=== PATIENT | male | born 1970 | race Caucasian/White ===

== ENCOUNTER → 2018-06-20 14:57 | Outpatient (REF) | payer OTHER, SELFPAY ==
[2018-06-20 18:35] LABS: Basophils % 0.3 % (0.1-2.0); Eosinophils # 0.1 K/mm3 (0.0-0.4); Eosinophils % 1.1 % (0.1-12.0); Hematocrit 42.3 % (42.0-52.0); Hemoglobin 14.1 g/dL (14.1-18.0); Lymphocytes # 2.4 K/mm3 (0.7-4.5); Lymphocytes % 46.2 K/mm3 (10-50); Mean Corpuscular HGB Conc 33.3 g/dL (31.8-35.4); Mean Corpuscular Hemoglobin 30.6 pg (27.0-31.2); Mean Corpuscular Volume 91.9 fl (80-94); Mean Platelet Volume 7.7 fl (7.4-10.4); Monocytes # 0.2 K/mm3 (0.1-1.0); Monocytes % 4.6 % (1.7-9.3); Neutrophils # 2.5 K/mm3 (1.8-7.8); Neutrophils % 47.8 % (37.0-80.0); Platelet Count 116 K/mm3 (142-424); Red Blood Count 4.61 M/mm3 (4.60-6.20); Red Cell Distribution Width 12.8 % (11.5-17.5); White Blood Count 5.3 K/mm3 (4.8-10.8)
[2018-06-20 18:56] LABS: Alanine Aminotransferase 39 U/L (12-78); Albumin Level 3.6 gm/dL (3.4-5.0); Albumin/Globulin Ratio 1.1 (1.1-1.8); Alkaline Phosphatase 193 U/L (46-116); Aspartate Amino Transferase 26 U/L (15-37); Bilirubin,Total 0.3 mg/dL (0.2-1.0); Blood Urea Nitrogen 4 mg/dL (7-18); Calcium 8.9 mg/dL (8.5-10.1); Carbon Dioxide 29 mmol/L (21.0-32.0); Chloride 99 mmol/L (98-107); Cholesterol 132 mg/dL (140-200); Creatinine,Serum 0.99 mg/dL (0.70-1.30); Estimated Glomerular Filt Rate 81 ml/min (>60); Free T4 (Free Thyroxine) 1.02 ng/dl (0.76-1.46); GFR (African American) 98 ML/MIN (>60); Globulin 3.3 gm/dl (1.3-3.2); Glucose 394 mg/dL (74-106); HDL Cholesterol 22 mg/dL (27-67); Sodium 136 mmol/L (136-145); Thyroid Stimulating Hormone 0.94 uIU/ml (0.358-3.740); Total Protein,Serum 6.9 gm/dL (6.4-8.2)
[2018-06-20 19:00] LABS: Hemoglobin A1C 9.7 % (0.0-7.0)
[2018-06-20 19:01] LABS: Triglycerides 420 mg/dL (30-200)
[2018-06-22 10:13] LABS: Creatinine, Urine 79.6 mg/dL (Not Estab.); Microalbumin, Urine 3.7 ug/mL (Not Estab.)
== END ==
LOC: LAB 14:57
PROVIDERS: Visit Provider Emergency Medicine
DX: I10 Essential (primary) hypertension (principal); E11.9 Type 2 diabetes mellitus without complications
CPT/HCPCS: 80053; 80061; 82043; 82570; 83036; 84439; 84443; 85025

== ENCOUNTER → 2018-12-23 16:39 | Outpatient (CLI) | payer OTHER, SELFPAY ==
[2018-12-23 17:27] LABS: Basophils % 0.3 % (0.1-2.0); Eosinophils # 0.1 K/mm3 (0.0-0.4); Eosinophils % 1.4 % (0.1-12.0); Hematocrit 44.7 % (42.0-52.0); Hemoglobin 15.3 g/dL (14.1-18.0); Lymphocytes # 2.4 K/mm3 (0.7-4.5); Lymphocytes % 34.2 % (10-50); Mean Corpuscular HGB Conc 34.3 g/dL (31.8-35.4); Mean Corpuscular Hemoglobin 31.2 pg (27.0-31.2); Mean Corpuscular Volume 90.9 fl (80-94); Mean Platelet Volume 8.2 fl (7.4-10.4); Monocytes # 0.4 K/mm3 (0.1-1.0); Monocytes % 5.4 % (1.7-9.3); Neutrophils # 4.1 K/mm3 (1.8-7.8); Neutrophils % 58.6 % (37.0-80.0); Platelet Count 175 K/mm3 (142-424); Red Blood Count 4.92 M/mm3 (4.60-6.20); White Blood Count 6.9 K/mm3 (4.8-10.8)
[2018-12-23 17:49] LABS: Alanine Aminotransferase 36 U/L (12-78); Albumin/Globulin Ratio 1.1 (1.1-1.8); Alkaline Phosphatase 112 U/L (46-116); Anion Gap 12.9 mEq/L (5-15); Aspartate Amino Transferase 28 U/L (15-37); Bilirubin,Total 0.5 mg/dL (0.2-1.0); Blood Urea Nitrogen 11 mg/dL (7-18); Calcium 9.3 mg/dL (8.5-10.1); Carbon Dioxide 32 mmol/L (21.0-32.0); Chloride 97 mmol/L (98-107); Chol/HDL Ratio 6.7 (1-3.5); Cholesterol 141 mg/dL (140-200); Creatinine,Serum 1.04 mg/dL (0.70-1.30); Estimated Glomerular Filt Rate 76 ml/min (>60); Free T4 (Free Thyroxine) 1.05 ng/dl (0.76-1.46); GFR (African American) 92 ML/MIN (>60); Globulin 3.7 gm/dl (1.3-3.2); Glucose 198 mg/dL (74-106); HDL Cholesterol 21 mg/dL (27-67); Potassium 3.9 mmoL/L (3.5-5.1); Sodium 138 mmol/L (136-145); Thyroid Stimulating Hormone 1.14 uIU/ml (0.358-3.740); Total Protein,Serum 7.7 gm/dL (6.4-8.2)
[2018-12-23 17:50] LABS: Triglycerides 417 mg/dL (30-200)
[2018-12-23 19:32] LABS: Hemoglobin A1C 8.5 % (0.0-7.0)
== END ==
PROVIDERS: Visit Provider Emergency Medicine
DX: E11.9 Type 2 diabetes mellitus without complications (principal); Z79.84 Long term (current) use of oral hypoglycemic drugs
CPT/HCPCS: 80053; 80061; 82652; 83036; 84439; 84443; 85025

== ENCOUNTER → 2019-01-29 17:48 | Outpatient (CLI) | payer OTHER, SELFPAY ==
[2019-01-29 19:00] LABS: Alanine Aminotransferase 36 U/L (12-78); Albumin/Globulin Ratio 1.1 (1.1-1.8); Alkaline Phosphatase 132 U/L (46-116); Anion Gap 13.8 mEq/L (5-15); Aspartate Amino Transferase 26 U/L (15-37); Bilirubin,Total 0.6 mg/dL (0.2-1.0); Blood Urea Nitrogen 11 mg/dL (7-18); Carbon Dioxide 28 mmol/L (21.0-32.0); Chloride 98 mmol/L (98-107); Creatinine,Serum 0.85 mg/dL (0.70-1.30); Estimated Glomerular Filt Rate 96 ml/min (>60); GFR (African American) 116 ML/MIN (>60); Globulin 3.8 gm/dl (1.3-3.2); Glucose 198 mg/dL (74-106); Potassium 3.8 mmoL/L (3.5-5.1); Sodium 136 mmol/L (136-145); Total Protein,Serum 7.8 gm/dL (6.4-8.2)
[2019-01-31 18:09] LABS: Vitamin B12 222 pg/mL (232-1245)
== END ==
PROVIDERS: Visit Provider Nurse Practitioner Family
DX: N28.9 Disorder of kidney and ureter, unspecified (principal)
CPT/HCPCS: 80053; 82607

== ENCOUNTER → 2019-02-19 14:11 | Outpatient (POV) | payer OTHER, SELFPAY | PROVIDERS: Visit Provider Internal Medicine Nephrology | DX: Z00.00 Encounter for general adult medical examination without abnormal findings (principal) ==

== ENCOUNTER → 2020-01-27 16:41 | Outpatient (CLI) | payer OTHER, SELFPAY ==
[2020-01-27 17:16] LABS: Chloride 97 mmol/L (98-107); Potassium 3.8 mmoL/L (3.5-5.1); Sodium 130 mmol/L (136-145)
[2020-01-27 17:18] LABS: Alanine Aminotransferase 36 U/L (12-78); Alkaline Phosphatase 236 U/L (38-126); Aspartate Amino Transferase 44 U/L (17-59); Bilirubin,Total 0.6 mg/dl (0.2-1.3); Blood Urea Nitrogen 5 mg/dl (9-20); Estimated Glomerular Filt Rate 143 ml/min (>60); GFR (African American) 173 ML/MIN (>60)
[2020-01-27 17:19] LABS: Albumin Level 3.9 g/dl (3.5-5.0); Albumin/Globulin Ratio 1.4 (1.1-1.8); Anion Gap 9.8 mEq/L (5-15); Calcium 9.2 mg/dl (8.4-10.2); Carbon Dioxide 27 mmol/L (22.0-30.0); Chol/HDL Ratio 3.2 (1-3.5); Cholesterol 119 mg/dl (140-200); Globulin 2.8 g/dL (1.3-3.2); Glucose 333 mg/dl (74-100); HDL Cholesterol 37 mg/dl (40-60); Total Protein,Serum 6.7 g/dl (6.3-8.2); Triglycerides 206 mg/dl (30-150); VLDL Cholesterol 41 mg/dL (0-40)
[2020-01-27 17:31] LABS: Direct LDL Cholesterol 69.68 mg/dL (100-129)
[2020-01-27 17:35] LABS: T4 (Thyroxine) 13.4 ug/dl (5.53-11.0)
[2020-01-27 17:49] LABS: Thyroid Stimulating Hormone 1.32 uIU/mL (0.465-4.68)
[2020-01-29 07:38] LABS: Vitamin D 25 Hydroxy 38.5 ng/mL (30.0-100.0)
[2020-01-29 09:11] LABS: Creatinine, Urine 202.2 mg/dL (Not Estab.); Microalbumin, Urine 47.5 ug/mL (Not Estab.)
== END ==
PROVIDERS: Visit Provider Emergency Medicine
DX: E11.9 Type 2 diabetes mellitus without complications (principal); G62.9 Polyneuropathy, unspecified; Z79.4 Long term (current) use of insulin
CPT/HCPCS: 80053; 80061; 82043; 82570; 82652; 84436; 84443

== ENCOUNTER → 2020-03-23 15:29 | Outpatient (CLI) | payer OTHER, SELFPAY ==
--- NOTE | 2020-03-23 15:31 | XR_ITS ---
PROCEDURE: XR FOOT WT BEARING RT 3V CLINICAL INDICATION: pain COMPARISON: No exams were available for comparison FINDINGS: No fracture or dislocation. No lytic or blastic change. There is normal mineralization. There are mild osteoarthritic changes at the 1st MTP joint, 1st interphalangeal joint, talonavicular joint, and navicular cuneiform joint. Other findings:None. IMPRESSION: Mild osteoarthritis Dictated by: Glenn Apple MD 03/23/2020 16:14 Electronically signed by Glenn Apple MD in [place] 03/23/2020 16:14
--- NOTE | 2020-03-23 15:31 | XR_ITS ---
PROCEDURE: XR FOOT WT BEARING LT 3V CLINICAL INDICATION: Pain COMPARISON: No exams were available for comparison FINDINGS: No fracture or dislocation. No lytic or blastic change. There is normal mineralization. Mild osteoarthritis 1st MTP joint, 1st interphalangeal joint, talonavicular and navicular cuneiform joint. Other findings:No obvious lytic lesion evident. IMPRESSION: Mild osteoarthritis Dictated by: Glenn Apple MD 03/23/2020 16:15 Electronically signed by Glenn Apple MD in [place] 03/23/2020 16:15
== END ==
PROVIDERS: PCP Emergency Medicine; Visit Provider Nurse Practitioner
DX: M79.672 Pain in left foot (principal); M79.671 Pain in right foot; E11.8 Type 2 diabetes mellitus with unspecified complications; Z79.4 Long term (current) use of insulin
CPT/HCPCS: 73630

== ENCOUNTER 2020-07-13 12:09 | Emergency (ER) | payer OTHER, SELFPAY ==
[2020-07-13 12:11] VITALS: BP 131/81; PULSE 80; RESP 16; TEMP 37.1; O2SAT 97; BMI 35.9
--- NOTE | 2020-07-13 12:16 | HMH.EDBACK ---
ED Disposition Clinical Impression: Back pain Qualifiers: Back pain location: low back pain Chronicity: acute Back pain laterality: left Sciatica presence: without sciatica Qualified Code(s): M54.5 - Low back pain Disposition: Home, Self-Care Condition on Discharge: Good Instructions: DI for Low Back Pain Referrals: Eugene Richards MD [Primary Care Provider] - - Critical Care Critical Care Time: No Attestation: On , the high probability of a clinically significant, sudden or life threatening deterioration of the following system(s) required my full and direct attention, intervention and personal management. The time I documented below is in addition to time spent performing reported procedures but includes the following listed in this critical care notation. Medical Decision Making - Medical Records Medical records reviewed: Yes: I reviewed the patient's medical records. - Doug Inquiry Pt receiving controlled substance: No Vital Signs: 07/13/20 12:11 07/13/20 12:44 Temperature 98.8 F Temperature Source Oral Pulse Rate [Right Radial] 80 79 Respiratory Rate 16 Blood Pressure [Right Arm] 131/81 142/89 H Blood Pressure Mean [Right Arm] 97 106 Blood Pressure Source [Right Arm] Automatic Cuff Automatic Cuff Blood Pressure Position [Right Arm] Sitting Sitting 02 Sat by Pulse Oximetry 97 98 Oxygen Delivery Method Room Air Orders (Tests/Meds): ED MEDICATIONS Discontinued Medications Generic Name Dose Route Start Last Admin Trade Name Simi PRN Reason Stop Dose Admin Ketorolac Tromethamine 60 mg 07/13/20 12:23 07/13/20 12:26 Ketorolac 60mg/2ml Vial IM 07/13/20 12:24 60 mg ONCE ONE Administration - CT Data CT Scan: L-Spine Time Received: 13:[address] Reviewed: Yes: I have reviewed the patient's CT results Findings Narrative: 1. Spine stimulator electrode entering the spinal canal at the L1-2 level and extending upward 2. Posterior osteophytic spurring L4-5 resulting in true bony spinal stenosis at this level 3. Multilevel hypertrophic facet changes Medical Decision Narrative: Patient remains neurovascularly intact, no new motor or sensory symptoms and no signs of cauda equina. He does have a painful retained stimulator which may need further assessment/removal. Unfortunately, Dr. Peacock is not in today, but we were able to obtain an appointment for the patient on Saturday at [address] scan shows some stenosis, arthritis, but no acute findings. He is afebrile, no signs of infection on physical exam or history. I discussed this case also with Dr. Richards who advises that the patient can follow-up in his office for pain control. Given Toradol here. Discharged home. Back Pain HPI - General Stated Complaint: back pain Time Seen by Provider: 07/13/20 12:17 Mode of Arrival: Ambulatory Source of Information: Patient Limitations: No Limitations - History of Present Illness HPI Narrative: This is a 50-year-old male with a past medical history significant for chronic back pain who presents to the emergency department for 2 days of pain over a spinal stimulator in the left lumbar region. Stimulator was placed 20 years ago and only worked for about 5 years. He states initially it started off more laterally and over the years has migrated more medially. He has had pain intermittently over the area of the stimulator for several years, but he feels like it has been much worse over the last 2 days. No known exacerbating or alleviating factors. No fevers, loss of bowel or bladder control or motor or sensory changes to his lower extremities. No trauma. He saw his primary care provider today, Dr. Richards, who advised that he come to the emergency room for a CT scan and consultation with Dr. Peacock. - Related Data Home Medications Medication Instructions Recorded Confirmed Fluticasone/Vilanterol [Breo 1 inh INHALATION Q24H 10/29/18 07/13/20 Ellipta] Previous Rx's Medication
--- NOTE | 2020-07-13 12:20 | CT_ITS ---
PROCEDURE: CT LUMBAR SPINE WO CON CLINICAL HISTORY: migrating spine stimulator? Back pain COMPARISON: No exams were available for comparison TECHNIQUE: Axial images obtained with sagittal and coronal reformats. All CT scans at the facility use one or more dose reduction, viz: automated exposure control, ma/kV adjustment per patient size (including targeted exams where dose is matched to indication, i.e. head), or iterative reconstruction technique. FINDINGS: There is normal curvature and alignment. All lumbar vertebrae appear intact. There is mild posterior osteophytic spurring at the L4-5 level. The electrode for the spine stimulator device enters the spinal canal between the spinous processes of L1 and L2 and extends upward at least to the T11-12 level which is at the top edge of the field of view on this study. The stimulator device sits just posterior to the S1-S2 level in the soft tissues. The spinal canal is lower limits of normal in size throughout. There is probable bony spinal stenosis at L4-5 level secondary to the posterior osteophytic spurring. There is bilateral neural foraminal narrowing at this level as well. There is no abnormal disc protrusion. There are mild hypertrophic facet changes throughout the lumbar spine most prominent at the L5-S1 level. IMPRESSION: 1. Spine stimulator electrode entering the spinal canal at the L1-2 level and extending upward 2. Posterior osteophytic spurring L4-5 resulting in true bony spinal stenosis at this level 3. Multilevel hypertrophic facet changes Dictated by: Dr. Loy Mclaughlin MD 07/13/2020 12:59 Dr. Loy Mclaughlin MD in [place] 07/13/2020 12:59
--- NOTE | 2020-07-13 12:30 | PC.NURSE ---
Pt to rad.
--- NOTE | 2020-07-13 12:30 | PC.NURSE ---
pt to CT
[2020-07-13 12:44] VITALS: BP 142/89; PULSE 79; O2SAT 98
--- NOTE | 2020-07-13 12:44 | PC.NURSE ---
Pt returned from rad.
--- NOTE | 2020-07-13 13:08 | PC.NURSE ---
Called Dr Peacock office, spoke with Lyssa, she stated that dr Peacock is not in the office today but they would get in touch with him and try to get pt on his schedule for saturday.
--- NOTE | 2020-07-13 13:14 | PC.NURSE ---
pt has an appt on Saturday at 3pm with dr. tejada
[2020-07-13 13:31] VITALS: BP 142/89; PULSE 79; RESP 16; TEMP 37.1; O2SAT 98
== END 2020-07-13 13:32 | disposition home or self-care (01) ==
PROVIDERS: Emergency Provider Emergency Medicine; PCP Emergency Medicine
DX: M54.5 Low back pain (principal); J44.9 Chronic obstructive pulmonary disease, unspecified; F33.1 Major depressive disorder, recurrent, moderate; E11.9 Type 2 diabetes mellitus without complications; E78.5 Hyperlipidemia, unspecified; I10 Essential (primary) hypertension; F17.210 Nicotine dependence, cigarettes, uncomplicated; Z79.899 Other long term (current) drug therapy
CPT/HCPCS: 72131; 96372; 99282

== ENCOUNTER → 2020-10-17 19:00 | Outpatient (CLI) | payer OTHER, SELFPAY ==
[2020-10-17 19:12] LABS: Basophils % 0.4 % (0.1-2.0); Eosinophils # 0.1 K/mm3 (0.0-0.4); Eosinophils % 1.7 % (0.1-12.0); Hematocrit 48.7 % (42.0-52.0); Lymphocytes % 40.1 % (10-50); Mean Corpuscular Hemoglobin 32.3 pg (27.0-31.2); Mean Corpuscular Volume 97.8 fl (80-94); Mean Platelet Volume 8.8 fl (7.4-10.4); Monocytes # 0.4 K/mm3 (0.1-1.0); Monocytes % 5.6 % (1.7-9.3); Neutrophils % 52.2 % (37.0-80.0); Platelet Count 160 K/mm3 (142-424); Red Blood Count 4.98 M/mm3 (4.60-6.20); Red Cell Distribution Width 13.7 % (11.5-17.5); White Blood Count 7.6 K/mm3 (4.8-10.8)
[2020-10-17 20:38] LABS: Alanine Aminotransferase 21 U/L (12-78); Albumin Level 4.4 g/dl (3.5-5.0); Albumin/Globulin Ratio 1.4 (1.1-1.8); Alkaline Phosphatase 131 U/L (38-126); Anion Gap 11.1 mEq/L (5-15); Aspartate Amino Transferase 31 U/L (17-59); Bilirubin,Total 0.5 mg/dl (0.2-1.3); Blood Urea Nitrogen 12 mg/dl (9-20); Calcium 9.3 mg/dl (8.4-10.2); Carbon Dioxide 28 mmol/L (22.0-30.0); Chloride 102 mmol/L (98-107); Chol/HDL Ratio 6.1 (1-3.5); Cholesterol 172 mg/dl (140-200); Estimated Glomerular Filt Rate 89 ml/min (>60); GFR (African American) 108 ML/MIN (>60); Globulin 3.1 g/dL (1.3-3.2); Glucose 220 mg/dl (74-100); HDL Cholesterol 28 mg/dl (40-60); Potassium 4.1 mmoL/L (3.5-5.1); Sodium 137 mmol/L (136-145); Total Protein,Serum 7.5 g/dl (6.3-8.2); Triglycerides 314 mg/dl (30-150); VLDL Cholesterol 63 mg/dL (0-40)
[2020-10-17 20:49] LABS: Direct LDL Cholesterol 89.17 mg/dL (100-129)
[2020-10-17 20:58] LABS: Free T4 (Free Thyroxine) 1.17 ng/dl (0.78-2.19)
[2020-10-17 21:11] LABS: Prostate Specific Ag Screen 0.3 ng/ml (0.0-4.0); Thyroid Stimulating Hormone 2.63 uIU/mL (0.465-4.68)
== END ==
PROVIDERS: Visit Provider Emergency Medicine
DX: E11.9 Type 2 diabetes mellitus without complications (principal); E78.5 Hyperlipidemia, unspecified; I10 Essential (primary) hypertension; Z72.0 Tobacco use; Z79.4 Long term (current) use of insulin; Z79.899 Other long term (current) drug therapy; Z12.5 Encounter for screening for malignant neoplasm of prostate
CPT/HCPCS: 80053; 80061; 83036; 84439; 84443; 85025; G0103

== ENCOUNTER → 2020-11-25 14:52 | Outpatient (CLI) | payer OTHER, SELFPAY ==
--- NOTE | 2020-11-25 14:58 | XR_ITS ---
PROCEDURE: XR FOOT LT MIN 3V CLINICAL INDICATION: diabetic foot Redness in 1st COMPARISON: CR XR FOOT WT BEARING RT 3V from 03/23/2020 CR XR FOOT WT BEARING LT 3V from 03/23/2020 FINDINGS: Mild osteoarthritic changes are present at the 1st metatarsophalangeal joint. Soft tissue swelling medial to the 1st interphalangeal joint. A thin curvilinear lucency is noted medial to the interphalangeal joint of the great toe suggesting a small amount of soft tissue gas versus bandage artifact. Osteoarthritic changes are present involving the tarsal metatarsal junction. No bony erosive process is evident. IMPRESSION: Osteoarthritic change. Curvilinear lucency medial to the 1st interphalangeal joint and could be related to small amount of soft tissue gas versus bandage artifact. Gas could be due to infection or open ulceration or recent manipulation. Soft tissue swelling is present at this region. Dictated by: Glenn Apple MD 11/25/2020 15:40 Glenn Apple MD in [place] 11/25/2020 15:40
[2020-11-25 16:09] LABS: Basophils % 0.5 % (0.1-2.0); Eosinophils # 0.1 K/mm3 (0.0-0.4); Hematocrit 47.9 % (42.0-52.0); Hemoglobin 15.1 g/dL (14.1-18.0); Lymphocytes # 1.8 K/mm3 (0.7-4.5); Lymphocytes % 28.7 % (10-50); Mean Corpuscular HGB Conc 31.5 g/dL (31.8-35.4); Mean Corpuscular Hemoglobin 31.2 pg (27.0-31.2); Mean Platelet Volume 7.3 fl (7.4-10.4); Monocytes # 0.3 K/mm3 (0.1-1.0); Monocytes % 4.2 % (1.7-9.3); Neutrophils # 4.2 K/mm3 (1.8-7.8); Neutrophils % 65.7 % (37.0-80.0); Platelet Count 177 K/mm3 (142-424); Red Blood Count 4.84 M/mm3 (4.60-6.20); Red Cell Distribution Width 12.8 % (11.5-17.5); White Blood Count 6.4 K/mm3 (4.8-10.8)
[2020-11-25 16:22] LABS: Alanine Aminotransferase 20 U/L (12-78); Albumin Level 4.4 g/dl (3.5-5.0); Albumin/Globulin Ratio 1.3 (1.1-1.8); Alkaline Phosphatase 125 U/L (38-126); Anion Gap 10.3 mEq/L (5-15); Aspartate Amino Transferase 32 U/L (17-59); Bilirubin,Total 0.5 mg/dl (0.2-1.3); Blood Urea Nitrogen 8 mg/dl (9-20); Calcium 9.3 mg/dl (8.4-10.2); Carbon Dioxide 31 mmol/L (22.0-30.0); Chloride 99 mmol/L (98-107); Estimated Glomerular Filt Rate 119 ml/min (>60); GFR (African American) 144 ML/MIN (>60); Globulin 3.3 g/dL (1.3-3.2); Glucose 238 mg/dl (74-100); Potassium 4.3 mmoL/L (3.5-5.1); Sodium 136 mmol/L (136-145); Total Protein,Serum 7.7 g/dl (6.3-8.2)
[2020-11-25 16:28] LABS: C-Reactive Protein 4.4 mg/L (0-4)
[2020-11-25 16:34] LABS: Erythrocyte Sedimentation Rate 16 mm/hr (0-15)
== END ==
PROVIDERS: PCP Emergency Medicine; Visit Provider Emergency Medicine
DX: E11.8 Type 2 diabetes mellitus with unspecified complications (principal); L08.9 Local infection of the skin and subcutaneous tissue, unspecified; Z79.4 Long term (current) use of insulin
CPT/HCPCS: 36415; 73630; 80053; 83036; 85025; 85651; 86140

== ENCOUNTER 2020-12-08 12:15 | Emergency (ER) | payer OTHER, SELFPAY ==
[2020-12-08 12:16] VITALS: PULSE 105; RESP 16; TEMP 37; O2SAT 98; BMI 35.2
--- NOTE | 2020-12-08 12:24 | XR_ITS ---
PROCEDURE: XR SHOULDER LT MIN 2V CLINICAL INDICATION: PAIN COMPARISON: No exams were available for comparison FINDINGS: There are mild osteoarthritic changes the glenohumeral joint and acromioclavicular joint. Postsurgical changes of the acromioclavicular joint with clip at the distal clavicle. There is some spurring along the undersurface of the a chromium with subacromial stenosis which may result in rotator cuff issues. There is a small area of hyperostosis involving the proximal shaft of the humerus medially benign-appearing. No acute fracture or dislocation. No lytic or blastic change. IMPRESSION: Osteoarthritic and postsurgical changes with subacromial stenosis. No acute finding. Dictated by: Glenn Apple MD 12/08/2020 12:58 Glenn Apple MD in [place] 12/08/2020 12:58
[2020-12-08 12:42] VITALS: BP 150/86; PULSE 100; RESP 19; O2SAT 98; BMI 26.4
--- NOTE | 2020-12-08 12:47 | HMH.EDUTC ---
[facility] [place] Clinical Impression: Shoulder pain, left Qualifiers: Chronicity: unspecified Qualified Code(s): M25.512 - Pain in left shoulder Disposition: Home, Self-Care Condition on Discharge: Good Instructions: DI for Chronic Pain -- Adult, DI for Shoulder Pain Additional Instructions: *Ibuprofen bairon 6 hours with meal as needed for pain/inflammation *Remember you had a Toradol shot in the clinic today, which is similar to Motrin *Not additional anti-inflammatory like motrin, aleve, advil with the above amount of ibuprofen. You can still take Tylenol every 4 hours as needed if you need something else for pain * moist heat every 20 minutes 3-4 times a day to affected area *Keep this area active, no movement leads to more stiffness, However take it easy and avoid heavy lifting pushing or pulling *Follow up with you family doctor if no improvement for further treatment Follow up with Dr Mckenna as scheduled on January 03 at 2pm Return if needed Straight to ER if any life threatening symptom Referrals: Eugene Richards MD [Primary Care Provider] - As needed Josue Mckenna MD [Staff Physician] - 01/03/21 2:00 pm Time of Disposition: 13:22 Medical Decision Making - Doug Inquiry Pt receiving controlled substance: No Doug was queried for this patient: No Vital Signs: 12/08/20 12:16 12/08/20 12:42 Temperature 98.6 F Temperature Source Oral Pulse Rate [Radial] 105 H 100 H Respiratory Rate 16 19 Blood Pressure [Right Arm] 150/86 H Blood Pressure Mean [Right Arm] 107 Blood Pressure Source [Right Arm] Automatic Cuff 02 Sat by Pulse Oximetry 98 98 Oxygen Delivery Method Room Air - Radiology Data #1 Image(s): Shoulder Image Reviewed: Yes I have reviewed radiologist's interpretation Osteoarthritic and postsurgical changes with subacromial stenosis. No acute finding. - Physician Consults Physician Consulted: Bala Time: 13:06 Reason -: Orthopedic Eval/Care Comment/Response: Spoke with staff at Dr Mckenna office and informed them of patient complaint and xray reading patient given appointment for January 03 at 2pm [facility] [place] HPI - General Stated complaint: Lt shoulder pain, unknown origin Time Seen by Provider: 12/08/20 12:48 Mode of Arrival: Ambulatory Source of Information: Patient Limitations: No Limitations Description of Symptoms (Recalled from Triage Doc. by RN): TO ED PER PVT CAR WITH C/O LT SHOULDER PAIN X 1 YEAR PROGRESSIVELY GETTING WORSE - History of Present Illness Provider Complaint: Patient states that he injuried his left shoulder about 15 yrs ago and it was doing fine until about a year ago States that for the last year he has continued to have pain on and off with certain movements that has continued to get worse States that he was supose to have a CT done on the shoulder a month or so ago but wasnt able to keep the appointment due to weather States that last night it started hurting again so today he came in to get it checked - Related Data Home Medications Medication Instructions Recorded Confirmed Fluticasone/Vilanterol [Breo 1 inh INHALATION Q24H 10/29/18 12/08/20 Ellipta] Amlodipine Besylate [Amlodipine See Rx Instructions .ROUTE .COMPLEX 12/08/20 12/08/20 5mg tab] Aspirin [Low Dose Aspirin EC] See Rx Instructions .ROUTE .COMPLEX 12/08/20 12/08/20 Blood Sugar Diagnostic [Advanced See Rx Instructions .ROUTE 12/08/20 12/08/20 Gluc Meter Test Strip] .MEDSUPPLY Blood-Glucose Meter [Blood Glucose See Rx Instructions .ROUTE 12/08/20 12/08/20 Meter] .MEDSUPPLY Cholecalciferol (Vitamin D3) See Rx Instructions .ROUTE .COMPLEX 12/08/20 12/08/20 [Vitamin D3] Insulin NPH Hum/Reg Insulin Hm See Rx Instructions .ROUTE .COMPLEX 12/08/20 12/08/20 [Humulin 70/30 Insulin 100 Units/mL 10mL Vial] Lancets [Pip Lancet] See Rx Instructions .ROUTE 12/08/20 12/08/20 .MEDSUPPLY Lovastatin See Rx Instructions .ROUTE .COMPLEX 12/08/20 12/08/20 Metformin HCl [Glucophage] See Rx Inst
[2020-12-08 13:15] VITALS: BP 148/89; PULSE 99; RESP 18; TEMP 37
== END 2020-12-08 13:24 | disposition home or self-care (01) ==
PROVIDERS: Emergency Provider Nurse Practitioner; PCP Emergency Medicine
DX: M25.512 Pain in left shoulder (principal); E11.9 Type 2 diabetes mellitus without complications; E78.5 Hyperlipidemia, unspecified; I10 Essential (primary) hypertension; J44.9 Chronic obstructive pulmonary disease, unspecified; F33.1 Major depressive disorder, recurrent, moderate; F17.210 Nicotine dependence, cigarettes, uncomplicated; Z79.899 Other long term (current) drug therapy
CPT/HCPCS: 73030; 99202; G0463

== ENCOUNTER → 2021-02-15 12:48 | Outpatient (CLI) | payer OTHER, SELFPAY ==
--- NOTE | 2021-02-15 12:51 | IR_ITS ---
PROCEDURE: IR ARTHROGRAM SHOULDER LT CLINICAL INDICATION: evaluate for rotator cuff tear. Prior surgery. COMPARISON: CR XR SHOULDER LT MIN 2V from 12/08/[address] SHOULDER LT W CON from 02/15/2021 FINDINGS: Following obtaining informed consent and time-out procedure using fluoroscopic guidance and local anesthesia with 1 percent buffered lidocaine, 21 gauge spinal needle was inserted into the shoulder joint via the anterior subcoracoid approach. Approximately 12 mL of a mixture Isovue, gadolinium, and lidocaine were injected into the shoulder joint. The patient tolerated the procedure well without evidence of immediate complication. The Images obtained demonstrates abnormal localization of contrast in the subacromial region outlining the supraspinatus tendon consistent with a full-thickness tear of the supraspinatus tendon. Contrast is also localized along the inferior aspect of the rotator cuff laterally and may represent localization within a tear. Please see the post arthrogram CT report. There is an anchor screw at the distal clavicle. The contrast injected easily with no evidence of adhesive capsulitis. IMPRESSION: The findings are compatible with a full thickness tear of the rotator cuff. Please see the CT arthrogram report for further detail Dictated by: Glenn Apple MD 02/16/2021 09:06 Glenn Apple MD in [place] 02/16/2021 09:06
--- NOTE | 2021-02-15 13:44 | CT_ITS ---
PROCEDURE: CT SHOULDER LT W CON CLINICAL HISTORY: evaluate for rotator cuff Left shoulder pain with limited range of motion COMPARISON: ORAL,SUZIE IR ARTHROGRAM SHOULDER LT from 02/15/2021 TECHNIQUE: Please see arthrogram report for procedure details. Images were obtained following intra-articular injection of contrast. Axial images obtained with sagittal and coronal reformats. All CT scans at the facility use one or more dose reduction, viz: automated exposure control, ma/kV adjustment per patient size (including targeted exams where dose is matched to indication, i.e. head), or iterative reconstruction technique. FINDINGS: There has been prior surgery of the shoulder with a small screw in the distal aspect of the acromion. Hypertrophic changes are present at the acromioclavicular joint. There is subacromial stenosis with a subacromial space measuring approximately 4 mm. There is abnormal localization of contrast in the subacromial region consistent with a full-thickness rotator cuff tear. The tear does appear to be anterior within the supraspinatus tendon region. No obvious labral tear. No acute fracture or dislocation. There is a high-riding humeral head with mild osteoarthritic changes of the glenohumeral joint. IMPRESSION: 1. Full-thickness tear of the rotator cuff which may be within the supraspinatus tendon anteriorly. 2. Postsurgical changes of the acromioclavicular joint with high-riding humeral head and severe subacromial stenosis. 3. Osteoarthritic changes of the AC joint and left shoulder. Dictated by: Glenn Apple MD 02/22/2021 08:59 Glenn Apple MD in [place] 02/22/2021 08:59
== END ==
PROVIDERS: PCP Emergency Medicine; Visit Provider Orthopaedic Surgery
DX: M25.512 Pain in left shoulder (principal)
CPT/HCPCS: 73040; 73201; Q9967

== ENCOUNTER 2021-03-11 13:22 | Emergency (ER) | payer OTHER, SELFPAY ==
[2021-03-11 13:25] VITALS: BP 185/98; PULSE 95; RESP 18; TEMP 36.9; O2SAT 99; BMI 32.3
--- NOTE | 2021-03-11 13:37 | HMH.EDGENADL ---
ED Disposition Clinical Impression: Adrenal nodule, Diverticulosis Disposition: Home, Self-Care Condition on Discharge: Good Referrals: Eugene Richards MD [Primary Care Provider] - 3 days Time of Disposition: 15:25 - Critical Care Critical Care Time: No Attestation: On 03/11/21, the high probability of a clinically significant, sudden or life threatening deterioration of the following system(s) required my full and direct attention, intervention and personal management. The time I documented below is in addition to time spent performing reported procedures but includes the following listed in this critical care notation. Medical Decision Making - Medical Records Medical records reviewed: Yes: I reviewed the patient's medical records. - Doug Inquiry Pt receiving controlled substance: No Vital Signs: 03/11/21 13:25 03/11/21 15:16 Temperature 98.4 F Temperature Source Oral Pulse Rate 83 Pulse Rate [Left] 95 H Respiratory Rate 18 Blood Pressure 160/95 H Blood Pressure [Left Arm] 185/98 H Blood Pressure Mean [Left Arm] 127 Blood Pressure Source [Left Arm] Automatic Cuff Blood Pressure Position [Left Arm] Sitting 02 Sat by Pulse Oximetry 99 99 Oxygen Delivery Method Room Air - Lab Data Lab results reviewed: Yes: I reviewed the patient's lab results. Lab Results 03/11/21 13:40: WBC 6.4, RBC 4.51 L, Hgb 14.3, Hct 41.3 L, MCV 91.5, MCH 31.8 H, MCHC 34.7, RDW 13.4, Plt Count 130 L, MPV 8.3, Neut % (Auto) 53.3, Lymph % (Auto) 38.1, [place] % (Auto) 6.3, Eos % (Auto) 2.0, Baso % (Auto) 0.3, Neut # (Auto) 3.4, Lymph # (Auto) 2.4, [place] # (Auto) 0.4, Eos # (Auto) 0.1, Baso # (Auto) 0.0 03/11/21 13:40: Sodium 136, Potassium 3.9, Chloride 96 L, Carbon Dioxide 30, Anion Gap 13.9, BUN 7 L, Creatinine 0.70, Estimated Creat Clear 196, Estimated GFR 119, Est GFR ( Amer) 144, Glucose 398 H, Calcium 9.2, Total Bilirubin 0.4, AST 35, ALT 30, Alkaline Phosphatase 302 H, Total Protein 7.4, Albumin 4.3, Globulin 3.1, Albumin/Globulin Ratio 1.4 Result diagrams: 03/11/21 13:40 03/11/21 13:40 Orders (Tests/Meds): ED MEDICATIONS Discontinued Medications Generic Name Dose Route Start Last Admin Trade Name Simi PRN Reason Stop Dose Admin Iopamidol 75 ml 03/11/21 14:39 03/11/21 14:39 Iopamidol-370 (76%);100ml Bottle IV 03/11/21 14:40 75 ml ONCE ONE Administration Sodium Chloride 10 ml 03/11/21 14:39 03/11/21 14:39 Sodium Chloride 0.9% 10ml Syr (Rad Only) IV 03/11/21 14:40 10 ml ONCE ONE Administration - CT Data CT Scan: Abdomen, Pelvis Time Received: 14:35 Preliminary Findings: Normal/NAD Findings Narrative: Adrenal nodule, diverticulosis without diverticulitis, stool burden Medical Decision Narrative: 51yo M evaluated for mass to his left lower quadrant. Patient in no acute distress. Routine screening labs and CT with IV contrast of been ordered. CT scan shows an adrenal nodule, diverticulosis without diverticulitis, fair amount of retained stool. Laboratory studies are benign. Results shared with patient at bedside. Encouraged to find bowel regiment that works well for him. Patient is appropriate stable for discharge home at this time. General Adult HPI - General Stated complaint: Lt side pain Time Seen by Provider: 03/11/21 13:38 Mode of Arrival: Ambulatory - History of Present Illness HPI narrative: 51yo M past medical history of hypertension diabetes present emergency department secondary to painful masses left lower abdomen. Patient believes this stems from a fall off a 4 foot patio approximately a month ago. He fell again recently but just noted the lesion yesterday. Denies any change in appetite. States his bowels are working normally. Denies any fever. Reports he has lost significant weight but that was after being diagnosed with diabetes and was intentional. He denies any fever, night sweats. - Related Data Home Medications Medication In
--- NOTE | 2021-03-11 13:58 | CT_ITS ---
PROCEDURE INFORMATION: Exam: CT Abdomen And Pelvis With Contrast Exam date and time: 03/11/2021 1:58 PM Age: 51 years old Clinical indication: Abdominal pain; Localized; Left lower quadrant (llq); Additional info: Palpable llq mass TECHNIQUE: Imaging protocol: Computed tomography of the abdomen and pelvis with contrast. Radiation optimization: All CT scans at this facility use at least one of these dose optimization techniques: automated exposure control; mA and/or kV adjustment per patient size (includes targeted exams where dose is matched to clinical indication); or iterative reconstruction. Contrast material: ISOVUE; Contrast volume: 75 ml; Contrast route: IV; COMPARISON: CT LUMBAR SPINE WO CON 07/13/2020 12:33 PM FINDINGS: Lungs: Atelectatic changes noted within the lung bases. Liver: There is a diffuse decrease in hepatic parenchymal density, consistent with mild fatty infiltration. Gallbladder and bile ducts: Normal. No calcified stones. No ductal dilation. Pancreas: Normal. No ductal dilation. Spleen: The spleen demonstrates punctate calcifications, consistent with remote granulomatous organism exposure. Adrenal glands: Mild thickening of the left adrenal gland. Right adrenal nodule measuring 2.0 cm, likely an adenoma. Kidneys and ureters: Nonspecific low-density foci of the kidneys statistically favor benign cysts, no further follow-up needed, as large as 1.5 cm on the left. Stomach and bowel: Moderate diverticulosis is present in the distal colon. A large amount of stool is noted throughout the colon. Appendix: No evidence of appendicitis. Intraperitoneal space: Normal. No significant fluid collection. Vasculature: The vasculature demonstrates diffuse mild atherosclerotic calcification. Lymph nodes: Unremarkable. No enlarged lymph nodes. Urinary bladder: Unremarkable as visualized. Reproductive: The prostate demonstrates mild nonspecific enlargement. The seminal vesicles are normal. Bones/joints: The lumbar spine demonstrates mild degenerative changes at multiple levels. Soft tissues: dental assistant overlies the posterior soft tissues. IMPRESSION: 1. Right adrenal nodule measuring 2.0 cm, likely an adenoma. 2. Moderate diverticulosis is present in the distal colon. 3. A large amount of stool is noted throughout the colon. COMMENTS: Consistent with the [employer]'s Incidental Findings Committee white paper (J Am Abril Radiol 2018): Any incidental renal lesion less than 1 cm or classified as too small to characterize, or any incidental cystic renal lesion characterized as simple-appearing, is likely benign. No follow-up imaging is recommended for these lesions per consensus recommendations based on imaging criteria.
[2021-03-11 14:07] LABS: Chloride 96 mmol/L (98-107); Potassium 3.9 mmoL/L (3.5-5.1); Sodium 136 mmol/L (136-145)
[2021-03-11 14:10] LABS: Alanine Aminotransferase 30 U/L (12-78); Albumin Level 4.3 g/dl (3.5-5.0); Albumin/Globulin Ratio 1.4 (1.1-1.8); Alkaline Phosphatase 302 U/L (38-126); Anion Gap 13.9 mEq/L (5-15); Aspartate Amino Transferase 35 U/L (17-59); Bilirubin,Total 0.4 mg/dl (0.2-1.3); Blood Urea Nitrogen 7 mg/dl (9-20); Carbon Dioxide 30 mmol/L (22.0-30.0); Creatinine Clearance Estimated 196 mL/min (50-200); Estimated Glomerular Filt Rate 119 ml/min (>60); GFR (African American) 144 ML/MIN (>60); Globulin 3.1 g/dL (1.3-3.2); Total Protein,Serum 7.4 g/dl (6.3-8.2)
[2021-03-11 14:11] LABS: Calcium 9.2 mg/dl (8.4-10.2); Glucose 398 mg/dl (74-100)
[2021-03-11 14:14] LABS: Basophils % 0.3 % (0.1-2.0); Eosinophils # 0.1 K/mm3 (0.0-0.4); Hematocrit 41.3 % (42.0-52.0); Hemoglobin 14.3 g/dL (14.1-18.0); Lymphocytes # 2.4 K/mm3 (0.7-4.5); Lymphocytes % 38.1 % (10-50); Mean Corpuscular HGB Conc 34.7 g/dL (31.8-35.4); Mean Corpuscular Hemoglobin 31.8 pg (27.0-31.2); Mean Corpuscular Volume 91.5 fl (80-94); Mean Platelet Volume 8.3 fl (7.4-10.4); Monocytes # 0.4 K/mm3 (0.1-1.0); Monocytes % 6.3 % (1.7-9.3); Neutrophils # 3.4 K/mm3 (1.8-7.8); Neutrophils % 53.3 % (37.0-80.0); Platelet Count 130 K/mm3 (142-424); Red Blood Count 4.51 M/mm3 (4.60-6.20); Red Cell Distribution Width 13.4 % (11.5-17.5); White Blood Count 6.4 K/mm3 (4.8-10.8)
--- NOTE | 2021-03-11 15:15 | PC.NURSE ---
Final reading for CT of abdomen and pelvis with contrast on pt given to
[2021-03-11 15:16] VITALS: BP 160/95; PULSE 83; O2SAT 99
[2021-03-11 15:36] VITALS: BP 149/88; PULSE 81; RESP 16; TEMP 36.7; O2SAT 100
== END 2021-03-11 15:39 | disposition home or self-care (01) ==
PROVIDERS: Emergency Provider Family Medicine; PCP Emergency Medicine
DX: E27.8 Other specified disorders of adrenal gland (principal); K57.90 Diverticulosis of intestine, part unspecified, without perforation or abscess without bleeding; E78.5 Hyperlipidemia, unspecified; I10 Essential (primary) hypertension; E11.65 Type 2 diabetes mellitus with hyperglycemia; J44.9 Chronic obstructive pulmonary disease, unspecified; F33.1 Major depressive disorder, recurrent, moderate; Z79.899 Other long term (current) drug therapy; F17.210 Nicotine dependence, cigarettes, uncomplicated
CPT/HCPCS: 74177; 80053; 85025; 99282; Q9967

== ENCOUNTER 2021-03-16 18:32 | Emergency (ER) | payer OTHER, SELFPAY ==
[2021-03-16 18:43] VITALS: BP 169/96; PULSE 78; RESP 14; TEMP 37.1; O2SAT 99; BMI 32.2
--- NOTE | 2021-03-16 18:49 | HMH.EDBACK ---
ED Disposition Clinical Impression: Constipation Knee pain Qualifiers: Laterality: left Disposition: Home, Self-Care Condition on Discharge: Good Instructions: DI for Constipation Additional Instructions: Recommend a cleanout protocol at home started by an enema of your choice. I then recommend 6 capfuls of MiraLAX in a 32 ounce Gatorade followed by 2 squares of small chocolate Ex-Lax and then a repeat 6 capfuls of MiraLAX in 32 ounces of Gatorade. Return to the ED for any new or worsening symptoms. Prescriptions: polyethylene glycoL 3350 [Miralax 17gm Packet] 17 gm PO DAILY #30 packet Transmission Status: Pending to [facility] #[id number] Referrals: Eugene Richards MD [Primary Care Provider] - Josue Mckenna MD [Staff Physician] - Time of Disposition: 20:15 - Critical Care Critical Care Time: No Attestation: On 03/16/21, the high probability of a clinically significant, sudden or life threatening deterioration of the following system(s) required my full and direct attention, intervention and personal management. The time I documented below is in addition to time spent performing reported procedures but includes the following listed in this critical care notation. Medical Decision Making - Medical Records Medical records reviewed: Yes: I reviewed the patient's medical records. - Doug Inquiry Pt receiving controlled substance: No Vital Signs: 03/16/21 18:43 Temperature 98.7 F Temperature Source Oral Pulse Rate [Radial] 78 Respiratory Rate 14 Blood Pressure [Right Arm] 169/96 H Blood Pressure Mean [Right Arm] 120 02 Sat by Pulse Oximetry 99 Oxygen Delivery Method Room Air - Lab Data Lab Results 03/16/21 18:55: WBC 8.0, RBC 4.99, Hgb 16.0, Hct 45.2, MCV 90.5, MCH 32.1 H, MCHC 35.5 H, RDW 13.7, Plt Count 166, MPV 7.8, Neut % (Auto) 60.4, Lymph % (Auto) 32.9, [place] % (Auto) 4.9, Eos % (Auto) 1.4, Baso % (Auto) 0.4, Neut # (Auto) 4.8, Lymph # (Auto) 2.6, [place] # (Auto) 0.4, Eos # (Auto) 0.1, Baso # (Auto) 0.0 03/16/21 18:55: Sodium 135 L, Potassium 3.9, Chloride 96 L, Carbon Dioxide 29, Anion Gap 13.9, BUN 8 L, Creatinine 0.70, Estimated Creat Clear 212, Estimated GFR 119, Est GFR ( Amer) 144, Glucose 285 H, Calcium 9.7, AST 38, ALT 35, Total Protein 8.2, Albumin 4.7, Globulin 3.5 H, Albumin/Globulin Ratio 1.3 Result diagrams: 03/16/21 18:55 03/16/21 18:55 Orders (Tests/Meds): ED MEDICATIONS Discontinued Medications Generic Name Dose Route Start Last Admin Trade Name Freq PRN Reason Stop Dose Admin Ketorolac Tromethamine 15 mg 03/16/21 19:32 03/16/21 19:39 Ketorolac 30mg/Ml Vial IV 03/16/21 19:33 15 mg ONCE ONE Administration ORDERS Category Date Time Status XR KUB Stat Exams 03/16/21 19:05 Taken Comprehensive Metabolic Panel Stat Lab 03/16/21 18:55 Results - Radiology Data #1 Image(s): Abdomen Image Reviewed: Yes I reviewed the patient's radiology image Preliminary Findings: Normal/NAD (Significant stool burden throughout the colon) Medical Decision Narrative: 51-year-old male with a history of chronic back issues who presents with complaints of left knee weakness and lower back pain lower abdominal fullness. Patient has significant constipation was seen here previously within the last week review of the CT demonstrates full colonic burden of stool. Patient has not had a significant bowel movement since then and KUB today confirms continued constipation. Patient has normal rectal tone no saddle anesthesia no motor weakness on exam ruling out cauda equina as a likely diagnosis and his story is not consistent with such an etiology. Patient is agreeable to enema however would like to do it at home. He will be given a cleanout regimen and his pain was significantly improved after Flexeril and Toradol therapy. He was discharged home in good condition with appropriate return precautions. Back Pain HPI - General Stated Complai
--- NOTE | 2021-03-16 19:05 | XR_ITS ---
PROCEDURE INFORMATION: Exam: XR Abdomen Exam date and time: 03/16/2021 7:05 PM Age: 51 years old Clinical indication: Condition or disease; Other: No bowel movements for 3 days. ; Additional info: Abdominal pain TECHNIQUE: Imaging protocol: XR of the abdomen. Views: Frontal supine view of the abdomen. 1 View. Total images: 2 COMPARISON: CT ABDOMEN PELVIS W CON 03/11/2021 2:29 PM FINDINGS: Tubes, catheters and devices: Spinal stimulator unit projecting over the lower lumbar region with leads extending into the posterior midline posterior soft tissues of the upper back and into the lower thoracic spinal canal, grossly unchanged from CT 03/11/2021. Lungs: The visualized lung bases are clear. Heart/Mediastinum: Heart size normal. Gastrointestinal tract: Nonobstructive bowel gas pattern. Small to moderate gas and stool in the mid and proximal colonic segments, decreased from CT 03/11/2021, without evidence of significant constipation. Nondilated small bowel loops. No evidence of pneumatosis or portal gas. Intraperitoneal space: No free air is evident. Organs: No evidence of organomegaly. Bones/joints: No acute osseous abnormalities. Mild degenerative lumbar spondylosis. Soft tissues: No gross soft tissue masses. Other findings: No pathological calcifications. IMPRESSION: 1. Small to moderate colonic gas and stool in the mid and proximal segments, with decreased stool burden since 03/11/2021. 2. Additional non-emergent findings detailed above.
[2021-03-16 19:30] LABS: Basophils % 0.4 % (0.1-2.0); Eosinophils # 0.1 K/mm3 (0.0-0.4); Eosinophils % 1.4 % (0.1-12.0); Hematocrit 45.2 % (42.0-52.0); Lymphocytes # 2.6 K/mm3 (0.7-4.5); Lymphocytes % 32.9 % (10-50); Mean Corpuscular HGB Conc 35.5 g/dL (31.8-35.4); Mean Corpuscular Hemoglobin 32.1 pg (27.0-31.2); Mean Corpuscular Volume 90.5 fl (80-94); Mean Platelet Volume 7.8 fl (7.4-10.4); Monocytes # 0.4 K/mm3 (0.1-1.0); Monocytes % 4.9 % (1.7-9.3); Neutrophils # 4.8 K/mm3 (1.8-7.8); Neutrophils % 60.4 % (37.0-80.0); Platelet Count 166 K/mm3 (142-424); Red Blood Count 4.99 M/mm3 (4.60-6.20); Red Cell Distribution Width 13.7 % (11.5-17.5)
[2021-03-16 19:48] LABS: Chloride 96 mmol/L (98-107); Potassium 3.9 mmoL/L (3.5-5.1); Sodium 135 mmol/L (136-145)
[2021-03-16 19:50] LABS: Blood Urea Nitrogen 8 mg/dl (9-20)
[2021-03-16 19:51] LABS: Alanine Aminotransferase 35 U/L (12-78); Albumin Level 4.7 g/dl (3.5-5.0); Albumin/Globulin Ratio 1.3 (1.1-1.8); Anion Gap 13.9 mEq/L (5-15); Aspartate Amino Transferase 38 U/L (17-59); Calcium 9.7 mg/dl (8.4-10.2); Carbon Dioxide 29 mmol/L (22.0-30.0); Creatinine Clearance Estimated 212 mL/min (50-200); Estimated Glomerular Filt Rate 119 ml/min (>60); GFR (African American) 144 ML/MIN (>60); Globulin 3.5 g/dL (1.3-3.2); Glucose 285 mg/dl (74-100); Total Protein,Serum 8.2 g/dl (6.3-8.2)
[2021-03-16 20:30] LABS: Alkaline Phosphatase 179 U/L (38-126); Bilirubin,Total 0.4 mg/dl (0.2-1.3)
[2021-03-16 21:06] VITALS: BP 142/70; PULSE 73; RESP 17; TEMP 36.7; O2SAT 98
== END 2021-03-16 21:10 | disposition home or self-care (01) ==
PROVIDERS: Emergency Provider Student in an Organized Health Care Education/Training Program; PCP Emergency Medicine
DX: K59.00 Constipation, unspecified (principal); M25.562 Pain in left knee; J44.9 Chronic obstructive pulmonary disease, unspecified; E11.9 Type 2 diabetes mellitus without complications; E78.5 Hyperlipidemia, unspecified; I10 Essential (primary) hypertension; F17.210 Nicotine dependence, cigarettes, uncomplicated; Z79.899 Other long term (current) drug therapy
CPT/HCPCS: 74018; 80053; 85025; 96375; 99282; 99283

== ENCOUNTER → 2021-07-03 14:05 | Outpatient (CLI) | payer OTHER, SELFPAY ==
[2021-07-03 14:43] LABS: Amphetamine/Metha Screen,Urine Negative ng/ml (<1000); Benzodiazepines Screen,Urine Negative ng/ml (<200)
[2021-07-03 14:44] LABS: Barbiturates Screen,Urine Negative ng/ml (<200)
[2021-07-03 14:46] LABS: Methadone Screen,Urine Positive ng/ml (<300)
[2021-07-03 14:47] LABS: Cannabinoid Screen,Urine Negative ng/ml (<50); Cocaine Screen,Urine Negative ng/ml (<300)
[2021-07-03 14:48] LABS: Opiate Screen,Urine Positive ng/ml (<300)
[2021-07-03 14:49] LABS: Phencyclidine Screen,Urine Negative ng/ml (<25)
[2021-07-03 15:10] LABS: Microalbumin/Creatinine Ratio 17.6
[2021-07-03 15:13] LABS: Creatinine,Urine Random 148 mg/dL (Not Estab.)
== END ==
PROVIDERS: Visit Provider Emergency Medicine
DX: E11.9 Type 2 diabetes mellitus without complications (principal); Z79.899 Other long term (current) drug therapy; Z79.4 Long term (current) use of insulin
CPT/HCPCS: 80305; 82043; 82570

== ENCOUNTER → 2021-09-25 14:26 | Outpatient (POV) | payer OTHER, SELFPAY ==
[2021-09-25 14:47] VITALS: BP 176/108; PULSE 100; RESP 18; O2SAT 100; BMI 32.3
--- NOTE | 2021-09-25 15:16 | HMH.PMCON ---
Assessment and Plan (1) Degenerative joint disease (DJD) of lumbar spine Status: Chronic Category: Medical Code(s): M47.816 - Spondylosis without myelopathy or radiculopathy, lumbar region (2) Lumbar radiculopathy Status: Chronic Category: Medical Code(s): M54.16 - Radiculopathy, lumbar region (3) Malfunction of spinal cord stimulator Status: Acute Category: Medical Code(s): T85.192A - Other mechanical complication of implanted electronic neurostimulator of spinal cord electrode (lead), initial encounter - Assessment and plan all Dx Assessment and Plan for all problems:: Patient's spinal cord stimulator is approximately 27 years old with nonrechargeable battery and 1-lead. [employer] was contacted regarding the device. Device was implanted by Dr. Moreno. We will schedule him for change of the device through [employer] spinal cord stimulator. We will also schedule patient for CT scan lumbar spine to determine if any changes from last imaging. Patient is not on any anticoagulation therapy and is not diabetic. Back in the clinic after change of device and to discuss CT scan. We will also order the patient Burton 5 mg 1 tablet p.o. twice daily as needed moderate pain until he is able to undergo change of device. Patient's pain is a 9 out of 10 at this time. ORT is minimal risk. Patient has signed and completed a pain management agreement/contract today. Risks and benefits of the procedure have been explained to the patient. Patient would like to proceed with the procedure. Risks and benefits of the medication have been explained in detail to the patient. The patient does understand the risk of dependence on the medication when given over a prolonged period. Patient has been advised of risks of oversedation with the prescribed medication. Narcan has been offered to the paitent in the event of oversedation. Patient has been advised that a family member should also be educated regarding administration of Narcan. The patient has been advised to consult with his/her primary care provider and pharmacist regarding drug-drug interaction of medications currently prescribed. Patient has been prescribed a controlled substance after being counseled on the medication, medication safety, and possible side effects. CHILO report has been obtained and reviewed prior to prescription and found to be appropriate. Opioid contract was reviewed and signed by the patient, and that they have agreed to all of the terms set forth by our compliance program. Patient has been instructed to contact the clinic with any concerns before the next appointment. Dr. Peacock has reviewed this note and agrees with this plan of care. This note was dictated using voice recognition software and make contain errors or omissions. HPI - Data of Consult Patient: new to practice Consult date: 09/25/21 Requesting Physician: Terri Alfaro APRN - Consult Narrative Reason for consult: left low back pain History of present illness: Mr. Kelley is a 51 year old male who presents today for consultation for left low back pain. The patient says that he began to develop severe left low back pain with radiation into left hip and left leg approximately 1 month ago. He does have a spinal cord stimulator?29[employer] that was implanted by Dr. Coreas right 27 years ago. The device has 1-lead. He says since presentation of left low back pain he has been having frequent falls. He rates his pain a 9 out of 10 today. He has not had any recent imaging. He says that the device does not seem to be working any longer. Pain is primarily over the device site today. He denies any changes in bowel or bladder habit. He is having numbness and tingling into his left leg and foot. History tried home stretching along with anti-inflammatories and physical therapy for greater than 6 weeks in the past. Patient would like to proceed with change of his device. CC: Meghana
== END ==
PROVIDERS: Visit Provider Clinical Nurse Specialist Family Health
DX: M47.896 Other spondylosis, lumbar region (principal); M54.16 Radiculopathy, lumbar region; T85.192A Other mechanical complication of implanted electronic neurostimulator of spinal cord electrode (lead), initial encounter
CPT/HCPCS: 99202; G0463

== ENCOUNTER → 2021-09-27 07:50 | Outpatient (CLI) | payer OTHER, SELFPAY ==
--- NOTE | 2021-09-27 07:56 | CT_ITS ---
FINAL REPORT CLINICAL HISTORY: BACk and leg pain pt has had pain pump put in 30 years ago and it has moved and now causing pt pain COMPARISON: 07/13/2020 FINDINGS: Axial imaging of the lumbar spine was obtained without contrast. Sagittal and coronal reformatted images were also obtained and reviewed.This study was performed with techniques to keep radiation doses as low as reasonably achievable (ALARA). Individualized dose reduction techniques using automated exposure control or adjustment of mA and/or kV according to the patient's size were employed. There is no fracture. The vertebral alignment is normal. There are moderate degenerative changes. Spinal catheter is again identified and enters at the L1-2 level. L1-2: An annular bulge and facet arthropathy are identified. There is no evidence of central canal stenosis or neural foraminal narrowing. L2-3: An annular bulge and facet arthropathy are identified. There is mild bilateral neural foraminal narrowing. L3-4: An annular bulge is present. Facet arthropathy and osteophytes are present. There is moderate bilateral neural foraminal narrowing. L4-5: An annular bulge is present. Facet arthropathy and osteophytes are present. Central and left paracentral partially calcified disc protrusion is again identified and indents the thecal sac. There is bilateral lateral recess stenosis and severe bilateral neural foraminal narrowing. There is mild central canal stenosis with an AP diameter of the thecal sac of 9 mm. L5-S1: An annular bulge is present. Facet arthropathy and osteophytes are present. There is moderate right and severe left neural foraminal narrowing. There are degenerative changes of the sacroiliac joints with partial fusion. IMPRESSION: Central left and left paracentral partially calcified disc protrusion at L4-5 results in bilateral lateral recess stenosis, severe bilateral neural foraminal narrowing, and mild central canal stenosis. Multilevel degenerative disc disease and spondylosis. Reviewed, Interpreted and Dictated by Tristan Powers III, MD Transcribed by Judy Mendoza Authenticated by Tristan Powers III, MD on 09/27/2021 09:56:36 AM [facility]
== END ==
PROVIDERS: PCP Emergency Medicine; Visit Provider Clinical Nurse Specialist Family Health
DX: M54.50 Low back pain, unspecified (principal); M79.605 Pain in left leg; M79.604 Pain in right leg
CPT/HCPCS: 72131

== ENCOUNTER → 2021-10-12 11:00 | Outpatient (POV) | payer OTHER, SELFPAY ==
[2021-10-12 11:20] VITALS: BP 174/84; PULSE 83; RESP 18; O2SAT 99; BMI 31.6
--- NOTE | 2021-10-12 12:18 | HMH.PAINSOAP ---
[facility] Pain Management SOAP Note Subjective:: Patient is a 51-year-old white male who presents today for follow-up. He was recently sent for imaging of his lumbar spine. Patient was referred to us for chronic left low back pain. Patient does say that the pain radiates into his left hip and left leg. The pain progressively worsened over the last month. He does have a [employer]onic spinal cord stimulator that is in place. He says it was implanted [address] Redding.. The device does have 1-lead. He says that the device has not been working for some time. He was referred for possible change out of device. Patient says after further consideration, he does not feel that a stimulator will give him significant relief. The device never gave him great relief since implant. He says that he is more interested in the intrathecal pump for long-term pain relief. He has had injective therapy in the past with minimal relief. He has had physical therapy for more than 6 weeks in the past along with home stretching. He has also tried anti-inflammatories and opiates with minimal relief. He is interested in proceeding with an intrathecal pain pump trial. Today, the patient rates his pain an 8 out of 10. Review of Systems General: No recent weight changes, no fever, no sleep disturbances Respiratory: No cough, no shortness of air, no recurring pulmonary infections Cardiovascular/peripheral vascular: No chest pain, no palpitations, no edema, no shortness of breath Gastrointestinal: No new onset incontinence, normal bowel movements reported Genitourinary: No new onset incontinence Musculoskeletal: Left low back pain with radiation into left hip and leg Psychiatric: [Normal mood/affect] Neurological: [Denies weakness in extremities], [denies balance issues] Objective:: Physical exam General: Alert and oriented x3, no acute distress, pleasant and cooperative Lungs: Respirations even and unlabored, symmetrical chest expansion Eyes: PERRL Musculoskeletal: Flexion and extension of lumbar [spine] somewhat guarded secondary to pain, [antalgic gait noted] Neurological: Speech clear, no gross sensory deficit Assessment:: Degenerative disc disease lumbar spine with lumbar radiculopathy symptoms, end of life spinal cord stimulator Plan:: We will schedule the patient for a psychological evaluation to determine if he is an appropriate candidate for intrathecal therapy. We will plan to see him back after the evaluation to discuss a further plan of care. He has been instructed to contact clinic if he has any concerns for his next appointment. Patient has been instructed to contact the clinic with any concerns before the next appointment. Dr. Peacock has reviewed this note and agrees with this plan of care. This note was dictated using voice recognition software and make contain errors or omissions. [facility] History I have reviewed the patient's past medical history: Yes Medical History: Reports:: Chronic Obstructive Pulmonary Disease (COPD), Depression, Diabetes Mellitus Type 2, Hyperlipidemia, Hypertension Denies:: Cancer, Diabetes Mellitus Type 1, Internal Pacemaker, MRSA, Seizures *Have you ever received a pneumonia vaccine?: No *Have you received a flu vaccine this season?: No Other Medical History: Denies: Blood Transfusion Reaction Laterality Cases: Left: Arthroscopy Knee, Arthroscopy Shoulder Other Surgeries: Yes: No Previous Surgery, Other. No: Pacemaker Amputation: No Fractures: No - *Social History Smoking Status: Current every day smoker Tobacco Type: cigarettes # Packs/Day (cigarettes): 1 Alcohol Intake: never Substance Use Type: denies use *Occupational Status:: unemployed Housing: house Household Members: spouse *Travel in the last 8 weeks: None - Psychiatric History Pschychiatric History:: Reports:: Depression Family Hx:: Cancer, Coronary Artery Disease, Diabetes, Heart Attack, Hypertension, Stroke
== END ==
PROVIDERS: Visit Provider Clinical Nurse Specialist Family Health
DX: M51.16 Intervertebral disc disorders with radiculopathy, lumbar region (principal)
CPT/HCPCS: 99212; G0463

== ENCOUNTER → 2021-11-24 15:04 | Outpatient (CLI) | payer OTHER, SELFPAY ==
[2021-11-24 14:26] LABS: Alanine Aminotransferase 26 U/L (12-78); Albumin Level 4.8 g/dl (3.5-5.0); Albumin/Globulin Ratio 1.5 (1.1-1.8); Alkaline Phosphatase 109 U/L (38-126); Anion Gap 13.8 mEq/L (5-15); Aspartate Amino Transferase 32 U/L (17-59); Bilirubin,Total 0.7 mg/dl (0.2-1.3); Blood Urea Nitrogen 11 mg/dl (9-20); Calcium 9.5 mg/dl (8.4-10.2); Carbon Dioxide 27 mmol/L (22.0-30.0); Chloride 100 mmol/L (98-107); Chol/HDL Ratio 4.5 (1-3.5); Cholesterol 147 mg/dl (140-200); Estimated Glomerular Filt Rate 119 ml/min (>60); GFR (African American) 144 ML/MIN (>60); Globulin 3.1 g/dL (1.3-3.2); Glucose 144 mg/dl (74-100); HDL Cholesterol 33 mg/dl (40-60); Potassium 3.8 mmoL/L (3.5-5.1); Sodium 137 mmol/L (136-145); Total Protein,Serum 7.9 g/dl (6.3-8.2); Triglycerides 142 mg/dl (30-150); VLDL Cholesterol 28 mg/dL (0-40)
[2021-11-24 14:37] LABS: Direct LDL Cholesterol 81.85 mg/dL (100-129)
[2021-11-24 14:42] LABS: 25-OH Vitamin D, Total 35.3 ng/mL (30-100)
[2021-11-24 14:43] LABS: T4 (Thyroxine) 13.7 ug/dl (5.53-11.0)
[2021-11-24 14:47] LABS: Basophils # 0.1 K/mm3 (0-0.2); Basophils % 0.8 % (0.1-2.0); Eosinophils # 0.1 K/mm3 (0.0-0.4); Eosinophils % 1.1 % (0.1-12.0); Hematocrit 46.4 % (42.0-52.0); Hemoglobin 15.7 g/dL (14.1-18.0); Lymphocytes # 3.8 K/mm3 (0.7-4.5); Lymphocytes % 45.9 % (10-50); Mean Corpuscular HGB Conc 33.8 g/dL (31.8-35.4); Mean Corpuscular Hemoglobin 30.9 pg (27.0-31.2); Mean Corpuscular Volume 91.7 fl (80-94); Mean Platelet Volume 8.8 fl (7.4-10.4); Monocytes # 0.4 K/mm3 (0.1-1.0); Monocytes % 4.9 % (1.7-9.3); Neutrophils % 47.3 % (37.0-80.0); Platelet Count 209 K/mm3 (142-424); Red Blood Count 5.07 M/mm3 (4.60-6.20); Red Cell Distribution Width 13.5 % (11.5-17.5); White Blood Count 8.4 K/mm3 (4.8-10.8)
[2021-11-24 14:57] LABS: Prostate Specific Ag Screen 0.3 ng/ml (0.0-4.0); Thyroid Stimulating Hormone 2.06 uIU/mL (0.465-4.68)
[2021-11-24 16:18] LABS: Hemoglobin A1C 6.9 % (4.0-6.0)
== END ==
PROVIDERS: Visit Provider Emergency Medicine
DX: I10 Essential (primary) hypertension (principal); E11.9 Type 2 diabetes mellitus without complications; E55.9 Vitamin D deficiency, unspecified; Z12.5 Encounter for screening for malignant neoplasm of prostate; Z79.4 Long term (current) use of insulin
CPT/HCPCS: 80053; 80061; 82306; 83036; 84436; 84443; 85025; G0103

== ENCOUNTER → 2023-05-06 15:21 | Outpatient (CLI) | payer OTHER, SELFPAY ==
[2023-05-06 13:29] LABS: Basophils % 0.4 % (0.1-2.0); Eosinophils # 0.1 K/mm3 (0.0-0.4); Eosinophils % 1.5 % (0.1-12.0); Hemoglobin 15.3 g/dL (14.1-18.0); Lymphocytes # 3.7 K/mm3 (0.7-4.5); Lymphocytes % 45.3 % (10-50); Mean Corpuscular Hemoglobin 31.5 pg (27.0-31.2); Mean Corpuscular Volume 92.5 fl (80-94); Mean Platelet Volume 8.5 fl (7.4-10.4); Monocytes # 0.5 K/mm3 (0.1-1.0); Monocytes % 5.7 % (1.7-9.3); Neutrophils # 3.8 K/mm3 (1.8-7.8); Neutrophils % 47.1 % (37.0-80.0); Platelet Count 143 K/mm3 (142-424); Red Blood Count 4.87 M/mm3 (4.60-6.20); Red Cell Distribution Width 13.1 % (11.5-17.5); White Blood Count 8.1 K/mm3 (4.8-10.8)
[2023-05-06 13:35] LABS: Alanine Aminotransferase 36 U/L (12-78); Albumin Level 4.3 g/dl (3.5-5.0); Albumin/Globulin Ratio 1.2 (1.1-1.8); Alkaline Phosphatase 197 U/L (38-126); Anion Gap 12.8 mEq/L (5-15); Aspartate Amino Transferase 52 U/L (17-59); Bilirubin,Total 0.5 mg/dl (0.2-1.3); Blood Urea Nitrogen 7 mg/dl (9-20); Calcium 9.9 mg/dl (8.4-10.2); Carbon Dioxide 31 mmol/L (22.0-30.0); Chloride 99 mmol/L (98-107); Chol/HDL Ratio 4.3 (1-3.5); Cholesterol 172 mg/dl (140-200); Estimated Glomerular Filt Rate 88 ml/min (>60); GFR (African American) 107 ML/MIN (>60); Globulin 3.5 g/dL (1.3-3.2); Glucose 190 mg/dl (74-100); HDL Cholesterol 40 mg/dl (40-60); Potassium 3.8 mmoL/L (3.5-5.1); Sodium 139 mmol/L (136-145); Total Protein,Serum 7.8 g/dl (6.3-8.2); Triglycerides 252 mg/dl (30-150); VLDL Cholesterol 50 mg/dL (0-40)
[2023-05-06 13:46] LABS: Direct LDL Cholesterol 85.51 mg/dL (100-129)
[2023-05-06 13:53] LABS: T4 (Thyroxine) 12.7 ug/dl (5.53-11.0)
[2023-05-06 14:06] LABS: Thyroid Stimulating Hormone 4.05 uIU/mL (0.465-4.68)
[2023-05-06 14:36] LABS: Hemoglobin A1C 8.3 % (4.0-6.0)
== END ==
PROVIDERS: PCP Emergency Medicine; Visit Provider Emergency Medicine
DX: E11.9 Type 2 diabetes mellitus without complications (principal); E66.9 Obesity, unspecified; Z68.33 Body mass index [BMI] 33.0-33.9, adult; Z79.4 Long term (current) use of insulin
CPT/HCPCS: 80053; 80061; 82306; 83036; 84436; 84443; 85025

== ENCOUNTER → 2023-08-28 07:42 | Outpatient (CLI) | payer OTHER, SELFPAY ==
[2023-08-28 21:01] LABS: Amphetamine/Metha Screen,Urine Negative ng/ml (<1000); Benzodiazepines Screen,Urine Negative ng/ml (<200)
[2023-08-28 21:02] LABS: Barbiturates Screen,Urine Negative ng/ml (<200)
[2023-08-28 21:03] LABS: Cannabinoid Screen,Urine Negative ng/ml (<50); Methadone Screen,Urine Positive ng/ml (<300)
[2023-08-28 21:04] LABS: Cocaine Screen,Urine Negative ng/ml (<300)
[2023-08-28 21:05] LABS: Opiate Screen,Urine Negative ng/ml (<300); Phencyclidine Screen,Urine Negative ng/ml (<25)
[2023-09-03 09:05] LABS: Methadone Positive (.); Methadone (GC/MS) 1208 ng/mL (Cutoff=100)
== END ==
PROVIDERS: PCP Family Medicine; Visit Provider Family Medicine
DX: Z79.899 Other long term (current) drug therapy (principal)
CPT/HCPCS: 80305; 80358

== ENCOUNTER 2023-10-16 07:38 | Outpatient (CLI) | payer OTHER, SELFPAY ==
--- NOTE | 2023-10-16 07:39 | CA_ITS ---
FINAL REPORT CLINICAL HISTORY: HTN,DM COMPARISON: None FINDINGS: RENAL ULTRASOUND: The right kidney measures 11.1 cm in length. No evidence of hydronephrosis or perinephric fluid is seen. The left kidney measures 11.8 cm in length. No evidence of hydronephrosis or perinephric fluid is seen. IMPRESSION: Unremarkable renal ultrasound. Reviewed, Interpreted and Dictated by Lauren Awad MD Transcribed by Ebony Guzman Authenticated and [facility]
--- NOTE | 2023-10-16 07:39 | CA_ITS ---
FINAL REPORT TECHNIQUE: Spectral and color Doppler exam CLINICAL HISTORY: Hypertension, diabetes mellitus. COMPARISON: None FINDINGS: DOPPLER RENAL VESSELS HISTORY: Hypertension . FINDINGS: Intrarenal resistive indices on the right are 0.59, normal . Intrarenal resistive indices on the left are 0.66, normal . Renal size is normal and symmetric. Right main renal artery systolic velocity: 207 cm/sec. Aortic-right renal artery flow velocity ratio: 2.14 COMMENT: Borderline elevated velocities suggest renal artery narrowing approaching 50%. Left main renal artery systolic velocity: 135 cm/sec. Aortic-left renal artery flow velocity ratio: 1.4 COMMENT: No evidence of hemodynamically significant renal artery stenosis . IMPRESSION: Renal artery narrowing on the right side approaching 50%, no evidence of hemodynamically significant stenosis in the left renal artery. CTA or gadolinium-enhanced MR may be considered as a more sensitive exam. Alternatively noncontrast MRI may be considered for assessing main renal arteries for stenosis as a more sensitive exam if the patient has renal insufficiency. Reviewed, Interpreted and Dictated by Lauren Awad MD Transcribed by Ebony Guzman Authenticated and [facility]
--- NOTE | 2023-10-16 07:39 | CA_ITS ---
FINAL REPORT CLINICAL HISTORY: HTN,DM COMPARISON: None FINDINGS: RENAL ULTRASOUND: The right kidney measures 11.1 cm in length. No evidence of hydronephrosis or perinephric fluid is seen. The left kidney measures 11.8 cm in length. No evidence of hydronephrosis or perinephric fluid is seen. IMPRESSION: Unremarkable renal ultrasound. Reviewed, Interpreted and Dictated by Lauren Awad MD Transcribed by Ebony Guzman Authenticated and [facility]
--- NOTE | 2023-10-16 08:10 | US_ITS ---
FINAL REPORT CLINICAL HISTORY: HTN,DM COMPARISON: None FINDINGS: RENAL ULTRASOUND: The right kidney measures 11.1 cm in length. No evidence of hydronephrosis or perinephric fluid is seen. The left kidney measures 11.8 cm in length. No evidence of hydronephrosis or perinephric fluid is seen. IMPRESSION: Unremarkable renal ultrasound. Reviewed, Interpreted and Dictated by Lauren Awad MD Transcribed by Ebony Guzman Authenticated and [facility]
== END 2023-10-16 23:59 ==
LOC: RT 07:39
PROVIDERS: PCP Family Medicine; Visit Provider Family Medicine
DX: I10 Essential (primary) hypertension (principal); E11.9 Type 2 diabetes mellitus without complications; Z79.4 Long term (current) use of insulin; Z79.84 Long term (current) use of oral hypoglycemic drugs; Z72.0 Tobacco use
CPT/HCPCS: 76770; 93976

== ENCOUNTER 2023-11-07 10:54 | Outpatient (CLI) | payer OTHER, SELFPAY ==
--- NOTE | 2023-11-07 10:58 | XR_ITS ---
FINAL REPORT CLINICAL HISTORY: right shoulder pain FINDINGS: LEFT SHOULDER 3 views of the left shoulder were obtained. There is no acute fracture. There is an orthopedic anchor in the distal clavicle. There are moderate hypertrophic changes of the acromioclavicular joint. There is an osteophyte seen along the undersurface of the acromion. There are mild hypertrophic changes of the glenohumeral joint. There is an exostosis arising from the proximal humeral diaphysis measuring 1 cm. IMPRESSION: Postoperative and degenerative changes with no acute bony abnormality. Exostosis arising from the proximal humeral diaphysis. Reviewed, Interpreted and Dictated by Manuel Hensley MD Transcribed by Yeni Ragland Authenticated and [facility]
== END 2023-11-07 23:59 ==
LOC: RAD 10:55
PROVIDERS: PCP Family Medicine; Visit Provider Orthopaedic Surgery
DX: M25.512 Pain in left shoulder (principal)
CPT/HCPCS: 73030

== ENCOUNTER 2023-11-12 13:33 | Outpatient (CLI) | payer OTHER, SELFPAY ==
--- NOTE | 2023-11-12 13:34 | CA_ITS ---
APPROVED REPORT EXAM: Comprehensive 2D, Doppler, and color-flow Echocardiogram Airplane Fueler: Odette Borjas CRT Ht: 6 ft 1 in Wt: 248lbs BSA: 2.36 BP: 154/88 mmHg Indications: COPD, Diabetes, Hypertension/HDD, Smoker 2D Dimensions LA Volume 56.10 mL LA Volume Index 23.30 mL/m2 (M/F) 16-34 M-Mode Dimensions RVDd 1.78 cm (0.9-2.6) LA Diam 3.24 cm (1.9-4.0) LVDd 5.43 cm (3.5-5.7) LVDs 3.30 cm (3.5-5.7) IVSd 0.91 cm (0.6-1.1) PWd 0.65 cm (0.6-1.1) EF (Teich) 69.20% FS 39.20% EDV (Teich) 143.10 mL TAPSE 2.02 (<1.7) ESV (Teich) 44.10 mL LV Diastology E Decel Time 60 (160-240 msec) E/A Ratio 0.60 MED A' 12.90 cm/s LAT A' 17.20 cm/s Aortic Valve AO Peak GR. 6.50 mmHg Mitral Valve MV A Velocity 121.0 (40-130 cm/s) E/A Ratio 0.60 Pulmonary Valve PV Peak Velocity 103.0 (50-150 cm/s) Tricuspid Valve TR P. Velocity 159.00 cm/s RAP Estimate 10.00 mmHg RVSP 20.10 mmHg Left Ventricle The left ventricle is normal size. The left ventricular systolic function is normal. The left ventricular ejection fraction is within the normal range. There is increased LV wall thickness. There is normal LV segmental wall motion. Transmitral Doppler flow pattern suggests impaired LV relaxation. LVEF is 60%. Right Ventricle The right ventricle is normal size. The right ventricular systolic function is normal. Atria The left atrium size is normal. The right atrium size is normal. There is no Doppler evidence of interatrial shunt. Aortic Valve The aortic valve opens well. There is no aortic valvular stenosis. No aortic regurgitation is present. Mitral Valve The mitral valve is normal in structure. No evidence of mitral valve stenosis. There is no mitral valve regurgitation noted. Tricuspid Valve The tricuspid valve leaflets are thin and pliable. Trace tricuspid regurgitation. There is insufficient TR jet to estimate RVSP. Pulmonic Valve The pulmonary valve is normal in structure. Trace pulmonic regurgitation. Great Vessels The aortic root is normal in size. The ascending aorta is not well visualized. IVC is normal in size and collapses >50% with inspiration. Pericardium There is no pericardial effusion. Conclusion Normal biventricular systolic function. No significant valvular stenosis or regurgitation. Electronically signed by : Adry Kenney MD 11/15/2023 15:04:49
== END 2023-11-12 23:59 ==
LOC: RT 13:34
PROVIDERS: PCP Internal Medicine; Visit Provider Family Medicine
DX: I10 Essential (primary) hypertension (principal); I20.89 Other forms of angina pectoris; I70.1 Atherosclerosis of renal artery; I73.9 Peripheral vascular disease, unspecified; E11.9 Type 2 diabetes mellitus without complications; Z79.4 Long term (current) use of insulin; Z79.84 Long term (current) use of oral hypoglycemic drugs; Z79.85 Long-term (current) use of injectable non-insulin antidiabetic drugs; F17.210 Nicotine dependence, cigarettes, uncomplicated
CPT/HCPCS: 93306

== ENCOUNTER 2023-11-19 13:08 | Outpatient (CLI) | payer OTHER, SELFPAY ==
--- NOTE | 2023-11-19 | CA_ITS ---
APPROVED REPORT Exam: Pharmacologic Technologist: Renee Reyna Ht: 6 ft 1 in Wt: 248 lbs BSA: 2.36 m2 HR: 73 bpm BP: 138/85 mmHg Medical History Medications: Amlodipine,,,,, Aspirin,,,,, Lovastatin,,,,, Gabapentin,,,,, SyMBICORT,,,,, Albuterol,,,,, LanTUS,,,,, Toprol XL,,,,, Zofran,,,,, MetoFORMIN,,,,, Lisinopril HCTZ,,,,, Ozempic,,,,, Stress Test Details Test: LEXISCAN HR Resting HR: 72 bpm Max Heart Rate (APMHR): 167 bpm Max HR Achieved: 89 bpm Target HR (85% APMHR): 142 bpm % of APMHR: 53 Recovery HR: 80 bpm BP Resting BP: 138.0/85.0 mmHg Max BP: 139.0/78.0 mmHg Recovery BP: 118.0/76.0 mmHg ECG Resting ECG: Sinus rhythm Stress ECG: No significant ST changes Arrhythmia: None Clinical Exercise duration: 04:07 min Highest Stage Achieved: Stress ECG Conclusion Symptoms: Dyspnea Arrhythmias/Ectopy: None ST-T Changes: No significant ST changes Conclusion: EKG portion unremarkable due to Lexiscan infusion. Myoview images reported separately. Test Summary REST 03:32 . . 72 . 138/ 85 . . Stage 1 . . . . . . . Myoview Injected Stage 1 01:00 . . 87 . . . . Stage 2 01:00 . . 86 . 129/ 75 . . Stage 3 01:00 . . 83 . 139/ 78 . . Stage 4 01:00 . . 80 . 129/ 81 . . Stage 4 01:07 . . 81 . 129/ 81 . Stop exercise at 04:07 RECOVERY 01:00 . . 82 . 119/ 82 . . RECOVERY 01:44 . . 80 . 119/ 82 . . Electronically signed by : Adry Kenney MD 11/22/2023 22:31:50
--- NOTE | 2023-11-19 13:12 | NM_ITS ---
APPROVED REPORT Exam: Nuclear Stress Test Indication: soa Patient Location: Outpatient Stress Tech: Renee Reyna NM Tech:Yessi IrwinMICHAELT, RT (R)(N) Ht: 6 ft 0 in Wt: 250 lbs HR: 72 bpm BP: 138/85 mmHg BSA: 2.34 m2 TID: 1.20 History: soa Procedure: Patient received 0.4 mg of intravenous Lexiscan, resting heart rate 72 bpm, resting blood pressure 138/85 mmHg, with Lexiscan maximum heart rate achieved was 89 bpm which is 85 % of the maximum predicted heart rate and blood pressure was 139/78 mmHg. With Lexiscan, patient denied any complaint of chest pain. Cardiac Stress and Resting SPECT Images: Cardiac Stress and Resting SPECT images were obtained using technetium 99m Myoview 31.9 mCi stress and 10.01 mCi at rest. Raw images demonstrate significant diaphragmatic overlap with the inferior border of the LV wall. Resting and stress imaging in supine positions demonstrate a medium sized, moderate, tapered fixed perfusion defect in the inferior LV wall. This is no longer visualized with prone stress imaging. Findings are suggestive of diaphragmatic attenuation. There is borderline increase in transient ischemic dilatation ratio (TID 1.20), suggestive of possible multivessel disease or balanced ischemia. Gated imaging demonstrates normal global and regional LV systolic function. LVEF is calculated at 63%. Conclusion: Diaphragmatic attenuation is present. There is borderline increase in transient ischemic dilatation ratio (TID 1.20), suggestive of possible multivessel disease or balanced ischemia. Gated imaging demonstrates normal global and regional LV systolic function. LVEF is calculated at 63%. Electronically signed by : Adry Kenney MD 11/22/2023 22:35:32
[2023-11-19] MEDS: ISOTOPE MYOVIEW (PER STUDY) 1 DOSE IV (14:42)
[2023-11-19] MEDS: REGADENOSON 0.4MG/5ML SYRINGE 0.400000000000000022 MG IV (14:42)
[2023-11-19] MEDS: SODIUM CHLORIDE 0.9% 10ML SYR (RAD ONLY) 10 ML IV ×2 (14:42)
== END 2023-11-19 23:59 ==
LOC: RAD 13:08 → RT 13:11
PROVIDERS: PCP Family Medicine; Visit Provider Family Medicine
DX: I20.89 Other forms of angina pectoris (principal); I10 Essential (primary) hypertension; I70.1 Atherosclerosis of renal artery; I73.9 Peripheral vascular disease, unspecified; E11.9 Type 2 diabetes mellitus without complications; M67.919 Unspecified disorder of synovium and tendon, unspecified shoulder; Z72.0 Tobacco use; Z79.4 Long term (current) use of insulin
CPT/HCPCS: 78452; 93017; 93018; A9502; J2785

== ENCOUNTER 2023-12-17 07:44 | Outpatient (CLI) | payer OTHER, SELFPAY ==
--- NOTE | 2023-12-17 07:46 | CT_ITS ---
FINAL REPORT TECHNIQUE: Pre-and postcontrast images of the abdomen were performed by computed tomography. Extensive 3-D reconstruction images were performed. A CTA was performed. This study was performed with techniques to keep radiation doses as low as reasonably achievable (ALARA). Individualized dose reduction techniques using automated exposure control or adjustment of mA and/or kV according to the patient''s size were employed. CLINICAL HISTORY: JANINE FINDINGS: ABDOMEN: There is mild atelectasis versus scar present in the lung bases. Precontrast images demonstrate no evidence of nephrolithiasis. No adrenal masses are identified. There is fatty infiltration of the liver, as well as a nodular contour of the liver, worrisome for underlying cirrhosis. Splenomegaly is present with a splenic length of 14.3 cm. The pancreas is unremarkable in appearance. There is a low-attenuation focus in the lateral aspect of the left kidney, favor a mildly complicated cyst. Postoperative changes are present in the anterior pelvic wall of a reservoir, and a stimulator is also present overlying the pelvis. The appendix is normal in appearance. CTA: The abdominal aorta is proper caliber. The SMA, celiac axis, and ALINA are patent. There is no significant stenosis or calcification. 2 right renal arteries are present, without evidence of renal artery stenosis in either the right or left renal arteries. IMPRESSION: 2 right renal arteries are present, with 1 on the left. No significant stenosis in either renal artery is seen. There is a 16 mm renal low-attenuation mass on the left side as described, favor a mildly complicated cyst. Would recommend a renal mass protocol CT to be performed in 3 to 6 months. Fatty liver with a nodular contour, worrisome for cirrhosis. Mild splenomegaly is present as well. Reviewed, Interpreted and Dictated by Tristan Powers III, MD Transcribed by Ebony Guzman Authenticated and . [facility]
[2023-12-17 08:13] LABS: Basophils % 0.4 % (0.1-2.0); Eosinophils # 0.1 K/mm3 (0.0-0.4); Eosinophils % 1.7 % (0.1-12.0); Hematocrit 41.6 % (42.0-52.0); Hemoglobin 13.7 g/dL (14.1-18.0); Lymphocytes # 2.9 K/mm3 (0.7-4.5); Lymphocytes % 50.8 % (10-50); Mean Corpuscular HGB Conc 32.9 g/dL (31.8-35.4); Mean Corpuscular Hemoglobin 32.2 pg (27.0-31.2); Mean Corpuscular Volume 97.9 fl (80-94); Mean Platelet Volume 7.6 fl (7.4-10.4); Monocytes # 0.3 K/mm3 (0.1-1.0); Monocytes % 5.4 % (1.7-9.3); Neutrophils # 2.4 K/mm3 (1.8-7.8); Neutrophils % 41.8 % (37.0-80.0); Platelet Count 117 K/mm3 (142-424); Red Blood Count 4.24 M/mm3 (4.60-6.20); Red Cell Distribution Width 13.5 % (11.5-17.5); White Blood Count 5.6 K/mm3 (4.8-10.8)
[2023-12-17 08:15] LABS: MANUAL DIFFERENTIAL MANUAL DIFFERENTIAL (MANUAL DIFF)
[2023-12-17 08:20] LABS: Chloride 98 mmol/L (98-107); Potassium 3.9 mmoL/L (3.5-5.1); Sodium 134 mmol/L (136-145)
[2023-12-17 08:22] LABS: Bilirubin,Unconjugated 0.2 mg/dL (0.0-1.1); Blood Urea Nitrogen 11 mg/dl (9-20); Estimated Glomerular Filt Rate 88 ml/min (>60); GFR (African American) 107 ML/MIN (>60)
[2023-12-17 08:23] LABS: Alanine Aminotransferase 35 U/L (12-78); Albumin Level 3.8 g/dl (3.5-5.0); Alkaline Phosphatase 203 U/L (38-126); Anion Gap 6.9 mEq/L (5-15); Aspartate Amino Transferase 42 U/L (17-59); Bilirubin,Direct 0.2 mg/dl (0.0-0.4); Bilirubin,Indirect 0.2 mg/dL (0.0-0.9); Bilirubin,Total 0.4 mg/dl (0.2-1.3); Calcium 9.3 mg/dl (8.4-10.2); Carbon Dioxide 33 mmol/L (22.0-30.0); Cholesterol 144 mg/dl (140-200); Glucose 337 mg/dl (74-100); Total Protein,Serum 6.8 g/dl (6.3-8.2); Triglycerides 266 mg/dl (30-150); VLDL Cholesterol 53 mg/dL (0-40)
[2023-12-17 08:24] LABS: Chol/HDL Ratio 4.4 (1-3.5); HDL Cholesterol 33 mg/dl (40-60); Magnesium 1.5 mg/dl (1.6-2.3)
[2023-12-17 08:37] LABS: Direct LDL Cholesterol 67.99 mg/dL (100-129)
[2023-12-17 08:48] LABS: Free T4 (Free Thyroxine) 1.37 ng/dl (0.78-2.19)
[2023-12-17] MEDS: 0.9 % SODIUM CHLORIDE 50 ML VIAL IV (08:48)
[2023-12-17] MEDS: SODIUM CHLORIDE 0.9% 10ML SYR (RAD ONLY) 10 ML IV (08:48)
[2023-12-17] MEDS: IOPAMIDOL-370 (76%);100ML BOTTLE 100 ML IV (08:48)
[2023-12-17 08:54] LABS: Thyroid Stimulating Hormone 2.37 uIU/mL (0.465-4.68)
[2023-12-17 09:29] LABS: Eosinophils % 3 % (0-3); Lymphocytes % 48 % (10-50); Monocytes % 7 % (2-9); Neutrophils % 41 % (42-76); Total Cells Counted 100
[2023-12-17 09:32] LABS: Platelet Estimate Normal; RBC Morphology Normal
== END 2023-12-17 23:59 ==
LOC: RAD 07:46
PROVIDERS: Nurse Practitioner Family; PCP Family Medicine; Visit Provider Family Medicine
DX: I70.1 Atherosclerosis of renal artery (principal); R93.1 Abnormal findings on diagnostic imaging of heart and coronary circulation; R94.31 Abnormal electrocardiogram [ECG] [EKG]; R06.00 Dyspnea, unspecified; R07.9 Chest pain, unspecified; I73.9 Peripheral vascular disease, unspecified; I10 Essential (primary) hypertension; E11.42 Type 2 diabetes mellitus with diabetic polyneuropathy; Z79.4 Long term (current) use of insulin; Z79.84 Long term (current) use of oral hypoglycemic drugs; Z79.85 Long-term (current) use of injectable non-insulin antidiabetic drugs; F17.210 Nicotine dependence, cigarettes, uncomplicated
CPT/HCPCS: 36415; 74175; 80048; 80061; 80076; 83735; 84439; 84443; 85007; 85025; Q9967

== ENCOUNTER 2023-12-19 20:36 | Outpatient (CLI) | payer OTHER, SELFPAY ==
[2023-12-19 17:58] LABS: Basophils # 0.1 K/mm3 (0-0.2); Basophils % 1.1 % (0.1-2.0); Eosinophils # 0.1 K/mm3 (0.0-0.4); Eosinophils % 1.8 % (0.1-12.0); Hematocrit 46.2 % (42.0-52.0); Hemoglobin 15.1 g/dL (14.1-18.0); Lymphocytes # 2.6 K/mm3 (0.7-4.5); Lymphocytes % 37.8 % (10-50); Mean Corpuscular HGB Conc 32.8 g/dL (31.8-35.4); Mean Corpuscular Hemoglobin 31.9 pg (27.0-31.2); Mean Corpuscular Volume 97.4 fl (80-94); Mean Platelet Volume 9.4 fl (7.4-10.4); Monocytes # 0.5 K/mm3 (0.1-1.0); Monocytes % 7.3 % (1.7-9.3); Neutrophils # 3.6 K/mm3 (1.8-7.8); Platelet Count 138 K/mm3 (142-424); Red Blood Count 4.74 M/mm3 (4.60-6.20); Red Cell Distribution Width 13.4 % (11.5-17.5); White Blood Count 6.9 K/mm3 (4.8-10.8)
[2023-12-19 18:49] LABS: 25-OH Vitamin D, Total 34.6 ng/mL (30-100)
[2023-12-19 19:02] LABS: Prostate Specific Ag Screen 0.2 ng/ml (0.0-4.0)
[2023-12-19 19:21] LABS: Vitamin B12 316 pg/mL (239-931)
[2023-12-19 19:41] LABS: Hemoglobin A1C 10.9 % (4.0-6.0)
[2023-12-19 19:43] LABS: Iron 130 ug/dL (49-181)
[2023-12-19 19:53] LABS: Total Iron Binding Capacity 395 ug/dL (261-462)
[2023-12-19 20:21] LABS: Ferritin 123 ng/ml (17.9-464)
== END 2023-12-19 23:59 ==
LOC: LAB.DROPOF 20:36
PROVIDERS: PCP Internal Medicine; Visit Provider Internal Medicine
DX: I73.9 Peripheral vascular disease, unspecified (principal); E55.9 Vitamin D deficiency, unspecified; Z79.899 Other long term (current) drug therapy; E11.9 Type 2 diabetes mellitus without complications
CPT/HCPCS: 82043; 82306; 82607; 82728; 83036; 83540; 83550; 85025; G0103

== ENCOUNTER 2024-01-09 08:32 | Outpatient (CLI) | payer OTHER, SELFPAY ==
--- NOTE | 2024-01-09 08:33 | CT_ITS ---
FINAL REPORT TECHNIQUE: Axial images were obtained from the lung base to the iliac crest by computed tomography before and after the administration of contrast. This study was performed with techniques to keep radiation doses as low as reasonably achievable (ALARA). Individualized dose reduction techniques using automated exposure control or adjustment of mA and/or kV according to the patient's size were employed. CLINICAL HISTORY: cirrhosis COMPARISON: None FINDINGS: Pre infusion images demonstrate no evidence of stones. On the post infusion images there is moderate diffuse fatty infiltration of the liver. The liver has a nodular peripheral margin consistent with known history of cirrhosis. The spleen is enlarged measuring up to 14 cm. The pancreas is unremarkable. There is a right adrenal nodule measuring approximately 2 cm in diameter and 8 Hounsfield units on the pre infusion images, consistent with an adenoma. There is a benign-appearing cyst in the left kidney measuring 1.5 cm. There are minimal retroperitoneal lymph nodes which are more numerous than typical, measuring up to 14 mm in greatest dimension, and nonspecific. There is a large amount of stool throughout the colon. There is a spinal stimulator device partially visualized superior to the left gluteal region. IMPRESSION: Cirrhosis. Splenomegaly. Nonspecific 2 cm right adrenal nodule consistent with an adenoma. Nonspecific mild retroperitoneal adenopathy. Reviewed, Interpreted and Dictated by Manuel Hensley MD Transcribed by Philly Kingston Authenticated and [facility]
[2024-01-09] MEDS: IOPAMIDOL-370 (76%);100ML BOTTLE 75 ML IV (09:54)
[2024-01-09] MEDS: SODIUM CHLORIDE 0.9% 10ML SYR (RAD ONLY) 10 ML IV (09:54)
== END 2024-01-09 23:59 | disposition home or self-care (01) ==
LOC: RAD 08:33
PROVIDERS: PCP Internal Medicine; Visit Provider Internal Medicine
DX: K74.60 Unspecified cirrhosis of liver (principal); K76.0 Fatty (change of) liver, not elsewhere classified
CPT/HCPCS: 74170; Q9967

== ENCOUNTER 2024-01-13 09:27 | Outpatient (CLI) | payer OTHER, SELFPAY ==
--- NOTE | 2024-01-13 09:30 | CT_ITS ---
APPROVED REPORT [employer] Registrar: CLINICAL INDICATION Chest Pain TECHNIQUE Image Acquisition: A 128 slice MDCT scanner (Planwisea View) was used for data acquisition. A noncontrast coronary calcium scan was performed. A CT attenuation threshold of 130 Hounsfield units (HU) was used for the detection of calcium in contiguous voxels of 1 sq mm in area to be counted as individual lesions. Bolus tracking in the ascending aorta with a threshold of 180 HU was performed. Immediately afterwards, ECG synchronized cardiac CT was then performed from the cardiac base to apex using retrospective gating with ECG tube current modulation. A total of 85 mL of Isovue 370 mg/mL contrast medium was administered at 5 mL/sec followed by a saline flush using a biphasic injection protocol. A tube voltage of 120 KVp was used. The patient received the following medications prior to the cardiac CT. 125 mg of oral metoprolol 15 mg of oral ivabradine 0.8 mg of sublingual nitroglycerin The average heart rate at the time of acquisition was 61 bpm and regular. Image Reconstruction Transaxial images were reconstructed at 0.67 mm slide thickness. Data was reviewed interactively on an advanced workstation capable of 2 and 3-dimensional displays in all conventional reconstruction formats, including multiplanar reformations, maximum intensity projections, curved multiplanar reformations, and volume rendered reconstructions. When applicable, selected routine images describing the relevant coronary anatomy and pathology were saved and sent to PACS. Complications None Technical Quality Overall image quality was good. Coronary artery opacification was adequate. Total DLP (Dose-Length Product) is 1444.1 mGy-cm. The reported value represents the total of one or more individual components during the CT acquisition of this date and at this time, and as such, the same value may appear in more than one CT report depending on the interpreting/reporting physicians. COMPARISON None FINDINGS CT Coronary Calcium Scoring LMA (Left Main Artery) = 34 LAD (Left Anterior Descending) = 338 LCX (Left Coronary Circumflex) = 74 RCA (Right Coronary Artery) = 554 Total Calcium Score = 1000 using the AJ-130 method. The observed calcium score of 1000 is at 99th percentile for subjects of the same age, sex, and race/ethnicity. The interpretation of the calcium heart score is based on the following continuum*: 0 = no calcified plaque detected (risk of coronary artery disease is very low ??? less than 5%) 1-10 = calcium detected in extremely minimal levels (risk of coronary diseases is still low ??? less than 10%) 11-100 = mild levels of plaque detected with certainty (mild or minimal narrowing of heart arteries is likely) 101-400 = definite,at least moderate levels of plaque detected (relatively high risk of a heart attack within 3-5 years) >401-999 = extensive levels of plaque detected (high risk of heart attack, high levels of vascular disease are present, high likelihood of at least one significant coronary narrowing) *The calcium heart score quantifies the burden of coronary calcification/plaque in the coronary arteries. The calcium heart score is not able to evaluate the presence or burden of non-calcified (i.e. soft) plaque. There is also calcification noted in the aortic root. Coronary CT Angiography The coronary arterial system is right dominant. Quantitative Stenosis Grading: Left Main (LM): The left main originates normally from the left sinus of Valsalva. The LM bifurcates into the left anterior descending artery and left circumflex artery. There is calcification noted in the distal LM, with no evidence of luminal stenosis. Left Anterior Descending (LAD) and Diagonal Branches: The LAD gives off 2 diagonal branch(es). There is mixed calcified/noncalcified plaque in the proximal and mid LAD and involving the first diagonal branch, with up to 70-90% luminal stenosis. There is no evidence of LAD-myocardial bridge. Left Circumflex (LCX) and Obtuse Marginals (OM): The LCX gives off 2 Obtuse Marginal (OM) branch(es). There is calcification in the proximal LCx, with no evidence of luminal stenosis. Right Coronary Artery (RCA): The RCA originates normally from the right sinus of Valsalva. The RCA gives off a posterior descending artery (PDA) and posterolateral (PL) branches. There is mixed calcified/noncalcified plaque noted along the proximal, mid, and distal RCA with up to 25-49% luminal stenosis. Non-Coronary Cardiac Findings: Analysis of the left ventricular (LV) structure and function was performed after 3-D reconstruction of the LV from axial images, with user-corrected automatic contouring for assessment of LV volumes and user-defined reconstruction from oblique planes for measurement of 3-D cardiac structure and function. -The left ventricle systolic function is normal. -There is no left atrial appendage filling defect. Two right pulmonary veins and two left pulmonary veins drain normally into the left atrium. -No pericardial thickening or calcification. -Central and branch pulmonary arteries in the [id number] are unremarkable. -Thoracic aorta within the visualized thoracic aortic-branches in the [id number] is unremarkable. Extracardiac Structures No significant extra-cardiac findings. Note, however, that this study is focused on the cardiac findings. IMPRESSION -Presence of coronary calcification with an Agatston score = 1000 using the AJ-130 method. -The observed calcium score of 1000 is at 99th percentile for subjects of the same age, sex, and race/ethnicity. -Possible significant flow-limiting atherosclerosis of the mid LAD segment. -CAD-RADS 4A. Management recommendations per ACC/AHA guidelines*, as clinically appropriate. *Recommendations: CAD RADS 0: Reassurance. Consider non-atherosclerotic causes of chest pain. CAD RADS 1: Consider non-atherosclerotic causes of chest pain. Consider preventive therapy and risk factor modification. CAD RADS 2: Consider non-atherosclerotic causes of chest pain. Consider preventive therapy and risk factor modification, particularly for patients with nonobstructive plaque in multiple segments. CAD RADS 3: Consider further functional testing. Consider symptom-guided anti-ischemic and preventive pharmacotherapy as well as risk factor modification per published guideline statements. CAD RADS 4A: Consider further functional testing or invasive coronary angiography with revascularization per published guideline statements. Consider symptom-guided anti-ischemic and preventive pharmacotherapy as well as risk factor modification per published guideline statements. CAD RADS 4B: Invasive coronary angiography recommended with revascularization per published guideline statements. Consider symptom-guided anti-ischemic and preventive pharmacotherapy as well as risk factor modification per published guideline statements. CAD RADS 5: Consider invasive angiography and/or viability assessment with revascularization per published guideline statements. Consider symptom-guided anti-ischemic and preventive pharmacotherapy as well as risk factor modification per published guideline statements. CRITICAL RESULT None COMMUNICATION Per this written report The coronary and cardiac findings of this CCTA were reviewed, reported, and signed by Cuate Kenney MD (Aircraft Instrument Mechanic) Conclusion Electronically signed by : Adry Kenney MD 01/20/2024 16:09:52
[2024-01-13 09:53] VITALS: BMI 31.6
[2024-01-13 10:06] VITALS: BP 122/82; PULSE 77; RESP 18; TEMP 36.4; O2SAT 96; BMI 32.5
[2024-01-13] MEDS: METOPROLOL TARTRATE 50MG TABLET PO ×2 (10:10→11:02)
[2024-01-13] MEDS: IVABRADINE HCL 7.5MG TABLET PO (10:10)
[2024-01-13] MEDS: METOPROLOL TARTRATE 25MG TABLET 25 MG (10:10)
[2024-01-13 10:20] LABS: POC Glucose,Bedside 146 (70-110)
[2024-01-13 11:25] VITALS: BP 123/74; PULSE 64; RESP 16; O2SAT 97
[2024-01-13] MEDS: NITROGLYCERIN 0.4MG SL TABLET SL (11:25)
[2024-01-13 11:30] VITALS: BP 118/59; PULSE 64; RESP 16; O2SAT 95
[2024-01-13 11:33] VITALS: BP 104/57; PULSE 62; RESP 16; O2SAT 96
[2024-01-13 11:36] VITALS: BP 109/63; PULSE 63; RESP 16; O2SAT 96
[2024-01-13 11:46] VITALS: BP 124/83; PULSE 65; RESP 16; O2SAT 96
[2024-01-13] MEDS: IOPAMIDOL-370 (76%);100ML BOTTLE 85 ML IV (12:14)
[2024-01-13] MEDS: SODIUM CHLORIDE 0.9% 10ML SYR (RAD ONLY) 10 ML IV (12:14)
[2024-01-13] MEDS: 0.9 % SODIUM CHLORIDE 50 ML VIAL IV (12:14)
== END 2024-01-13 11:55 | disposition home or self-care (01) ==
PROVIDERS: PCP Internal Medicine; Visit Provider Nurse Practitioner Family
DX: R07.9 Chest pain, unspecified (principal); R06.00 Dyspnea, unspecified; R93.1 Abnormal findings on diagnostic imaging of heart and coronary circulation; R94.31 Abnormal electrocardiogram [ECG] [EKG]; I70.1 Atherosclerosis of renal artery; I73.9 Peripheral vascular disease, unspecified; Z72.0 Tobacco use; I10 Essential (primary) hypertension
CPT/HCPCS: 75571; 75574; 82962; Q9967

== ENCOUNTER 2024-06-05 09:33 | Outpatient (CLI) | payer OTHER, SELFPAY ==
[2024-06-05 18:52] LABS: Creatinine,Urine Random 205 mg/dL (Not Estab.)
[2024-06-05 18:56] LABS: Microalbumin/Creatinine Ratio 10.2
== END 2024-06-05 23:59 | disposition home or self-care (01) ==
LOC: LAB.DROPOF 06-08 09:33
PROVIDERS: PCP Family Medicine; Visit Provider Family Medicine
DX: R73.03 Prediabetes (principal)
CPT/HCPCS: 82043; 82570

== ENCOUNTER 2024-11-30 09:45 | Outpatient (CLI) | payer OTHER, SELFPAY ==
[2024-11-30 19:21] LABS: Basophils % 0.4 % (0.1-2.0); Eosinophils # 0.1 K/mm3 (0.0-0.4); Eosinophils % 0.9 % (0.1-12.0); Hematocrit 44.7 % (42.0-52.0); Hemoglobin 15.3 g/dL (14.1-18.0); Lymphocytes # 2.5 K/mm3 (0.7-4.5); Lymphocytes % 37.2 % (10-50); Mean Corpuscular HGB Conc 34.2 g/dL (31.8-35.4); Mean Corpuscular Hemoglobin 29.8 pg (27.0-31.2); Mean Platelet Volume 10.6 fl (7.4-10.4); Monocytes # 0.3 K/mm3 (0.1-1.0); Monocytes % 3.8 % (1.7-9.3); Neutrophils # 3.9 K/mm3 (1.8-7.8); Neutrophils % 57.6 % (37.0-80.0); Platelet Count 122 K/mm3 (142-424); Red Blood Count 5.14 M/mm3 (4.60-6.20); Red Cell Distribution Width 13.8 % (11.5-17.5); White Blood Count 6.8 K/mm3 (4.8-10.8)
[2024-11-30 20:16] LABS: Albumin Level 4.5 g/dl (3.5-5.0); Chloride 99 mmol/L (98-107); Potassium 3.5 mmoL/L (3.5-5.1); Sodium 135 mmol/L (136-145)
[2024-11-30 20:18] LABS: Blood Urea Nitrogen 10 mg/dl (9-20); Estimated Glomerular Filt Rate 101 ml/min (>60); GFR (African American) 122 ML/MIN (>60)
[2024-11-30 20:19] LABS: Alanine Aminotransferase 29 U/L (12-78); Albumin/Globulin Ratio 1.4 (1.1-1.8); Alkaline Phosphatase 168 U/L (38-126); Anion Gap 13.5 mEq/L (5-15); Aspartate Amino Transferase 35 U/L (17-59); Bilirubin,Total 0.6 mg/dl (0.2-1.3); Calcium 9.6 mg/dl (8.4-10.2); Carbon Dioxide 26 mmol/L (22.0-30.0); Chol/HDL Ratio 4.7 (1-3.5); Cholesterol 155 mg/dl (140-200); Globulin 3.2 g/dL (1.3-3.2); Glucose 205 mg/dl (74-100); HDL Cholesterol 33 mg/dl (40-60); Total Protein,Serum 7.7 g/dl (6.3-8.2); Triglycerides 273 mg/dl (30-150); VLDL Cholesterol 55 mg/dL (0-40)
[2024-11-30 20:30] LABS: Direct LDL Cholesterol 71.59 mg/dL (100-129)
[2024-11-30 20:40] LABS: 25-OH Vitamin D, Total 33.4 ng/mL (30-100)
[2024-11-30 20:51] LABS: Thyroid Stimulating Hormone 0.43 uIU/mL (0.465-4.68)
[2024-11-30 21:31] LABS: Hemoglobin A1C 8.3 % (4.0-6.0)
== END 2024-11-30 23:59 | disposition home or self-care (01) ==
LOC: LAB.DROPOF 12-01 15:15
PROVIDERS: PCP Family Medicine; Visit Provider Family Medicine
DX: E55.9 Vitamin D deficiency, unspecified (principal); E11.42 Type 2 diabetes mellitus with diabetic polyneuropathy; Z79.4 Long term (current) use of insulin; I10 Essential (primary) hypertension
CPT/HCPCS: 80053; 80061; 82306; 83036; 84443; 85025

== ENCOUNTER 2025-05-24 11:47 | Outpatient (CLI) | payer OTHER, SELFPAY ==
[2025-05-24 17:02] LABS: Hemoglobin A1C 10.0 % (4.0-6.0)
[2025-05-24 18:22] LABS: Alanine Aminotransferase 29 U/L (12-78); Albumin Level 4.6 g/dl (3.5-5.0); Albumin/Globulin Ratio 1.4 (1.1-1.8); Alkaline Phosphatase 155 U/L (38-126); Anion Gap 16.9 mEq/L (5-15); Aspartate Amino Transferase 40 U/L (17-59); Bilirubin,Total 1.1 mg/dl (0.2-1.3); Blood Urea Nitrogen 11 mg/dl (9-20); Calcium 9.8 mg/dl (8.4-10.2); Carbon Dioxide 29 mmol/L (22.0-30.0); Chloride 94 mmol/L (98-107); Creatinine,Serum 1.00 mg/dl (0.66-1.25); Estimated Glomerular Filt Rate 78 ml/min (>60); GFR (African American) 94 ML/MIN (>60); Globulin 3.4 g/dL (1.3-3.2); Glucose 185 mg/dl (74-100); Potassium 3.9 mmoL/L (3.5-5.1); Sodium 136 mmol/L (136-145); Total Protein,Serum 8.0 g/dl (6.3-8.2)
[2025-05-24 18:40] LABS: Free Thyroxine Index 3.7 ug/dL (5.93-13.13); T4 (Thyroxine) 13.3 ug/dl (5.53-11.0); Triiodothryronine (T3) Uptake 28 % (23.5-40.5)
[2025-05-24 18:42] LABS: Free T4 (Free Thyroxine) 1.62 ng/dl (0.78-2.19)
[2025-05-24 20:13] LABS: Thyroid Stimulating Hormone 1.90 uIU/mL (0.465-4.68)
--- OUTSIDE RECORDS SUMMARY | 2025-05-25 09:34 | XMS_ITS | Clinical Summary ---
[facility] Address [address] [place] [address] Care Team Providers Care Roll Reclaimer Name Role Phone J Carlos Hi MD Primary Care Provider [phone] Allergies No known active allergies Medications Continuous Glucose Sensor (Dexcom G7 Sensor) misc Use. Active empagliflozin (JARDIANCE) 10 MG tablet tabletIndication s:Type 2 Diabetes Mellitus Take 1 tablet by mouth Daily. Indications: Type 2 Diabetes Active lisinopril-hydro chlorothiazide (PRINZIDE,ZESTOR ETIC) 20-25 MG per tabletIndication s:Hypertension Take 2 tablets by mouth Daily. Indications: High Blood Pressure Active metFORMIN (GLUCOPHAGE) 1000 MG tabletIndication s:Type 2 Diabetes Mellitus Take 1 tablet by mouth 2 (Two) Times a Day With Meals. Indications: Type 2 Diabetes Active insulin NPH-insulin regular (humuLIN 70/30,novoLIN 70/30) (70-30) 100 UNIT/ML injectionIndicat ions:Type 2 Diabetes Mellitus Inject 70 Units under the skin into the appropriate area as directed 2 (Two) Times a Day With Meals. Indications: Type 2 Diabetes Active metoprolol succinate XL (TOPROL-XL) 100 MG 24 hr tabletIndication s:Hypertension Take 1 tablet by mouth Daily. Indications: High Blood Pressure Active gabapentin (NEURONTIN) 800 MG tabletIndication s:Diabetic Neuropathy,Neuro pathic Pain Take 1 tablet by mouth 3 (Three) Times a Day. Indications: Diabetes with Nerve Disease, Neuropathic Pain Active lovastatin (MEVACOR) 10 MG tabletIndication s:Hyperlipidemia Take 1 tablet by mouth Every Night. Indications: High Amount of Fats in the Blood Active Cholecalciferol (Vitamin D3) 50 MCG (2000 UT) tabletIndication s:Vitamin D Deficiency Take 1 tablet by mouth Daily. Indications: Vitamin D Deficiency Active nicotine (NICODERM CQ) 14 MG/24HR patchIndications :Nicotine Dependence Place 1 patch on the skin as directed by provider Daily. 28 each 1 08/20/2024 1:07 PM EST 4 Active saccharomyces boulardii (FLORASTOR) 250 MG capsuleIndicatio ns:Change in Bowel Habits Take 1 capsule by mouth 2 (Two) Times a Day. 60 capsule 1 4 Active cefTRIAXone 2,000 mg in sodium chloride 0.9 % 100 mL IVPBIndications: Bone and/or Joint Infection Infuse 2,000 mg into a venous catheter Daily. Indications: Bone and/or Joint Infection 4 Active budesonide-formo terol (SYMBICORT) 160-4.5 MCG/ACT inhalerIndicatio ns:Chronic Obstructive Pulmonary Disease Inhale 2 puffs 2 (Two) Times a Day. Indications: Chronic Obstructive Lung Disease 4 Active albuterol (PROAIR RESPICLICK) 108 (90 Base) MCG/ACT inhalerIndicatio ns:Acute Exacerbation of COPD (Inactive) Inhale 2 puffs Every 4 (Four) Hours As Needed for Shortness of Air. Indications: ACUTE EXACERBATION OF COPD (INACTIVE) 4 Active naloxone (NARCAN) 4 MG/0.1ML nasal sprayIndications :Opioid Overdose Call 911. Don't prime. Bittinger in 1 nostril for overdose. Repeat in 2-3 minutes in other nostril if no or minimal breathing/respon siveness. Indications: Opioid Overdose 2 each 4 Active Active Problems Problem Noted Date Diagnosed Date Leg pain 08/27/2024 Tobacco use 08/26/2024 Essential hypertension 08/26/2024 COPD (chronic obstructive pulmonary disease) 07/2024 Chronic back pain 08/26/2024 Post-operative complication 08/26/2024 Sepsis 08/14/2024 Diabetic ulcer of toe of lef t foot associated with type 2 diabetes mellitus 08/14/2024 Family History Medical History Relation Name Comments Cancer Father Relation Name Status Comments Father Social History Tobacco Use Types Packs/Day Years Used Date Smoking Tobacco: Every Day Cigarettes 0.5 26.7 Started: 1998 Smokeless Tobacco: Never Tobacco Cessation:Ready to Q uit: No; Counseling Given: Not Answered Alcohol Use Standard Drinks/Week Comments Never 0 (1 standard drink = 0.6 oz pur e alcohol) OASIS D0700: Social Isolation Answer Da te Recorded Frequency of experiencing loneliness or isolatio n Never 10/15/2024 OASIS A1250: Transportation Answer Date Recorded Lack of Transportation (Medical) No 10/15/2024 Lack of Transportation (Non-Medical) No 10/15/2024 Patient Unable or Declines to Respond No 10/15/2024 OASIS B1300: Health Literacy Answer Markos e Recorded Frequency of needing help to read materials from doctor or pharmacy Never 10/15/2024 [facility] Utilities Answer Date Recorded In the past 12 months has th e [employer], gas, oil, or water [employer] threatened to shut off services in your home? Yes 08/17/2024 AUDIT-C Answer Date Recorded Q1: How often do you have a drink containing alcohol? Never 08/26/2024 Q2: How many drinks containi ng alcohol do you have on a typical day when you are drinking? Patient does not drink Q3: How often do you have si x or more drinks on one occasion? Never 08/26/2024 Overall Financial Resource Strain (CARDIA) Answe r Date Recorded How hard is it for you to pa y for the very basics like food, housing, medical care, and heating? Hard 08/17/2024 [facility] - Occupational Stress Questionnaire Answer Date Recorded Do you feel stress - tense, restless, nervous, or anxious, or unable to sleep at night because your mind is troubled all the time - these days? Very much 08/17/2024 Exercise Vital Sign Answer Date Recorde d On average, how many days pe r week do you engage in moderate to strenuous exercise (like a brisk walk)? 0 days 08/17/2024 On average, how many minutes do you engage in exercise at this level? 0 min 08/17/2024 Hunger Vital Sign Answer Date Recorded Within the past 12 months, y ou worried that your food would run out before you got the money to buy more. Often true Within the past 12 months, t he food you bought just didn't last and you didn't have money to get more. Sometimes true 10/2023 PRAPARE - Transportation Answer Date Re corded In the past 12 months, has l ack of transportation kept you from medical appointments or from getting medications? Yes 10/2023 In the past 12 months, has l ack of transportation kept you from meetings, work, or from getting things needed for daily living? Yes 08/17/2024 Abuse Screen Answer Date Recorded Feels Unsafe at Home or Work/School no 02/08/2025 Feels Threatened by Someone no 01/15 Does Anyone Try to Keep You From Having Contact with Others or Doing Things Outside Your Home? no 02/08/2025 Physical Signs of Abuse Present no 02/08/2025 Housing Stability Answer Date Recorded Current Living Arrangements home 08/16 Potentially Unsafe Housing Conditions none 08/27/2024 Family and Community Support Answer Markos e Recorded If for any reason you need h elp with day-to-day activities such as bathing, preparing meals, shopping, managing finances, etc., do you get the help you need? I could use a little more help 08/17/2024 How often do you feel lonely or isolated from those around you? Sometimes 08/17/2024 Employment Answer Date Recorded Do you want help finding or keeping work or a job? Yes, help finding work 08/17/2024 Disabilities Answer Date Recorded Difficulty Concentrating, Remembering or Making Decisions no 08/26/2024 Difficulty Managing Errands Independently no 08/26/2024 Education Answer Date Recorded Do you want help with school or training? For example, starting or completing job training or getting a high school diploma, GED or equivalent No 08/27/2024 Preferred Language Iraqi 08/27/2024 PHQ-2 Answer Date Recorded Patient Health Questionnaire-2 Score 6 08/17/2024 Sex and Gender Information Value Date Recorded Sex Assigned at Not on file Legal Sex Male 10:24 AM EDT Gender Identity Not on file Sexual Orientation Not on file Last Filed Vital Signs Vital Sign Reading Time Taken Comments Blood Pressure 113/91 02/08/2025 9:30 PM EDT Pulse 66 02/08/2025 9:30 PM EDT Temperature 36.8 C (98.3 F) 02/08/2025 8:53 PM EDT Respiratory Rate 18 02/08/2025 8:53 PM EDT Oxygen Saturation 98% 02/08/2025 9:30 PM EDT Inhaled Oxygen Concentration - - Weight 113 kg (250 lb) 02/08/2025 8:53 PM EDT Height 185.4 cm (6' 1 ) 02/08/2025 8:53 PM EDT Body Mass Index 32.98 02/08/2025 8:53 PM EDT Plan of Treatment Health Maintenance Due Date Last Done Comments ANNUAL PHYSICAL 1970 HEPATITIS C SCREENING 1970 DIABETIC EYE EXAM 02/10/1980 DIABETIC FOOT EXAM 02/10/1980 URINE MICROALBUMIN-CREATININ E RATIO (uACR) 02/10/1980 Hepatitis B (1 of 3 - 19+ 3- dose series) 1989 Pneumococcal Vaccine 50+ (1 of 2 - PCV) 1989 COLON CANCER SCREENING 5 YEA R SIGMOIDOSCOPY [address] COLONOGRAPHY 2015 FECAL OCCULT BLOOD TEST 2015 FIT Testing (1 year) 2015 TDAP/TD VACCINES (2 - Tdap) 09/16/2019 09/16/2009 ZOSTER VACCINE (1 of 2) 02/10/2020 COLOGUARD 08/30/2024 08/30/2021 COLORECTAL CANCER SCREENING 08/30/2024 HEMOGLOBIN A1C 02/11/2025 08/14/2024, 08/17, 09/06/2023, Additional history exists COVID-19 Vaccine (1 - 2023-2 5 season) 2025 INFLUENZA VACCINE 06/16/2025 Medical Devices Implanted Type Area Small Order Cutter Device Identifier Shelf Expiration Date Model / Serial / Lot Erectile Dysfunction Implant [employer] Procedures Procedure Name Priority Date/Time Associated Diagnosis Comments HEMOGLOBIN A1C Add-On 08/14/2024 9:37 PM EST from Last 3 Months or Most Recently Relevant to Health Maintenance Results * (ABNORMAL) Hemoglobin A1c (08/14/2024 9:37 PM EST) Hemoglobin A1C 8.70(H) 4.80 - 5.60 % 08/15/2024 2:05 AM EST [facility] Blood Venipuncture / Unknown 08/14/2024 9:37 PM EST 08/14/2024 9:44 PM EST Narrative [facility] - 08/15/2024 2:05 AM EST Hemoglobin A1C Ranges: Increased Risk for Diabetes 5.7% to 6.4% Diabetes >= 6.5% Diabetic Goal < 7.0% Bahman Romo MD LAB BLOOD ORDERABLES Final Re sult [facility]
[address] [place] [address], from Last 3 Months or Most Recently Relevant to Health [place] [address] [address] [facility] Advance Directives * CPR (Attempt to Resuscitate) (Latest Code Status on File) Date Activated Date Inactivated Comments 08/24/2024 7:20 PM 08/26/2024 6:17 PM No physicia n signature needed for this code status. Dangelo as Signed. * CPR (Attempt to Resuscitate) Date Activated Date Inactivated Comments 08/15/2024 1:10 AM 08/20/2024 7:17 PM Question Answer Comments Code Status (Patient has no pulse and is not breathing): CPR (Attempt to Resuscitate) Medical Interventions (Patie nt has pulse or is breathing): Full Support Care Teams Roll Reclaimer Relationship Specialty Start Date End Date J Carlos Hi MD [address] [place] [address] PCP - General Family Medicine 08/17/24
--- OUTSIDE RECORDS SUMMARY | 2025-05-25 09:34 | XMS_ITS | Clinical Summary ---
Author Organization [facility] Address [address] [facility] [address] [place] [address] Phone Care Team Providers Care Bobtailer Name Role Phone Mita Long Unavailable Unavailable Conditions or Problems Problem Name Problem Code Onset Date Status Entry Date Provider Comment Standard Description Annotate Acquired absence of right great toe Z89.411 (ICD-10-CM ) 11/04 Active 11/04 Analia Benjamin Acquired absence of right great toe Skin tissue necrosis 13373786 (SNOMED CT) 11/04 Active 11/04 Analia Benjamin Skin necrosis Nausea and vomiting 02726081 (SNOMED CT) 11/04 Active 11/04 Analia Benjamin Nausea and vomiting MSSA infection 594005936 (SNOMED CT) 10/24 Active 10/24 Analia Benjamin Infection by methicillin sensitive Staphylococcus aureus DM chronic ulcer of left foot, plantar surface, 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.621) L97.522 (ICD-10-CM ) 10/24 Active 10/24 Analia Benjamin Non-pressure chronic ulcer of other part of left foot with fat layer exposed Cellulitis, foot, left 603393717 (SNOMED CT) 10/24 Active 10/24 Analia Benjamin Cellulitis of foot Hypokalemia 80296120 (SNOMED CT) 10/24 Active 10/24 Analia Benjamin Hypokalemia Obesity, class 1, BMI 30 to <35 E66.811 (ICD-10-CM ) 10/24 Active 10/24 Analia Benjamin Obesity, class 1 Nicotine dependence, cigarettes F17.210 (ICD-10-CM ) 10/24 Active 10/24 Analia Alexander Nicotine dependence, cigarettes, uncomplicated COPD 73977185 (SNOMED CT) 10/24 Active 10/24 Analia Alexander Chronic obstructive pulmonary disease DM II with diabetic polyneuropathy E11.42 (ICD-10-CM ) 10/24 Active 10/24 Analia Alexander Type 2 diabetes mellitus with diabetic polyneuropathy Benign Essential Hypertension 22143009 (SNOMED CT) 10/24 Active 10/24 Analia Alexander Benign hypertension Medications Medication Instructions Start Date Stop Date Generic Name NDC Provider CEFUROXIME AXETIL 500 MG TABS 1 tablet by mouth twice a day 10/26 cefuroxime axetil 27930688172 Anthony Polanco METHADONE HCL 5 MG TABS Take 1 tablet by mouth every eight hours 10/26 methadone 37827883483 Anthony Polanco ceftriaxone jocelin lindsay Rocephin 2G IV [id number] 09/22 ceftriaxone jocelin Cordova RN CEFUROXIME AXETIL 500 MG TABS 1 tablet by mouth twice a day 10/26 cefuroxime axetil 11521210976 Denys Elizabeth MD METFORMIN HCL 1000 MG TABS Take 1 tablet by mouth twice a day metformin 93442674056 Yg Joao insulin NPH-insulin regular (humuLIN 70/30,novoLIN 70/30) (7 Inject 70 unit subcutaneously twice a day as directed humuLIN 70/30,novoLIN 70/30 Yg Joao DEXCOM G7 SENSOR Use blood-gl ucose sensor 44021176582 Yg Joao METRONIDAZOLE 500 MG TABS Take 1 tablet by mouth every twelve hours 11/03 metronidazole 21456859887 Yg Joao LOVASTATIN 10 MG TABS Take 1 tablet by mouth every night lovastatin 71520804306 Yg Joao LISINOPRIL-HYDRO CHLOROTHIAZIDE 20-25 MG TABS Take 2 tablet by mouth once a day lisinopril-hydroc hlorothiazide 32998170616 [facility] VITAMIN D3 50 MCG (1999) TABS Take 1 tablet by mouth once a day cholecalciferol (vitamin d3) 06240130785 [facility] SACCHAROMYCES BOULARDII 250 MG CAPS Take 1 capsule by mouth twice a day saccharomyces boulardii 41574926623 [facility] METHADONE HCL 5 MG TABS Take 1 tablet by mouth every eight hours 10/26 methadone 12200783366 [facility] GABAPENTIN 800 MG TABS Take 1 tablet by mouth three times a day gabapentin 86491719793 [facility] empagliflozin (JARDIANCE) 10 MG tablet tablet Take 1 tablet by mouth once a day JARDIANCE [facility] NICOTINE 14 MG/24HR PT24 Place 1 patch to skin once a day as directed nicotine 24972537061 [facility] METOPROLOL SUCCINATE ER 100 MG [id number] Take 1 tablet by mouth once a day metoprolol succinate 43563474321 [facility] SACCHAROMYCES BOULARDII 250 MG CAPS Take 1 capsule by mouth 2 (Two) Times a Day. 11/02 saccharomyces boulardii 27406344527 [facility] OXYCODONE HCL 10 MG TABS Take 1 tablet by mouth Every 4 (Four) Hours As Needed for Moderate Pain for up to 3 days. 10/23 oxycodone 19948361997 [facility] NICOTINE 14 MG/24HR PT24 Place 1 patch on the skin as directed by provider Daily. 11/02 nicotine 15272894662 [facility] METRONIDAZOLE 500 MG TABS Take 1 tablet by mouth Every 12 (Twelve) Hours for 14 days. 11/03 metronidazole 28669616567 [facility] METOPROLOL SUCCINATE ER 100 MG [id number] Take 1 tablet by mouth Daily. 11/02 metoprolol succinate 96556720030 [facility] METHADONE HCL 5 MG TABS Take 1 tablet by mouth Every 8 (Eight) Hours. 11/02 methadone 84570942377 [facility] METFORMIN HCL 1000 MG TABS Take 1 tablet by mouth 2 (Two) Times a Day With Meals. 11/02 metformin 71285713569 [facility] LOVASTATIN 10 MG TABS Take 1 tablet by mouth Every Night. 11/02 lovastatin 33306021978 [facility] LISINOPRIL-HYDRO CHLOROTHIAZIDE 20-25 MG TABS Take 2 tablets by mouth Daily. 11/02 lisinopril-hydroc hlorothiazide 69002410540 [facility] insulin NPH-insulin regular (humuLIN 70/30,novoLIN 70/30) (7 Inject 70 Units under the skin into the appropriate area as directed 2 (Two) Times a Day With Meals. 11/02 humuLIN 70/30,novoLIN 70/30 [facility] GABAPENTIN 800 MG TABS Take 1 tablet by mouth 3 (Three) Times a Day. 11/02 gabapentin 72491511140 [facility] empagliflozin (JARDIANCE) 10 MG tablet tablet Take 1 tablet by mouth Daily. 11/02 JARDIANCE [facility] DEXCOM G7 SENSOR Use. 11/02 blood-glucose sensor 12232247190 [facility] VITAMIN D3 50 MCG (2000 UT) TABS Take 1 tablet by mouth Daily. 11/02 cholecalciferol (vitamin d3) 32104164898 [facility] ceftriaxone jocelin lindsay Rocephin 2G IV [id number] 09/22 ceftriaxone jocelin Cordova RN Medications Administered No information available. Allergies, Adverse Reactions, Alerts No information available. Results Date Name Value Unit Range Flag Description Clinical Lists Update: Prelo ad VAPE_USE Never Tobacco smok ing status Chart Maintenance MAGNESIUM 1.5 mg/dL Magnesium [Moles/volume] in Serum or Plasma Office Visit: Office Visit:r m 12 SEXUAL ACTIV yes Have you ever had vaginal intercourse [PhenX] ORALTOBACUSE Never Tobacco smoking status SMOK STATUS Current every day smoker Tobacco smoking status MEDS REVIEW Done Documenta tion of current medications (procedure) Lab Report: CBC WITH AUTO DI FFERENTIAL [id number]-GE-[id number] 0.0 /100 WBC 0.0-0.2 GE use only - for [employer] import when terms are not otherwise specified IMMATUREGRAN 0.02 10*3/MM3 0.00-0.05 Immature granulocytes [#/volume] in Blood BASO# 0.02 10*3/mm3 0.00-0.20 Basophils [#/vol ume] in Blood EOS ABSLT 0.06 10*3/uL 0.00-0.40 Eosinophi ls [#/volume] in Blood MONOSCT AUTO 0.42 10*3/uL 0.10-0.90 Monocy aditya [#/volume] in Blood by Automated count LYMPHCT AUTO 2.36 10*3/mm3 0.70-3.10 Lymph ocytes [#/volume] in Blood by Automated count ABS NEUTROPH 4.61 10*3/uL 1.70-7.00 Neutro phils [#/volume] in Blood IMM GRANU % 0.3 % 0.0-0.5 Immature granulocytes/100 leukocytes in Blood % EOS AUTO 0.8 % 0.3-6.2 Eosinophil s/100 leukocytes in Blood by Automated count MONOCYTE % 5.6 % 5.0-12.0 Monocytes /100 leukocytes in Blood by Automated count LYMPHOCY BF 31.5 % 19.6-45.3 lymphoc ytes as percent of body fluid leukocytes NEUTROP BF 61.5 % 42.7-76.0 Neutroph ils/100 leukocytes in Body fluid PLATELETS 130 10*3/mm3 140-450 L Platelets [#/volume] in Blood by Automated count RDW_ 13.2 12.3-15.4 RDW, no uni ts MCHC 34.5 G/DL 31.5-35.7 MCHC [Mass/ volume] by Automated count MCH 29.4 pg 26.6-33.0 MCH [Entiti c mass] by Automated count MCV 85.1 fL 79.0-97.0 MCV [Entiti c volume] by Automated count HCT 43.5 % 37.5-51.0 Hematocrit [Volume Fraction] of Blood by Automated count HGB 15.0 g/dL 13.0-17.7 Hemoglobin [Mass/volume] in Blood RBC 5.11 10*6/mm3 4.14-5.80 Erythrocyt es [#/volume] in Blood by Automated count WBC 7.49 10*3/mm3 3.40-10.8 0 Leukocytes [#/volume] in Blood by Automated count Lab Report: SEDIMENTATION RA TE ESR 48 mm/h 0-20 H Erythrocyte sedimentation rate by Westergren method Lab Report: C-REACTIVE PROTE IN CRP <0.30 mg/dL 0.00-0.50 C reactive protein [Mass/volume] in Serum or Plasma Lab Report: COMPREHENSIVE ME TABOLIC PANEL ANIONGAP 9.0 mmol/L 5.0-15.0 anion gap, serum BUN/CREAT 13.5 7.0-25.0 Urea nitrogen/Creatinine [Mass Ratio] in Serum or Plasma BILI TOTAL 0.3 mg/dL 0.0-1.2 Bilirubin. total [Mass/volume] in Serum or Plasma ALK PHOS 214 U/L 39-117 H Alkaline cat sphatase [Enzymatic activity/volume] in Blood SGOT (AST) 30 U/L 1-40 Aspartate aminotransferase [Enzymatic activity/volume] in Serum or Plasma SGPT (ALT) 25 U/L 1-41 Alanine aminotransferase [Enzymatic activity/volume] in Serum or Plasma ALBUMIN 4.1 g/dL 3.5-5.2 Albumin [Mass/volume] in Serum or Plasma PROTEIN, TOT 8.0 g/dL 6.0-8.5 Protein [Mass/volume] in Serum or Plasma CALCIUM 9.9 mg/dL 8.6-10.5 Calcium [Moles/volume] in Serum or Plasma CO2 31.0 mmol/L 22.0-29.0 H Carbon diox donald, total [Moles/volume] in Venous blood CHLORIDE 93 mmol/L 98-107 L Chloride [Moles/volume] in Serum or Plasma POTASSIUM 4.2 mmol/L 3.5-5.2 Potassium [Moles/volume] in Serum or Plasma SODIUM 133 mmol/L 136-145 L Sodium [Moles/volume] in Serum or Plasma CREATININE 0.89 mg/dL 0.76-1.27 Creatini ne [Mass/volume] in Serum or Plasma BUN 12 mg/dL 6-20 Urea nitrogen [Mass/volume] in Serum or Plasma GLUCOSE SER 259 mg/dL 65-99 H Glucose [Mass/volume] in Serum or Plasma Plan of Care Type Date Detail Pending order STAT Labs Pending order STAT Labs Pending order Continue IV anti biotics Procedures Code Procedure Name Date Entry Date CPT-ca Continue IV antibiotics 2023 Vital Signs Date Name Value Unit Description BMI (Body Mass Index) 33.69 kg/m2 Bod y Mass Index (Ratio) Body Temperature 98.6 [degF] temperat ure E&M BP Diastolic 86 mm[Hg] blood pressu re, diastolic BP Systolic 148 mm[Hg] blood pressur e, systolic Heart Rate 99 /min pulse rate Height 71 [in_us] height E&M Respiratory Rate 16 /min respirat ory rate E&M Weight Measured 241.6 [lb_av] weight E& M Weight Measured 241.6 [lb_av] weight E& M Immunizations No information available. Advance Directives Directive Description Start Date NO ADVANCED DIRECTIVES AT THIS TIME 2023
--- OUTSIDE RECORDS SUMMARY | 2025-05-25 09:34 | XMS_ITS | Encounter Summary ---
Author Organization [facility] Address [address] [place] [address] Care Team Providers Care Quality Systems Manager Name Role Phone Eugene Richards MD Primary Care Provider [phone] Tesfaye Calvillo MD Unavailable [phone] Tiffany Pressley Primary Care Provider [phone] Reason for Referral * Consultation (Routine) - Closed Specialty Diagnoses / Procedures Referred By Cristiano gonzalez Referred To Contact Orthopaedic Surgery Diagnoses Rotator cuff tear arthropathy, left Geoffrey Hickman DO [address] [place] [address] Phone: tel: fax: Andres Segura MD [address] [facility] [address] [place] [address] Phone: tel: fax: Referral ID Status Reason Start Date Expiration Date V isits Requested Visits Authorized [id number] Closed Specialty Services Required 11/08/2023 05/09/2025 1 1 Encounter Details Date Type Department Care Team (Late st Contact Info) Description 11/08/2023 Community [facility] [address] [place] [address] Geoffrey Hickman DO [address] [place] [address] Rotator cuff tear arthropathy, left (Primary Dx) Social History Tobacco Use Types Packs/Day Years Used Date Smoking Tobacco: Every Day Cigarettes 0.5 32.7 Started: 1992 Smokeless Tobacco: Never Alcohol Use Standard Drinks/Week Comments No 0 (1 standard drink = 0.6 oz pure alcohol) Alcoholic Drinks/day: Never Drank Alcohol PHQ-2 Answer Date Recorded Patient Health Questionnaire-2 Score 0 11/11/2023 PHQ-9 Answer Date Recorded Patient Health Questionnaire-9 Score 20 06/17/2023 PHQ-2A Answer Date Recorded Patient Health Questionnaire-2 Score 3 06/17/2023 Sex and Gender Information Value Date Recorded Sex Assigned at Not on file Legal Sex Male 6:10 PM EDT Gender Identity Not on file Sexual Orientation Not on file documented as of this encounter Functional Status * Over the past 2 weeks, how often have you been bothered by any of the following problems? Question Answer Date of Assessment Author Little interest or pleasure in doing things Not at all 11/11/2023 3:08 PM Emma Riojas RN Feeling down, depressed, or hopeless Not at all 11/11/2023 3:08 PM Emma Riojas RN Patient Health Questionnaire -2 Score 0 11/11/2023 3:08 PM Emma Riojas RN documented as of this encounter Plan of Treatment Scheduled Referrals Name Type Priority Associated Diagnoses Order Schedule Ambulatory referral to General Orthopaedics Outpatient Referral Routine Rotator cuff tear arthropathy, left Expected: 11/08/2023 (Approximate), Expires: 11/08/2024 documented as of this encounter Visit Diagnoses Diagnosis Rotator cuff tear arthropathy, left- Primary documented in this encounter Additional Health Concerns Assessment Noted Time PHQ-9 Depression Total Score: 20 023 8:57 AM EDT A fall risk assessment has been complete d for the patient 06/17/2023 8:57 AM EDT A Body Mass Index follow-up plan has been documented for the patient 06/17/2023 10:59 AM EDT documented as of this encounter Care Teams Quality Systems Manager Relationship Specialty Start Date End Date Eugene Richards MD [address] [place] [address] PCP - General 01/27/21 12/03/23 Tiffany Pressley PA [address] [place], [place] [id number] PCP - General 12/04/23 Tesfaye Calvillo MD [address] [facility] [address] [place] [address] Consulting Physician Urology 11/11/23 documented as of this encounter
--- OUTSIDE RECORDS SUMMARY | 2025-05-25 09:34 | XMS_ITS | Clinical Summary ---
Author Organization [facility] Address [address] [place] [address] Care Team Providers Care Coal Trimmer Name Role Phone Tesfaye Calvillo MD Unavailable [phone] Tiffany Pressley Primary Care Provider [phone] Allergies Active Allergy Reactions Criticality Noted Date Comments Gabapentin Other - please docum ent in the comment field Medium 07/12/2023 Stuttering, Muscle Twitch, loss of Muscle control Pregabalin Other - please docum ent in the comment field Low 01/17/2023 GI Upset, N/V Medications ondansetron (Zofran) 4 MG tablet Take by mouth every 12 (twelve) hours if needed. 3 Active metoprolol tartrate (Lopressor) 100 MG tablet Take by mouth every night. 3 Active metFORMIN (Glucophage) 1000 MG tablet Take by mouth 2 (two) times a day with meals. 3 Active lovastatin (Mevacor) 10 MG tablet Take by mouth every night. 3 Active lisinopril 20 MG tablet Take by mouth 1 (one) time each day. 3 Active HumuLIN 70/30 (70-30) 100 UNIT/ML injection vial Inject 0.75 mL (75 Units) under the skin 2 (two) times a day before meals. 3 Active hydroCHLOROthia zide (HYDRODiuril) 25 MG tablet Take by mouth 1 (one) time each day. 3 Active OneTouch Ultra test strip 3 Active Fluticasone Furoate-Vilante rol (Breo Ellipta) 100-25 MCG/ACT aerosol powder Inhale 2 (two) times a day. 7 Active GNP Vitamin D Maximum Strength 50 MCG (2000 UT) tablet Take by mouth 1 (one) time each day. 3 Active Symbicort 80-4.5 MCG/ACT inhaler 3 Active buPROPion SR (Wellbutrin SR) 150 MG 12 hr tablet Take by mouth 2 (two) times a day. 3 Active Aspirin Low Dose 81 MG EC tablet Take by mouth 1 (one) time each day. 3 Active amLODIPine (Norvasc) 10 MG tablet Take by mouth 1 (one) time each day. 3 Active Insulin Glargine Solostar 100 UNIT/ML solution pen-injector Inject 20 Units under the skin every night. Active oxyCODONE (Roxicodone) 5 MG immediate release tablet Take 1 tablet (5 mg) by mouth every 6 (six) hours if needed for severe pain. 8 tablet 4 Active Additional Information Patient not taking.Reported on 11/11/2023 albuterol 0.63 MG/3ML nebulizer solution 4 Active B-D UF III MINI PEN NEEDLES 31G X 5 MM misc 3 Active lisinopril-hydr oCHLOROthiazide 20-25 MG tablet 4 Active metoprolol succinate XL (Toprol-XL) 100 MG 24 hr tablet 4 Active Ozempic, 0.25 or 0.5 MG/DOSE, 2 MG/3ML solution pen-injector 4 Active Active Problems Problem Noted Date Diagnosed Date ED (erectile dysfunction) 06/17/2023 Immunizations Immunization Administration Dates Next Due TD (adult), 2 Lf tetanus tox oid, preservative free, adsorbed 09/16/2009 Family History Medical History Relation Name Comments Cancer Father Hypertension Father Kidney disease Father Stroke Other Relation Name Status Comments Father Other Social History Tobacco Use Types Packs/Day Years Used Date Smoking Tobacco: Every Day Cigarettes 0.5 32.7 Started: 1992 Smokeless Tobacco: Never Tobacco Cessation:Ready to Q uit: Not Asked; Counseling Given: Not Answered Alcohol Use Standard Drinks/Week Comments No 0 [...] Sign Reading Time Taken Comments Blood Pressure 167/95 12/04/2023 10:50 AM EDT Pulse 108 12/04/2023 10:50 AM EDT Temperature 36.8 C (98.2 F) 12/04/2023 10:50 AM EDT Respiratory Rate 15 09/25/2023 12:00 PM EST Oxygen Saturation 96% 12/04/2023 10:50 AM EDT Inhaled Oxygen Concentration - - Weight 113 kg (250 lb) 12/04/2023 10:50 AM EDT Height 182.9 cm (6') 12/04/2023 10:50 AM EDT Body Mass Index 33.91 12/04/2023 10:50 AM EDT Plan of Treatment Health Maintenance Due Date Last Done Comments [facility]-HIV Screening 1970 [facility]-Infant/Child/Adol SDOH Screenings 1970 [facility]- SDOH Screenings 02/10/1988 [facility]-Adult SDOH Screenings 02/10/1988 [facility]-Hepatitis B Vaccines (1 of 3 - 19+ 3-dose series) 1989 [facility]-DTaP,Tdap,and Td Vaccine s (1 - Tdap) 09/17/2009 09/16/2009 CT Colonography 2015 Colonoscopy 2015 FIT-DNA 2015 FIT 2015 FOBT 2015 Sigmoidoscopy 2015 [facility]-Colorectal Cancer Screening 2015 [facility]-Pneumococcal Vaccine: 50 + Years (1 of 1 - PCV) 02/10/2020 [facility]-Zoster Vaccines (1 of 2) 02/10/2020 [facility]-Depression Screening 11/11/2024 024, 06/17/2023 ZID-IUZAA-60 Vaccine ( season) 2025 [facility]-Influenza Vaccine (#1) 2025 [facility]-Hepatitis C Screening Completed 2018, 02/23/2019 [facility]-Diabetes: Hemoglobin A1C Discontinued , 07/12/2023, 03/30/2019 [facility]-Obesity Intervention Completed , 06/17/2023 HPV Vaccines Aged Out No longer eligi ble based on patient's age to complete this topic [facility]-HIB Vaccines Aged Out No longer e ligible based on patient's age to complete this topic [facility]-Hepatitis A Vaccines Aged Out No longer eligible based on patient's age to complete this topic [facility]-IPV Vaccines Aged Out No longer e ligible based on patient's age to complete this topic [facility]-Rotavirus Vaccines Aged Out No lo nger eligible based on patient's age to complete this topic Medical Devices Implanted Type Area Dietitian Chief Device Identifier Shelf Expiration Date Model / Serial / Lot Retractor Male Sling - [id number] Implanted:Qty : 1 on 09/25/2023 by Tesfaye Calvillo MD at [facility] Implant N/A: Penis [employer]-[id number] 05/27/2028 [id number] / / [id number] Kit Ams 700 Accessory - [id number] Implanted:Qty : 1 on 09/25/2023 by Tesfaye Calvillo MD at [facility] Implant N/A: Penis [employer]-351 744 05/29/2028 [id number] / / [id number] Conceal Iz - [id number] Implanted:Qty : 1 on 09/25/2023 by Tesfaye Calvillo MD at [facility] Implant N/A: Penis [employer]-351 [id number] 06/18/2025 [id number] / / [id number] Cx Preconnect Ms 21cm Ps Iz - [id number] Implanted:Qty : 1 on 09/25/2023 by Tesfaye Calvillo MD at [facility] Implant N/A: Penis [employer]-351 744 07/31/2025 [id number] / / [id number] Prosthesis Penile Nitrocellulose Maker Rte Snapcone - [id number] Implanted:Qty : 1 on 09/25/2023 by Tesfaye Calvillo MD at [facility] Implant N/A: Penis Xochitl (So-Shee) [employer]-351 [id number] 08/31/2028 [id number] / / [id number] Spinal Cord Stimulator Spinal Cord Stimulator Right: Back Procedures Procedure Name Priority Date/Time Associated Diagnosis Comments HEMOGLOBIN A1C Routine 09/06/2023 12:18 PM EST Male erectile dysfunction, unspecified HEPATITIS C ANTIBODY - ED W/REFLEX TO HCV QUANT PCR Routine 03/29/2019 11:41 PM EDT from Last 3 Months or Most Recently Relevant to Health Maintenance Results * (ABNORMAL) Hemoglobin A1c (09/06/2023 12:18 PM EST) Hemoglobin A1c 9.7(H) <5.7 % 09/06/2023 2:17 PM EST [facility] Blood Venous blood specimen / Unknown Venipuncture / Unknown 09/06/2023 12:18 PM EST 09/06/2023 12:18 PM EST Narrative [facility] - 09/06/2023 2:17 PM EST HA1C Interpretive Data: Diagnosis of Diabetes: Diabetic > or = 6.5% Pre-diabetic 5.7 to 6.4% Non-diabetic < or = 5.6% Glycemic Targets for Type I and Type II Diabetics: Non- Adults <7.0% Adults <6.0% Children and Adolescents <7.5% Source: [place] Diabetes [employer]. Standards of medical care in diabetes,2017. Diabetes Care.2017:40 (suppl 1):S1-S135. HbA1c assay performed by an ion-exchange chromatography method that is certified traceable to the DCCT. us Tesfaye Calvillo MD LAB BLOOD ORDERABLES Final Result [facility] [address] [place] [address] * [place] Hepatitis C Antibody (03/29/2019 11:41 PM EDT) [place] Hepatitis C Ab NEGATIVE Reference Range: Negative [facility] 03/29/2019 11:4 1 PM EDT 03/29/2019 11:56 PM EDT Jake Reyes MD LAB BLOOD ORDERABLES F inal Result [facility] from Last 3 Months or Most Recently Relevant to Health Maintenance Insurance [employer] [facility] MEDICAID Care Teams Coal Trimmer Relationship Specialty Start Date End Date Tiffany Pressley PA [address] [place] [address] PCP - General 12/04/23 Tesfaye Calvillo MD [address] [facility] [address] [place] [address] Consulting Physician Urology 11/11/23
--- OUTSIDE RECORDS SUMMARY | 2025-05-25 09:34 | XMS_ITS | Patient Health Record ---
Author Organization [employer] [facility] Address [address] [place], [place] [address] Care Team Providers Care Stars Specialist Name Role Phone NIRANJAN CHRISTIANSON Unavailable [phone] Allergies Allergen (clinical drug ingredient) Drug/Non Drug Allergy documented on EMR Reaction Allergy Type Onset Date Status gabapentin GABAPENTIN (uncoded) Unknown Allergy Active pregabalin LYRICA (uncoded) Unknown Allergy Ac tive Reason For Referral No Information Medications Medication SIG (Take, Route, Frequency, Duration) Notes Start Date End Date Status carBAMazepine 200 MG 1 tablet Orally Twi ce a day; Duration: 30 day(s) Active Lisinopril 20 MG 1 tablet Orally BID; Duration: 30 day(s) Active Metoprolol Succinate ER 100 MG 1 tablet Orally qhs; Duration: 30 day(s) ... Active hydroCHLOROthiazide 25 MG 1 tablet Orall y Once a day Active Sulindac 200 MG 1 tablet with food Orally Twice a day; Duration: 30 day(s) Active dexAMETHasone 4 MG 1 tablet Orally Tape r per instructions given to patient; Duration: 10 day(s) Active metFORMIN HCl 1000 MG 1 tablet with meal s Orally Twice a day Active Problems No Known Problems Plan Of Treatment Pending Test Test Name Order Date ORDER THIS IN DI. NOT PROCEDURES. DO NOT USE THIS ONEEKG 01/04/2015 Future Test Test Name Order Date TSH 01/11/2015 CBC With Differential/Platelet 5 Lipid Panel With LDL/HDL Ratio 5 Comp. Metabolic Panel (14) 01/11/2015 Triiodothyronine (T3), Free 01/11/2015 Hemoglobin A1c 01/11/2015 Vitamin B12 01/11/2015 Vitamin D, 25-Hydroxy 01/11/2015 Thyroxine (T4) Free, Direct, S 5 Microalbumin, Random Urine 01/11/2015 Urinalysis, Complete 01/11/2015 Insurance Providers Payer Name Payer Address Payer Phone Subscriber Number Group Number Insured Name Patient Relationship to Insured Coverage Start Date Coverage End Date [facility] [address] [place] [address] [id number] Elia ISLAS Self - patient is the insured Medical (General) History Medical History History ICD Code HTN DIABETES TYPE 2 Surgical History Surgery Date(Month/Year) DISK HERNIATION SPINAL CORD STIMULATOR LEFT AC JOINT REPAIR LEFT KNEE SCOPE Hospitalization History Reason Date(Month/Year) SURGERIES FALL
== END 2025-05-24 23:59 ==
LOC: LAB.DROPOF 05-25 09:31
PROVIDERS: PCP Family Medicine; Visit Provider Family Medicine
DX: E11.9 Type 2 diabetes mellitus without complications (principal); R79.89 Other specified abnormal findings of blood chemistry
CPT/HCPCS: 80053; 83036; 84436; 84439; 84443; 84479

== ENCOUNTER 2025-05-26 09:53 | Outpatient (CLI) | payer OTHER, SELFPAY ==
--- NOTE | 2025-05-26 09:56 | XR_ITS ---
FINAL REPORT CLINICAL HISTORY: pain FINDINGS: LEFT SHOULDER 3 views of the left shoulder were obtained. There is no acute fracture or dislocation. Visualized joint spaces are normally aligned. There is degenerative joint disease at the glenohumeral and acromioclavicular joints. Soft tissues are unremarkable. IMPRESSION: No acute bony abnormality. Reviewed, Interpreted and Dictated by Mellisa Diaz MD Transcribed by Frances Patterson Authenticated and [facility]
--- NOTE | 2025-05-26 09:56 | XR_ITS ---
FINAL REPORT CLINICAL HISTORY: shoulder pain FINDINGS: RIGHT SHOULDER Three views demonstrate no acute fracture or dislocation. The visualized joint spaces are normally aligned. There is degenerative joint disease of the glenohumeral and acromioclavicular joints. The soft tissues are unremarkable. IMPRESSION: No acute process. Reviewed, Interpreted and Dictated by Mellisa Diaz MD Transcribed by Frances Patterson Authenticated and [facility]
--- OUTSIDE RECORDS SUMMARY | 2025-05-26 10:01 | XMS_ITS | Clinical Summary ---
Author Organization [facility] Address [address] [place] [address] Care Team Providers Care Wild Animal Caretaker Name Role Phone Tesfaye Calvillo MD Unavailable [phone] Tiffany Pressley Primary Care Provider [phone] Allergies Active Allergy Reactions Criticality Noted Date [...] Date Last Done Comments [facility]-HIV Screening 1970 [facility]-/Child/Adol SDOH Screenings 1970 [facility]- SDOH Screenings 02/10/1988 [...] 2) 02/10/2020 [facility]-Depression Screening 11/11/2024 024, 06/17/2023 [id number] Vaccine ( season) 2025 [facility]-Influenza Vaccine (#1) [...] this topic Medical Devices Implanted Type Area Vice President Quality Improvement Device Identifier Shelf Expiration Date Model / Serial / Lot Retractor Male Sling - [id number] Implanted:Qty : 1 on 09/25/2023 by Tesfaye Calvillo MD at [facility] Implant N/A: Penis [employer]-351 744 05/27/2028 [id number] / / [id number] Kit Ams 700 Accessory - [id number] Implanted:Qty : 1 on 09/25/2023 by Tesfaye Calvillo MD at [facility] Implant N/A: Penis [employer]-351 744 05/29/2028 [id number] / / [id number] Conceal Iz - [id number] Implanted:Qty : 1 on 09/25/2023 by Tesfaye Calvillo MD at [facility] Implant N/A: Penis [employer]-351 744 06/18/2025 [id number] / / [id number] Cx Preconnect Ms 21cm Ps Iz - [id number] Implanted:Qty : 1 on 09/25/2023 by Tesfaye Calvillo MD at [facility] Implant N/A: Penis [employer]-351 744 07/31/2025 [id number] / / [id number] Prosthesis Penile Gore Cutter Rte Snapcone - [id number] Implanted:Qty : 1 on 09/25/2023 by Tesfaye Calvillo MD at [facility] Implant N/A: Penis [employer]-351 744 08/31/2028 [id number] / / [id number] Spinal Cord Stimulator Spinal Cord Stimulator Right: [...] Adults <6.0% Children and Adolescents <7.5% Source: [employer]. Standards of medical care in diabetes,2017. Diabetes Care.2017:40 (suppl 1):S1-S135. HbA1c assay performed by an ion-exchange chromatography method that is certified traceable to the DCCT. us Tesfaye Calvillo MD LAB BLOOD ORDERABLES Final Result [facility] [address] [place] [address] * [place] Hepatitis C Antibody (03/29/2019 11:41 PM EDT) [place] Hepatitis C Ab NEGATIVE Reference Range: Negative SUNQUEST 03/29/2019 11:4 1 PM EDT 03/29/2019 11:56 PM EDT Jake Reyes MD LAB BLOOD ORDERABLES F inal Result SUNQUEST from Last 3 Months or Most Recently Relevant to Health Maintenance Insurance AETNA [facility] MEDICAID Care Teams Wild Animal Caretaker Relationship Specialty Start Date End Date Tiffany Pressley PA [address] [place] [address] PCP - General 12/04/23 Tesfaye Calvillo MD [address] [facility] [address] [place] [address] Consulting Physician Urology 11/11/23
--- OUTSIDE RECORDS SUMMARY | 2025-05-26 10:01 | XMS_ITS | Clinical Summary ---
Author Organization [facility] Address [address] [facility] [address] [place] [address] Phone Care Team Providers Care Rv Detailer Name Role Phone Mita Long Unavailable Unavailable Conditions or Problems Problem Name Problem Code Onset Date Status Entry Date Provider Comment Standard Description Annotate Acquired absence of right great toe Z89.411 (ICD-10-CM ) 11/04 Active 11/04 Analia Benjamin Acquired absence of right great toe Skin tissue necrosis 97588622 (SNOMED CT) 11/04 Active 11/04 Analia Benjamin Skin necrosis Nausea and vomiting 50874430 (SNOMED CT) 11/04 Active 11/04 Analia Benjamin Nausea and vomiting MSSA infection 141572503 (SNOMED CT) 10/24 Active 10/24 Analia Benjamin Infection by methicillin sensitive Staphylococcus aureus DM chronic ulcer of left foot, plantar surface, 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.621) L97.522 (ICD-10-CM ) 10/24 Active 10/24 Analia Benjamin Non-pressure chronic ulcer of other part of left foot with fat layer exposed Cellulitis, foot, left 331032682 (SNOMED CT) 10/24 Active 10/24 Analia Benjamin Cellulitis of foot Hypokalemia 57800504 (SNOMED CT) 10/24 Active 10/24 Analia Benjamin Hypokalemia Obesity, class 1, BMI 30 to <35 E66.811 (ICD-10-CM ) 10/24 Active 10/24 Analia Benjamin Obesity, class 1 Nicotine dependence, cigarettes F17.210 (ICD-10-CM ) 10/24 Active 10/24 Analia Alexander Nicotine dependence, cigarettes, uncomplicated COPD 76794132 (SNOMED CT) 10/24 Active 10/24 Analia Alexander Chronic obstructive pulmonary disease DM II with diabetic polyneuropathy E11.42 (ICD-10-CM ) 10/24 Active 10/24 Analia Alexander Type 2 diabetes mellitus with diabetic polyneuropathy Benign Essential Hypertension 52662008 (SNOMED CT) 10/24 Active 10/24 Analia Alexander Benign hypertension Medications Medication Instructions Start Date Stop Date Generic Name NDC Provider CEFUROXIME AXETIL 500 MG TABS 1 tablet by mouth twice a day 10/26 cefuroxime axetil 33464539879 Anthony Polanco METHADONE HCL 5 MG TABS Take 1 tablet by mouth every eight hours 10/26 methadone 20973426612 Anthony Polanco ceftriaxone jocelin lindsay Rocephin 2G IV [id number]/[id number] 09/22 ceftriaxone jocelin Cordova RN CEFUROXIME AXETIL 500 MG TABS 1 tablet by mouth twice a day 10/26 cefuroxime axetil 87795307042 Denys Elizabeth MD METFORMIN HCL 1000 MG TABS Take 1 tablet by mouth twice a day metformin 25091776875 Yg Joao insulin NPH-insulin regular (humuLIN 70/30,novoLIN 70/30) (7 Inject 70 unit subcutaneously twice a day as directed humuLIN 70/30,novoLIN 70/30 Yg Joao DEXCOM G7 SENSOR Use blood-gl ucose sensor 35471683867 Yg Joao METRONIDAZOLE 500 MG TABS Take 1 tablet by mouth every twelve hours 11/03 metronidazole 56445565634 Yg Joao LOVASTATIN 10 MG TABS Take 1 tablet by mouth every night lovastatin 74155848634 Yg Joao LISINOPRIL-HYDRO CHLOROTHIAZIDE 20-25 MG TABS Take 2 tablet by mouth once a day lisinopril-hydroc hlorothiazide 88725332168 [facility] VITAMIN D3 50 MCG (1999) TABS Take 1 tablet by mouth once a day cholecalciferol (vitamin d3) 64164097498 [facility] SACCHAROMYCES BOULARDII 250 MG CAPS Take 1 capsule by mouth twice a day saccharomyces boulardii 72007842817 [facility] METHADONE HCL 5 MG TABS Take 1 tablet by mouth every eight hours 10/26 methadone 16869936086 [facility] GABAPENTIN 800 MG TABS Take 1 tablet by mouth three times a day gabapentin 14468173581 [facility] empagliflozin (JARDIANCE) 10 MG tablet tablet Take 1 tablet by mouth once a day JARDIANCE [facility] NICOTINE 14 MG/24HR PT24 Place 1 patch to skin once a day as directed nicotine 88094593868 [facility] METOPROLOL SUCCINATE ER 100 MG [id number] Take 1 tablet by mouth once a day metoprolol succinate 11244323638 [facility] SACCHAROMYCES BOULARDII 250 MG CAPS Take 1 capsule by mouth 2 (Two) Times a Day. 11/02 saccharomyces boulardii 36719620279 [facility]IE [facility]user OXYCODONE HCL 10 MG TABS Take 1 tablet by mouth Every 4 (Four) Hours As Needed for Moderate Pain for up to 3 days. 10/23 oxycodone 45557605934 [facility] NICOTINE 14 MG/24HR PT24 Place 1 patch on the skin as directed by provider Daily. 11/02 nicotine 18886011391 [facility] METRONIDAZOLE 500 MG TABS Take 1 tablet by mouth Every 12 (Twelve) Hours for 14 days. 11/03 metronidazole 24271253690 [facility]IE [facility] METOPROLOL SUCCINATE ER 100 MG [id number] Take 1 tablet by mouth Daily. 11/02 metoprolol succinate 16160778829 QIE q[facility]user METHADONE HCL 5 MG TABS Take 1 tablet by mouth Every 8 (Eight) Hours. 11/02 methadone 08970815444 QIE qieuser METFORMIN HCL 1000 MG TABS Take 1 tablet by mouth 2 (Two) Times a Day With Meals. 11/02 metformin 25635888897 QIE qieuser LOVASTATIN 10 MG TABS Take 1 tablet by mouth Every Night. 11/02 lovastatin 47659951759 QIE qieuser LISINOPRIL-HYDRO CHLOROTHIAZIDE 20-25 MG TABS Take 2 tablets by mouth Daily. 11/02 lisinopril-hydroc hlorothiazide 66210754632 QIE qieuser insulin NPH-insulin regular (humuLIN 70/30,novoLIN 70/30) (7 Inject 70 Units under the skin into the appropriate area as directed 2 (Two) Times a Day With Meals. 11/02 humuLIN 70/30,novoLIN 70/30 QIE qieuser GABAPENTIN 800 MG TABS Take 1 tablet by mouth 3 (Three) Times a Day. 11/02 gabapentin 70481075227 QIE qieuser empagliflozin (JARDIANCE) 10 MG tablet tablet Take 1 tablet by mouth Daily. 11/02 JARDIANCE QIE qieuser DEXCOM G7 SENSOR Use. 11/02 blood-glucose sensor 70249325444 [facility] VITAMIN D3 50 MCG (2000 UT) TABS Take 1 tablet by mouth Daily. 11/02 cholecalciferol (vitamin d3) 71633062392 QIE qieuser ceftriaxone jocelin lindsay Rocephin 2G IV [id number]/[id number] 09/22 ceftriaxone jocelin Cordova RN Medications Administered [...]
--- OUTSIDE RECORDS SUMMARY | 2025-05-26 10:01 | XMS_ITS | Clinical Summary ---
Author Organization [facility] Address [address] [place] [address] Care Team Providers Care Domestic Technician Name Role Phone J Carlos Hi MD Primary Care Provider [phone] Allergies No known active allergies Medications Continuous [...] sprayIndications :Opioid Overdose Call 911. Don't prime. [place] in 1 nostril for overdose. Repeat in [...] materials from doctor or pharmacy Never 10/15/2024 [facility] Utilities Answer Date Recorded In the past 12 months has th e [employer], gas, oil, or water [employer] threatened to shut off services in your [...] housing, medical care, and heating? Hard 08/17/2024 [facility] [place] of Occupat ional Health - Occupational Stress [...] GED or equivalent No 08/27/2024 Preferred Language Turkish 08/27/2024 PHQ-2 Answer Date Recorded Patient Health [...] VACCINE 06/16/2025 Medical Devices Implanted Type Area Turner In Device Identifier Shelf Expiration Date Model / Serial / Lot Erectile Dysfunction Implant [employer] Procedures Procedure Name Priority Date/Time Associated Diagnosis Comments HEMOGLOBIN A1C Add-On 08/14/2024 9:37 PM EST from Last 3 Months or Most Recently Relevant to Health Maintenance Results * (ABNORMAL) Hemoglobin A1c (08/14/2024 9:37 PM EST) Hemoglobin A1C 8.70(H) 4.80 - 5.60 % 08/15/2024 2:05 AM EST [facility] Blood Venipuncture / Unknown 08/14/2024 9:37 PM EST 08/14/2024 9:44 PM EST Narrative [facility] - 08/15/2024 2:05 AM EST Hemoglobin A1C Ranges: Increased Risk for Diabetes 5.7% to 6.4% Diabetes >= 6.5% Diabetic Goal < 7.0% Bahman Romo MD LAB BLOOD ORDERABLES Final Re sult [facility]
[address] [place] [address], from Last 3 Months or Most Recently Relevant to [place] [address] [place] [id number] [facility] Advance Directives * CPR (Attempt to Resuscitate) [...] or is breathing): Full Support Care Teams Domestic Technician Relationship Specialty Start Date End Date J Carlos Hi MD [address] [place] [address] PCP - General Family Medicine 08/17/24
--- OUTSIDE RECORDS SUMMARY | 2025-05-26 10:02 | XMS_ITS | Encounter Summary ---
Author Organization [facility] Address [address] [place] [address] Care Team Providers Care Aniline Press Worker Name Role Phone Eugene Richards MD Primary Care Provider [phone] Tesfaye Calvillo MD Unavailable [phone] Tiffany Pressley Primary Care Provider [phone] Reason for Referral * Consultation (Routine) - Closed Specialty Diagnoses / Procedures Referred By Cristiano gonzalez Referred To Contact Orthopaedic Surgery Diagnoses Rotator cuff tear arthropathy, left Geoffrey Hickman DO [address] [place] [address] Phone: tel: fax: Andres Segura MD [address] [facility] [address] [place] [address] Phone: tel: fax: Referral ID Status Reason Start Date Expiration Date V isits Requested Visits Authorized [id number] Closed Specialty Services Required 11/08/2023 05/09/2025 1 1 Encounter Details Date Type Department Care Team (Late st Contact Info) Description 11/08/2023 [facility] [address] [place] [address] Geoffrey Hickman DO [address] [place] [address] [place] [address] Rotator cuff tear arthropathy, left (Primary Dx) [...] Not at all 11/11/2023 3:08 PM Emma Rijoas RN Patient Health Questionnaire -2 Score 0 [...] documented as of this encounter Care Teams Aniline Press Worker Relationship Specialty Start Date End Date Eugene Richards MD [address] [place] [address] PCP - General 01/27/21 12/03/23 Tiffany Pressley PA [address] [place], [place] [address] PCP - General 12/04/23 Tesfaye Calvillo MD [address] [facility] [address] [place] [address] Consulting Physician Urology 11/11/23 documented as of this encounter
--- OUTSIDE RECORDS SUMMARY | 2025-05-26 10:02 | XMS_ITS | Patient Health Record ---
Author Organization [employer] [facility] Address [address] [place], [place] [address] Care Team Providers Care Bottom Sprayer Name Role Phone NIRANJAN CHRISTIANSON Unavailable [phone] Allergies Allergen (clinical drug ingredient) Drug/Non Drug [...] Insured Coverage Start Date Coverage End Date [facility] [place] [address] [place] [address] [id number] Elia ISLAS Self - patient is the insured Medical (General) History Medical History History ICD Code HTN DIABETES TYPE 2 Surgical History Surgery Date(Month/Year) DISK HERNIATION SPINAL CORD STIMULATOR LEFT AC JOINT REPAIR LEFT KNEE SCOPE Hospitalization History Reason Date(Month/Year) SURGERIES FALL
== END 2025-05-26 23:59 | disposition home or self-care (01) ==
LOC: RAD 09:54
PROVIDERS: PCP Family Medicine; Visit Provider Family Medicine
DX: M25.519 Pain in unspecified shoulder (principal)
CPT/HCPCS: 73030

== ENCOUNTER 2025-05-31 14:03 | Outpatient (CLI) | payer OTHER, SELFPAY ==
--- OUTSIDE RECORDS SUMMARY | 2025-05-31 14:06 | XMS_ITS | Clinical Summary ---
Author Organization [facility] Address [address] [place] [address] Care Team Providers Care Welding Machine Operator Friction Name Role Phone Tesfaye Calvillo MD Unavailable [phone] Tiffany Pressley Primary Care Provider [phone] Allergies Active Allergy Reactions Criticality Noted Date [...] 2) 02/10/2020 [facility]-Depression Screening 11/11/2024 024, 06/17/2023 [id number] Vaccine ( season) 2025 [facility]-Influenza Vaccine (#1) [...] this topic Medical Devices Implanted Type Area Instructional Interventionist Device Identifier Shelf Expiration Date Model / Serial / Lot Retractor Male Sling - [id number] Implanted:Qty : 1 on 09/25/2023 by Tesfaye Calvillo MD at [facility] Implant N/A: Penis [employer]-351 744 05/27/2028 [id number] / / [id number] Kit Ams 700 Accessory - [id number] Implanted:Qty : 1 on 09/25/2023 by Tesfaye Calvillo MD at [facility] Implant N/A: Penis [employer]-351 744 05/29/2028 [id number] / / [id number] Conceal Iz - [id number] Implanted:Qty : 1 on 09/25/2023 by Tesfaye Calvillo MD at [facility] Implant N/A: Penis [employer]-351 744 06/18/2025 [id number] / / [id number] Cx Preconnect Ms 21cm Ps Iz - [id number] Implanted:Qty : 1 on 09/25/2023 by Tesfaye Calvillo MD at [facility] Implant N/A: Penis [employer]-351 744 07/31/2025 [id number] 2 / / [id number] Prosthesis Penile Plastic Tubing Insulation Supervisor Rte Snapcone - [id number] Implanted:Qty : 1 on 09/25/2023 by Tesfaye Calvillo MD at [facility] Implant N/A: Penis [employer]-351 744 08/31/2028 [id number] / / [id number] Spinal Cord Stimulator Spinal Cord Stimulator Right: [...] Adults <6.0% Children and Adolescents <7.5% Source: [place] [employer]. Standards of medical care in diabetes,2017. Diabetes Care.2017:40 (suppl 1):S1-S135. HbA1c assay performed by an ion-exchange chromatography method that is certified traceable to the DCCT. us Tesfaye Calvillo MD LAB BLOOD ORDERABLES Final Result [facility] [address] [place] [address] * [place] Hepatitis C Antibody (03/29/2019 11:41 PM EDT) [place] Hepatitis C Ab NEGATIVE Reference Range: Negative SUNQUEST 03/29/2019 11:4 1 PM EDT 03/29/2019 11:56 PM EDT Jake Reyes MD LAB BLOOD ORDERABLES F inal Result SUNQUEST from Last 3 Months or Most Recently Relevant to Health Maintenance Insurance AETNA [facility] MEDICAID Care Teams Welding Machine Operator Friction Relationship Specialty Start Date End Date Tiffany Pressley PA [address] [place] [address] PCP - General 12/04/23 Tesfaye Calvillo MD [address] [facility] [address] [place] [address] Consulting Physician Urology 11/11/23
--- OUTSIDE RECORDS SUMMARY | 2025-05-31 14:06 | XMS_ITS | Clinical Summary ---
Author Organization [facility] Address [address] [facility] [address] [place] [address] Phone Care Team Providers Care Security Messenger Name Role Phone Mita Long Unavailable Unavailable Conditions or Problems Problem Name Problem Code Onset Date Status Entry Date Provider Comment Standard Description Annotate Acquired absence of right great toe Z89.411 (ICD-10-CM ) 11/04 Active 11/04 Analia Benjamin Acquired absence of right great toe Skin tissue necrosis 24534167 (SNOMED CT) 11/04 Active 11/04 Analia Benjamin Skin necrosis Nausea and vomiting 14439622 (SNOMED CT) 11/04 Active 11/04 Analia Benjamin Nausea and vomiting MSSA infection 311818560 (SNOMED CT) 10/24 Active 10/24 Analia Benjamin Infection by methicillin sensitive Staphylococcus aureus DM chronic ulcer of left foot, plantar surface, 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.621) L97.522 (ICD-10-CM ) 10/24 Active 10/24 Analia Benjamin Non-pressure chronic ulcer of other part of left foot with fat layer exposed Cellulitis, foot, left 511415459 (SNOMED CT) 10/24 Active 10/24 Analia Benjamin Cellulitis of foot Hypokalemia 31663786 (SNOMED CT) 10/24 Active 10/24 Analia Benjamin Hypokalemia Obesity, class 1, BMI 30 to <35 E66.811 (ICD-10-CM ) 10/24 Active 10/24 Analia Benjamin Obesity, class 1 Nicotine dependence, cigarettes F17.210 (ICD-10-CM ) 10/24 Active 10/24 Analia Alexander Nicotine dependence, cigarettes, uncomplicated COPD 58523740 (SNOMED CT) 10/24 Active 10/24 Analia Alexander Chronic obstructive pulmonary disease DM II with diabetic polyneuropathy E11.42 (ICD-10-CM ) 10/24 Active 10/24 Analia Alexander Type 2 diabetes mellitus with diabetic polyneuropathy Benign Essential Hypertension 29143004 (SNOMED CT) 10/24 Active 10/24 Analia Alexander Benign hypertension Medications Medication Instructions Start Date Stop Date Generic Name NDC Provider CEFUROXIME AXETIL 500 MG TABS 1 tablet by mouth twice a day 10/26 cefuroxime axetil 07685168620 Anthony Polanco METHADONE HCL 5 MG TABS Take 1 tablet by mouth every eight hours 10/26 methadone 65765521765 Anthony Polanco ceftriaxone jocelin lindsay Rocephin 2G IV [id number]-ONC/BHH 09/22 ceftriaxone jocelin Cordova RN CEFUROXIME AXETIL 500 MG TABS 1 tablet by mouth twice a day 10/26 cefuroxime axetil 84208556954 Denys Elizabeth MD METFORMIN HCL 1000 MG TABS Take 1 tablet by mouth twice a day metformin 30648110259 Yg Joao insulin NPH-insulin regular (humuLIN 70/30,novoLIN 70/30) (7 Inject 70 unit subcutaneously twice a day as directed humuLIN 70/30,novoLIN 70/30 Yg Joao DEXCOM G7 SENSOR Use blood-gl ucose sensor 63316011703 Yg Joao METRONIDAZOLE 500 MG TABS Take 1 tablet by mouth every twelve hours 11/03 metronidazole 00640867527 Yg Joao LOVASTATIN 10 MG TABS Take 1 tablet by mouth every night lovastatin 90327402502 Yg Joao LISINOPRIL-HYDRO CHLOROTHIAZIDE 20-25 MG TABS Take 2 tablet by mouth once a day lisinopril-hydroc hlorothiazide 52238003944 [facility] VITAMIN D3 50 MCG (1999) TABS Take 1 tablet by mouth once a day cholecalciferol (vitamin d3) 71910073500 [facility] SACCHAROMYCES BOULARDII 250 MG CAPS Take 1 capsule by mouth twice a day saccharomyces boulardii 84171520840 [facility] METHADONE HCL 5 MG TABS Take 1 tablet by mouth every eight hours 10/26 methadone 93366257442 [facility] GABAPENTIN 800 MG TABS Take 1 tablet by mouth three times a day gabapentin 62131724706 [facility] empagliflozin (JARDIANCE) 10 MG tablet tablet Take 1 tablet by mouth once a day JARDIANCE [facility] NICOTINE 14 MG/24HR PT24 Place 1 patch to skin once a day as directed nicotine 89636519552 [facility] METOPROLOL SUCCINATE ER 100 MG [id number] Take 1 tablet by mouth once a day metoprolol succinate 27782712251 [facility] SACCHAROMYCES BOULARDII 250 MG CAPS Take 1 capsule by mouth 2 (Two) Times a Day. 11/02 saccharomyces boulardii 65617438122 QIE qieuser OXYCODONE HCL 10 MG TABS Take 1 tablet by mouth Every 4 (Four) Hours As Needed for Moderate Pain for up to 3 days. 10/23 oxycodone 01385589072 QIE qieuser NICOTINE 14 MG/24HR PT24 Place 1 patch on the skin as directed by provider Daily. 11/02 nicotine 87625931250 QIE qieuser METRONIDAZOLE 500 MG TABS Take 1 tablet by mouth Every 12 (Twelve) Hours for 14 days. 11/03 metronidazole 75045328307 QIE qieuser METOPROLOL SUCCINATE ER 100 MG [id number] Take 1 tablet by mouth Daily. 11/02 metoprolol succinate 76954145968 QIE qieuser METHADONE HCL 5 MG TABS Take 1 tablet by mouth Every 8 (Eight) Hours. 11/02 methadone 15180410777 QIE qieuser METFORMIN HCL 1000 MG TABS Take 1 tablet by mouth 2 (Two) Times a Day With Meals. 11/02 metformin 71250477362 QIE qieuser LOVASTATIN 10 MG TABS Take 1 tablet by mouth Every Night. 11/02 lovastatin 61181510792 QIE qieuser LISINOPRIL-HYDRO CHLOROTHIAZIDE 20-25 MG TABS Take 2 tablets by mouth Daily. 11/02 lisinopril-hydroc hlorothiazide 94287212703 QIE qieuser insulin NPH-insulin regular (humuLIN 70/30,novoLIN 70/30) (7 Inject 70 Units under the skin into the appropriate area as directed 2 (Two) Times a Day With Meals. 11/02 humuLIN 70/30,novoLIN 70/30 QIE qieuser GABAPENTIN 800 MG TABS Take 1 tablet by mouth 3 (Three) Times a Day. 11/02 gabapentin 94178072807 QIE qieuser empagliflozin (JARDIANCE) 10 MG tablet tablet Take 1 tablet by mouth Daily. 11/02 JARDIANCE QIE qieuser DEXCOM G7 SENSOR Use. 11/02 blood-glucose sensor 27868495123 QIE qieuser VITAMIN D3 50 MCG (2000 UT) TABS Take 1 tablet by mouth Daily. 11/02 cholecalciferol (vitamin d3) 70717914429 QIE qieuser ceftriaxone jocelin lindsay Rocephin 2G IV [id number]/BHH 09/22 ceftriaxone jocelin Cordova RN Medications Administered [...]
--- OUTSIDE RECORDS SUMMARY | 2025-05-31 14:06 | XMS_ITS | Clinical Summary ---
Author Organization [employer] ([place], [place], [place], [place]) Address [address] [place] [address] Care Team Providers Care Bookkeeping Teacher Name Role Phone Unavailable Primary Care Provider Unavailabl e Allergies Active Allergy Reactions Criticality Noted Date Comments Pregabalin 01/17/2023 Medications OneTouch Ultra Test Strp 10/12/2022 Active gabapentin (NEURONTIN) 800 MG tablet Take 1 tablet (800 mg total) by mouth in the morning and 1 tablet (800 mg total) at noon and 1 tablet (800 mg total) in the evening. Max Daily Amount: 2,400 mg. 10/12/2022 Active HumuLIN 70/30 U-100 Insulin 100 unit/mL (70-30) injection Inject subcutaneous ly. 10/12/2022 Active Active Problems Problem Noted Date Diagnosed Date Arthritis 01/17/2023 At risk for sleep apnea 01/17/2023 Chronic obstructive pulmonary disease (COPD) 12/2022 Diabetes 01/17/2023 HTN (hypertension) 01/17/2023 Neuropathy 01/17/2023 Family History Medical History Relation Name Comments COPD Other Cancer Other Stroke Other Relation Name Status Comments Other Social History Tobacco Use Types Packs/Day Years Used Date Smoking Tobacco: Every Day Cigarettes Smokeless Tobacco: Never Tobacco Cessation:Ready to Q uit: Not Asked; Counseling Given: Not Answered Alcohol Use Standard Drinks/Week Comments Yes 0 (1 standard drink = 0.6 oz pur e alcohol) Sex and Gender Information Value Date Recorded Sex Assigned at Male 03/13/2022 2:04 PM CDT Legal Sex Male 2:04 PM CDT Gender Identity Male 03/13/2022 2:04 PM CDT Sexual Orientation Not on file Plan of Treatment Not on file
--- OUTSIDE RECORDS SUMMARY | 2025-05-31 14:06 | XMS_ITS | Encounter Summary ---
Author Organization [facility] Address [address] [place] [address] Care Team Providers Care Mva Operator Name Role Phone Eugeen Richards MD Primary Care Provider [phone] Tesfaye Calvillo MD Unavailable [phone] Tiffany Pressley Primary Care Provider [phone] Reason for Referral * Consultation (Routine) - Closed Specialty Diagnoses / Procedures Referred By Cristiano gonzalez Referred To Contact Orthopaedic Surgery Diagnoses Rotator cuff tear arthropathy, left Geoffrey Hickman DO [address] [place] [address] Phone: tel: fax: Andres Segura MD [address] [facility] [address] [place] [address] Phone: tel: fax: Referral ID Status Reason Start Date Expiration Date V isits Requested Visits Authorized [id number] Closed Specialty Services Required 11/08/2023 05/09/2025 1 1 Encounter Details Date Type Department Care Team (Late st Contact Info) Description 11/08/2023 Community [facility] [address] [place] [address] Geoffrey Hickman DO [address] [place] [address] Rotator cuff tear arthropathy, left (Primary Dx) [...] documented as of this encounter Care Teams Mva Operator Relationship Specialty Start Date End Date Eugene Richards MD [address] [place] [address] PCP - General 01/27/21 12/03/23 Tiffany Pressley PA [address] [place], [place] [id number] PCP - General 12/04/23 Tesfaye Calvillo MD [address] [facility] [address] [place] [address] Consulting Physician Urology 11/11/23 documented as of this encounter
--- OUTSIDE RECORDS SUMMARY | 2025-05-31 14:06 | XMS_ITS | Clinical Summary ---
Author Organization [facility] Address [address] [place] [address] Care Team Providers Care Manager Market Research Name Role Phone J Carlos Hi MD Primary Care Provider [phone] Allergies No known active allergies Medications Continuous [...] sprayIndications :Opioid Overdose Call 911. Don't prime. Waucoma in 1 nostril for overdose. Repeat in [...] materials from doctor or pharmacy Never 10/15/2024 [facility] Utilities Answer Date Recorded In the past 12 months has th e [employer], gas, oil, or water [employer] threatened to shut off services in your [...] housing, medical care, and heating? Hard 08/17/2024 [facility] [place] of Occupat ional Health - Occupational Stress [...] GED or equivalent No 08/27/2024 Preferred Language Polish 08/27/2024 PHQ-2 Answer Date Recorded Patient Health [...] VACCINE 06/16/2025 Medical Devices Implanted Type Area Biomedical Engineering Internship Device Identifier Shelf Expiration Date Model / Serial / Lot Erectile Dysfunction Implant [employer] Procedures Procedure Name Priority Date/Time Associated Diagnosis Comments HEMOGLOBIN A1C Add-On 08/14/2024 9:37 PM EST from Last 3 Months or Most Recently Relevant to Health Maintenance Results * (ABNORMAL) Hemoglobin A1c (08/14/2024 9:37 PM EST) Hemoglobin A1C 8.70(H) 4.80 - 5.60 % 08/15/2024 2:05 AM EST [facility] Blood Venipuncture / Unknown 08/14/2024 9:37 PM EST 08/14/2024 9:44 PM EST Narrative [facility] - 08/15/2024 2:05 AM EST Hemoglobin A1C Ranges: Increased Risk for Diabetes 5.7% to 6.4% Diabetes >= 6.5% Diabetic Goal < 7.0% Bahman Romo MD LAB BLOOD ORDERABLES Final Re sult [facility]
[address] [place] [address], from Last 3 Months or Most Recently Relevant to [place] [address] [place] [address] [facility] Advance Directives * CPR (Attempt to [...] or is breathing): Full Support Care Teams Manager Market Research Relationship Specialty Start Date End Date J Carlos Hi MD [address] [place] [address] PCP - General Family Medicine 08/17/24
--- OUTSIDE RECORDS SUMMARY | 2025-05-31 14:06 | XMS_ITS | Referral Summary ---
Author Organization [employer] ([place], [place], [place]) Address [address] [place] [address] Care Team Providers Care Electrical Line Splicer Name Role Phone Unavailable Primary Care Provider [...] Diabetes 01/17/2023 HTN (hypertension) 01/17/2023 Neuropathy 01/17/2023 Social History Tobacco Use Types Packs/Day Years [...]
[2025-05-31 14:46] LABS: Hematocrit 38.5 % (42.0-52.0); Hemoglobin 13.4 g/dL (14.1-18.0); Immature Granulocytes % 0.3 %; Mean Corpuscular HGB Conc 34.8 g/dL (31.8-35.4); Mean Corpuscular Hemoglobin 30.9 pg (27.0-31.2); Mean Corpuscular Volume 88.7 fl (80-94); Nucleated Red Blood Cells % 0 %; Platelet Count 105 K/mm3 (142-424); Red Blood Count 4.34 M/mm3 (4.60-6.20); Red Cell Distribution Width-SD 39.9 fL; White Blood Count 6.7 K/mm3 (4.8-10.8)
[2025-05-31 17:59] LABS: Albumin Level 4.2 g/dl (3.5-5.0)
[2025-05-31 18:00] LABS: Chloride 93 mmol/L (98-107); Potassium 3.8 mmoL/L (3.5-5.1); Sodium 134 mmol/L (136-145)
[2025-05-31 18:02] LABS: Alanine Aminotransferase 27 U/L (12-78); Anion Gap 15.8 mEq/L (5-15); Aspartate Amino Transferase 37 U/L (17-59); Bilirubin,Unconjugated 0.3 mg/dL (0.0-1.1); Blood Urea Nitrogen 9 mg/dl (9-20); Carbon Dioxide 29 mmol/L (22.0-30.0); Creatinine,Serum 0.90 mg/dl (0.66-1.25); Estimated Glomerular Filt Rate 88 ml/min (>60); GFR (African American) 106 ML/MIN (>60)
[2025-05-31 18:03] LABS: Alkaline Phosphatase 251 U/L (38-126); Bilirubin,Direct 0.1 mg/dl (0.0-0.4); Bilirubin,Indirect 0.3 mg/dL (0.0-0.9); Bilirubin,Total 0.4 mg/dl (0.2-1.3); Calcium 9.6 mg/dl (8.4-10.2); Cholesterol 120 mg/dl (140-200); Glucose 304 mg/dl (74-100); HDL Cholesterol 36 mg/dl (40-60); Magnesium 1.3 mg/dl (1.6-2.3); Total Protein,Serum 7.0 g/dl (6.3-8.2); Triglycerides 203 mg/dl (30-150)
[2025-05-31 18:22] LABS: Free T4 (Free Thyroxine) 1.44 ng/dl (0.78-2.19)
[2025-05-31 18:33] LABS: Thyroid Stimulating Hormone 0.78 uIU/mL (0.465-4.68)
== END 2025-05-31 23:59 | disposition home or self-care (01) ==
LOC: LAB 14:04
PROVIDERS: PCP Family Medicine; Visit Provider Nurse Practitioner
DX: I73.9 Peripheral vascular disease, unspecified (principal); I70.1 Atherosclerosis of renal artery; I10 Essential (primary) hypertension; R06.00 Dyspnea, unspecified
CPT/HCPCS: 36415; 80048; 80061; 80076; 83735; 84439; 84443; 85025; G0103

== ENCOUNTER 2025-06-16 13:54 | Outpatient (CLI) | payer OTHER, SELFPAY ==
--- OUTSIDE RECORDS SUMMARY | 2025-06-16 13:57 | XMS_ITS | Clinical Summary ---
Author Organization [facility] Address [address] [place] [address] Care Team Providers Care Precinct Commanding Officer Name Role Phone Tesfaye Calvillo MD Unavailable [phone] Tiffany Pressley Primary Care Provider [phone] Allergies Active Allergy Reactions Criticality Noted Date [...] 2) 02/10/2020 [facility]-Depression Screening 11/11/2024 024, 06/17/2023 [id number] Vaccine ( season) 2025 [facility]-Influenza Vaccine (#1) [...] this topic Medical Devices Implanted Type Area Roofing Machine Operator Device Identifier Shelf Expiration Date Model / Serial / Lot Retractor Male Sling - [id number] Implanted:Qty : 1 on 09/25/2023 by Tesfaye Calvillo MD at [facility] Implant N/A: Penis [employer]-351 744 05/27/2028 [id number] / / [id number] Kit Ams 700 Accessory - [id number] Implanted:Qty : 1 on 09/25/2023 by Tesfaye Calvillo MD at [facility] Implant N/A: Penis [employer]-351 744 05/29/2028 [id number] / / [id number] Conceal Iz - [id number] Implanted:Qty : 1 on 09/25/2023 by Tesfaye Calvillo MD at [facility] Implant N/A: Penis [employer]-351 744 06/18/2025 [id number] / / [id number] Cx Preconnect Ms 21cm Ps Iz - [id number] Implanted:Qty : 1 on 09/25/2023 by Tesfaye Calvillo MD at [facility] Implant N/A: Penis [employer]-351 744 07/31/2025 [id number] / / [id number] Prosthesis Penile Pleat Taper Rte Snapcone - [id number] Implanted:Qty : 1 on 09/25/2023 by Tesfaye Calvillo MD at [facility] Implant N/A: Penis [employer]-351 744 08/31/2028 [id number] / / [id number] Spinal Cord Stimulator Spinal Cord Stimulator Right: [...] Adults <6.0% Children and Adolescents <7.5% Source: [place] Diabetes [employer]. Standards of medical care in diabetes,2017. Diabetes Care.2017:40 (suppl 1):S1-S135. HbA1c assay performed by an ion-exchange chromatography method that is certified traceable to the DCCT. us Tesfaye Calvillo MD LAB BLOOD ORDERABLES Final Result [facility] [address] [place] [address] * [place] Hepatitis C Antibody (03/29/2019 11:41 PM EDT) [place] Hepatitis C Ab NEGATIVE Reference Range: Negative SUNQUEST 03/29/2019 11:4 1 PM EDT 03/29/2019 11:56 PM EDT Jake Reyes MD LAB BLOOD ORDERABLES F inal Result SUNQUEST from Last 3 Months or Most Recently Relevant to Health Maintenance Insurance AETNA [facility] MEDICAID Care Teams Precinct Commanding Officer Relationship Specialty Start Date End Date Tiffany Pressley PA [address] [place] [address] PCP - General 12/04/23 Tesfaye Calvillo MD [address] [facility] [address] [place] [address] Consulting Physician Urology 11/11/23
--- OUTSIDE RECORDS SUMMARY | 2025-06-16 13:57 | XMS_ITS | Clinical Summary ---
Author Organization [employer] ([place], [place], [place], [place]) Address [address] [place] [address] Care Team Providers Care Clarification Operator Name Role Phone Unavailable Primary Care Provider [...]
--- OUTSIDE RECORDS SUMMARY | 2025-06-16 13:57 | XMS_ITS | Clinical Summary ---
Author Organization [facility] Address [address] [place] [address] Care Team Providers Care Toll Lineman Name Role Phone J Carlos Hi MD Primary Care Provider [phone] Allergies No known active allergies Medications Continuous [...] sprayIndications :Opioid Overdose Call 911. Don't prime. [place] in 1 nostril for overdose. Repeat in [...] from doctor or pharmacy Never 10/15/2024 [facility] Utilities Answer Date Recorded In the past 12 months has th e [employer], gas, oil, or water [employer] threatened to shut off services in your [...] housing, medical care, and heating? Hard 08/17/2024 [facility] [place] of Occupat ional Health - Occupational Stress [...] GED or equivalent No 08/27/2024 Preferred Language Cypriot 08/27/2024 PHQ-2 Answer Date Recorded Patient Health [...] 02/11/2025 08/14/2024, 08/17, 09/06/2023, Additional history exists INFLUENZA VACCINE 04/16/2025 Medical Devices Implanted Type Area Recreation Program Coordinator Device Identifier Shelf Expiration Date Model / Serial / Lot Erectile Dysfunction Implant [employer] Procedures Procedure Name Priority Date/Time Associated Diagnosis Comments HEMOGLOBIN A1C Add-On 08/14/2024 9:37 PM EST from Last 3 Months or Most Recently Relevant to Health Maintenance Results * (ABNORMAL) Hemoglobin A1c (08/14/2024 9:37 PM EST) Hemoglobin A1C 8.70(H) 4.80 - 5.60 % 08/15/2024 2:05 AM EST [facility] Blood Venipuncture / Unknown 08/14/2024 9:37 PM EST 08/14/2024 9:44 PM EST Narrative [facility] - 08/15/2024 2:05 AM EST Hemoglobin A1C Ranges: Increased Risk for Diabetes 5.7% to 6.4% Diabetes >= 6.5% Diabetic Goal < 7.0% Bahman Romo MD LAB BLOOD ORDERABLES Final Re sult [facility]
[address] [place] [address], from Last 3 Months or Most Recently Relevant to [place] [id number] [facility] Advance Directives * CPR [...] or is breathing): Full Support Care Teams Toll Lineman Relationship Specialty Start Date End Date J Carlos Hi MD [address] [place] [address] (work) PCP - General Family Medicine 08/17/24
--- OUTSIDE RECORDS SUMMARY | 2025-06-16 13:57 | XMS_ITS | Clinical Summary ---
Author Organization [facility] Address [address] [facility] [address] [place] [address] Phone Care Team Providers Care Final Touch Up Painter Name Role Phone Mita Long Unavailable Unavailable Conditions or Problems Problem Name Problem Code Onset Date Status Entry Date Provider Comment Standard Description Annotate Acquired absence of right great toe Z89.411 (ICD-10-CM ) 11/04 Active 11/04 Analia Benjamin Acquired absence of right great toe Skin tissue necrosis 45086942 (SNOMED CT) 11/04 Active 11/04 Analia Benjamin Skin necrosis Nausea and vomiting 33828800 (SNOMED CT) 11/04 Active 11/04 Analia Benjamin Nausea and vomiting MSSA infection 364814328 (SNOMED CT) 10/24 Active 10/24 Analia Benjamin Infection by methicillin sensitive Staphylococcus aureus DM chronic ulcer of left foot, plantar surface, 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.621) L97.522 (ICD-10-CM ) 10/24 Active 10/24 Analia Benjamin Non-pressure chronic ulcer of other part of left foot with fat layer exposed Cellulitis, foot, left 390385785 (SNOMED CT) 10/24 Active 10/24 Analia Benjamin Cellulitis of foot Hypokalemia 54862596 (SNOMED CT) 10/24 Active 10/24 Analia Benjamin Hypokalemia Obesity, class 1, BMI 30 to <35 E66.811 (ICD-10-CM ) 10/24 Active 10/24 Analia Benjamin Obesity, class 1 Nicotine dependence, cigarettes F17.210 (ICD-10-CM ) 10/24 Active 10/24 Analia Alexander Nicotine dependence, cigarettes, uncomplicated COPD 47037284 (SNOMED CT) 10/24 Active 10/24 Analia Alexander Chronic obstructive pulmonary disease DM II with diabetic polyneuropathy E11.42 (ICD-10-CM ) 10/24 Active 10/24 Analia Alexander Type 2 diabetes mellitus with diabetic polyneuropathy Benign Essential Hypertension 18791531 (SNOMED CT) 10/24 Active 10/24 Analia Alexander Benign hypertension Medications Medication Instructions Start Date Stop Date Generic Name NDC Provider CEFUROXIME AXETIL 500 MG TABS 1 tablet by mouth twice a day 10/26 cefuroxime axetil 29907178334 Anthony Polanco METHADONE HCL 5 MG TABS Take 1 tablet by mouth every eight hours 10/26 methadone 53343544051 Anthony Polanco ceftriaxone jocelin lindsay Rocephin 2G IV q13cal-YNW/BHH 09/22 ceftriaxone jocelin Cordova RN CEFUROXIME AXETIL 500 MG TABS 1 tablet by mouth twice a day 10/26 cefuroxime axetil 18536652745 Denys Elizabeth MD METFORMIN HCL 1000 MG TABS Take 1 tablet by mouth twice a day metformin 41920964885 Yg Joao insulin NPH-insulin regular (humuLIN 70/30,novoLIN 70/30) (7 Inject 70 unit subcutaneously twice a day as directed humuLIN 70/30,novoLIN 70/30 Yg Joao DEXCOM G7 SENSOR Use blood-gl ucose sensor 87655456916 Yg Joao METRONIDAZOLE 500 MG TABS Take 1 tablet by mouth every twelve hours 11/03 metronidazole 41318009096 Yg Joao LOVASTATIN 10 MG TABS Take 1 tablet by mouth every night lovastatin 47506220689 Yg Joao LISINOPRIL-HYDRO CHLOROTHIAZIDE 20-25 MG TABS Take 2 tablet by mouth once a day lisinopril-hydroc hlorothiazide 26037215422 [facility] VITAMIN D3 50 MCG (1999) TABS Take 1 tablet by mouth once a day cholecalciferol (vitamin d3) 67807921240 [facility] SACCHAROMYCES BOULARDII 250 MG CAPS Take 1 capsule by mouth twice a day saccharomyces boulardii 39936315105 [facility] METHADONE HCL 5 MG TABS Take 1 tablet by mouth every eight hours 10/26 methadone [address]10 [facility] GABAPENTIN 800 MG TABS Take 1 tablet by mouth three times a day gabapentin 57718700226 [facility] empagliflozin (JARDIANCE) 10 MG tablet tablet Take 1 tablet by mouth once a day JARDIANCE [facility] NICOTINE 14 MG/24HR PT24 Place 1 patch to skin once a day as directed nicotine 94124083450 [facility] METOPROLOL SUCCINATE ER 100 MG [id number] Take 1 tablet by mouth once a day metoprolol succinate 84925510663 [facility] SACCHAROMYCES BOULARDII 250 MG CAPS Take 1 capsule by mouth 2 (Two) Times a Day. 11/02 saccharomyces boulardii 29149385963 [facility] OXYCODONE HCL 10 MG TABS Take 1 tablet by mouth Every 4 (Four) Hours As Needed for Moderate Pain for up to 3 days. 10/23 oxycodone 23638018753 [facility] NICOTINE 14 MG/24HR PT24 Place 1 patch on the skin as directed by provider Daily. 11/02 nicotine 43734375666 [facility] METRONIDAZOLE 500 MG TABS Take 1 tablet by mouth Every 12 (Twelve) Hours for 14 days. 11/03 metronidazole 83813503914 [facility] METOPROLOL SUCCINATE ER 100 MG [id number] Take 1 tablet by mouth Daily. 11/02 metoprolol succinate 63867257968 [facility]IE [facility]user METHADONE HCL 5 MG TABS Take 1 tablet by mouth Every 8 (Eight) Hours. 11/02 methadone 65936324246 [facility]IE [facility]user METFORMIN HCL 1000 MG TABS Take 1 tablet by mouth 2 (Two) Times a Day With Meals. 11/02 metformin 01152466508 [facility]IE [facility]user LOVASTATIN 10 MG TABS Take 1 tablet by mouth Every Night. 11/02 lovastatin 22487714176 [facility] LISINOPRIL-HYDRO CHLOROTHIAZIDE 20-25 MG TABS Take 2 tablets by mouth Daily. 11/02 lisinopril-hydroc hlorothiazide 76304833386 QIE qieuser insulin NPH-insulin regular (humuLIN 70/30,novoLIN 70/30) (7 Inject 70 Units under the skin into the appropriate area as directed 2 (Two) Times a Day With Meals. 11/02 humuLIN 70/30,novoLIN 70/30 [facility] GABAPENTIN 800 MG TABS Take 1 tablet by mouth 3 (Three) Times a Day. 11/02 gabapentin 23895677487 [facility]IE [facility]user empagliflozin (JARDIANCE) 10 MG tablet tablet Take 1 tablet by mouth Daily. 11/02 JARDIANCE QIE qieuser DEXCOM G7 SENSOR Use. 11/02 blood-glucose sensor 63540739493 [facility] VITAMIN D3 50 MCG (2000 UT) TABS Take 1 tablet by mouth Daily. 11/02 cholecalciferol (vitamin d3) 46022204857 [facility]IE [facility]user ceftriaxone jocelin lindsay Rocephin 2G IV [id number]-HHQ/BHH 09/22 ceftriaxone jocelin Cordova RN Medications Administered [...]
--- OUTSIDE RECORDS SUMMARY | 2025-06-16 13:58 | XMS_ITS | Referral Summary ---
Author Organization [employer] ([place], [place], [place], [place]) Address [address] [place] [address] Care Team Providers Care Senior It Auditor Name Role Phone Unavailable Primary Care Provider [...]
--- OUTSIDE RECORDS SUMMARY | 2025-06-16 13:58 | XMS_ITS | Encounter Summary ---
Author Organization [facility] Address [address] [place] [address] Care Team Providers Care Patient Access Associate Name Role Phone Eugene Richards MD Primary Care Provider [phone] Tesfaye Calvlilo MD Unavailable [phone] Tiffany Pressley Primary Care Provider [phone] Reason for Referral * Consultation (Routine) - Closed Specialty Diagnoses / Procedures Referred By Cristiano gonzalez Referred To Contact Orthopaedic Surgery Diagnoses Rotator cuff tear arthropathy, left Geoffrey Hickman DO [address] [place] [address] Phone: tel: fax: Andres Segura MD [address] [facility] [address] [place] [address] Phone: tel: fax: Referral ID Status Reason Start Date Expiration Date V isits Requested Visits Authorized [id number] Closed Specialty Services Required 11/08/2023 05/09/2025 1 1 Encounter Details Date Type Department Care Team (Late st Contact Info) Description 11/08/2023 Community [facility] [address] [place] [address] Geoffrey Hickman DO [address] [place] [address] Rotator cuff tear arthropathy, left (Primary Dx) [...] documented as of this encounter Care Teams Patient Access Associate Relationship Specialty Start Date End Date Eugene Richards MD [address] [place] [address] PCP - General 01/27/21 12/03/23 Tiffany Pressley PA [address] [place], [place] [address] PCP - General 12/04/23 Tesfaye Calvillo MD [address] [facility] [address] [place] [address] Consulting Physician Urology 11/11/23 documented as of this encounter
[2025-06-16 14:36] LABS: Reticulocyte % (Auto) 2.4 % (0.9-3.2)
[2025-06-16 14:47] LABS: Ammonia 28 umol/L (9-30)
[2025-06-16 14:48] LABS: INR 1.04 (0.9-1.1); Prothrombin Time 11.5 seconds (10.1-12.5)
[2025-06-16 16:04] LABS: Iron 85 ug/dL (49-181)
[2025-06-16 16:14] LABS: Total Iron Binding Capacity 390 ug/dL (261-462)
[2025-06-16 16:51] LABS: Folate 6.55 ng/mL
[2025-06-16 17:09] LABS: Ferritin 120 ng/ml (17.9-464); Vitamin B12 308 pg/mL (239-931)
[2025-06-18 15:11] LABS: Antinuclear Antibodies (ANA) Negative (Negative)
== END 2025-06-16 23:59 | disposition home or self-care (01) ==
LOC: LAB 13:55
PROVIDERS: PCP Family Medicine; Visit Provider Internal Medicine Medical Oncology
DX: D64.9 Anemia, unspecified (principal); K74.60 Unspecified cirrhosis of liver
CPT/HCPCS: 36415; 80074; 82103; 82104; 82105; 82140; 82164; 82390; 82607; 82728; 82746; 82784; 83010; 83540; 83550; 83615; 85044; 85610; 86015; 86038; 86376; 86381; 86880

== ENCOUNTER 2025-07-27 07:52 | Outpatient (CLI) | payer OTHER, SELFPAY ==
--- OUTSIDE RECORDS SUMMARY | 2025-07-27 07:55 | XMS_ITS | Patient Health Record ---
Author Organization [employer] [facility] Address [address] [place], [place] [address] Care Team Providers Care Test Boring Crew Chief Name Role Phone NIRANJAN CHRISTIANSON Unavailable [phone] Allergies Allergen (clinical drug ingredient) Drug/Non Drug [...] Insured Coverage Start Date Coverage End Date [facility] [address] [place] [address] [id number] Elia ISLAS Self - patient is the insured Medical (General) History Medical History History ICD Code HTN DIABETES TYPE 2 Surgical History Surgery Date(Month/Year) DISK HERNIATION SPINAL CORD STIMULATOR LEFT AC JOINT REPAIR LEFT KNEE SCOPE Hospitalization History Reason Date(Month/Year) SURGERIES FALL
--- OUTSIDE RECORDS SUMMARY | 2025-07-27 07:55 | XMS_ITS | Clinical Summary ---
Author Organization [facility] Address [address] [place] [address] Care Team Providers Care Device Engineer Name Role Phone Tesfaye Calvillo MD Unavailable [phone] iTffany Pressley Primary Care Provider [phone] Allergies Active Allergy Reactions Criticality Noted Date [...] Date Smoking Tobacco: Every Day Cigarettes 0.5 32.9 Started: 1992 Smokeless Tobacco: Never Tobacco Cessation:Ready [...] 2) 02/10/2020 [facility]-Depression Screening 11/11/2024 024, 06/17/2023 [id number] Vaccine ( season) 2025 [facility]-Influenza Vaccine (#1) [...] this topic Medical Devices Implanted Type Area Hair Salon Manager Device Identifier Shelf Expiration Date Model / Serial / Lot Retractor Male Sling - [id number] Implanted:Qty : 1 on 09/25/2023 by Tesfaye Calvillo MD at [facility] Implant N/A: Penis [employer]-351 744 05/27/2028 [id number] / / [id number] Kit Ams 700 Accessory - [id number] Implanted:Qty : 1 on 09/25/2023 by Tesfaye Calvillo MD at [facility] Implant N/A: Penis [employer]-351 744 05/29/2028 [id number] / / [id number] Conceal Iz - [id number] Implanted:Qty : 1 on 09/25/2023 by Tesfaye Calvillo MD at [facility] Implant N/A: Penis [employer]-351 744 06/18/2025 [id number] / / [id number] Cx Preconnect Ms 21cm Ps Iz - [id number] Implanted:Qty : 1 on 09/25/2023 by Tesfaye Calvillo MD at [facility] Implant N/A: Penis [employer]-351 744 07/31/2025 [id number] / / [id number] Prosthesis Penile Equip Maint Eng Rte Snapcone - [id number] Implanted:Qty : 1 on 09/25/2023 by Tesfaye Calvillo MD at [facility] Implant N/A: Penis [employer]-351 744 08/31/2028 [id number] / / [id number] Spinal Cord Stimulator Spinal Cord Stimulator Right: [...] Adults <6.0% Children and Adolescents <7.5% Source: [place] Diabetes [employer]. Standards of medical care in diabetes,2017. Diabetes Care.2017:40 (suppl 1):S1-S135. HbA1c assay performed by an ion-exchange chromatography method that is certified traceable to the DCCT. us Tesfaye Calvillo MD LAB BLOOD ORDERABLES Final Result [facility] [address] [place] [address] * [place] Hepatitis C Antibody (03/29/2019 11:41 PM EDT) [place] Hepatitis C Ab NEGATIVE Reference Range: Negative SUNQUEST 03/29/2019 11:4 1 PM EDT 03/29/2019 11:56 PM EDT Jake Reyes MD LAB BLOOD ORDERABLES F inal Result SUNQUEST from Last 3 Months or Most Recently Relevant to Health Maintenance Insurance AETNA [facility] MEDICAID Care Teams Device Engineer Relationship Specialty Start Date End Date Tiffany Pressley PA [address] [place] [address] PCP - General 12/04/23 Tesfaye Calvillo MD [address] [facility] [address] [place] [address] Consulting Physician Urology 11/11/23
--- OUTSIDE RECORDS SUMMARY | 2025-07-27 07:55 | XMS_ITS | Encounter Summary ---
Author Organization [facility] Address [address] [place] [address] Care Team Providers Care Pilot Supervisor Name Role Phone Eugene Richards MD Primary Care Provider [phone] Tesfaye Calvillo MD Unavailable [phone] Tiffany Pressley Primary Care Provider [phone] Reason for Referral * Consultation (Routine) - Closed Specialty Diagnoses / Procedures Referred By Cristiano gonzalez Referred To Contact Orthopaedic Surgery Diagnoses Rotator cuff tear arthropathy, left Geoffrey Hickman DO [address] [place] [address] Phone: tel: fax: Andres Segura MD [address] [facility] [address] [place] [address] Phone: tel: fax: Referral ID Status Reason Start Date Expiration Date V isits Requested Visits Authorized [id number] Closed Specialty Services Required 11/08/2023 05/09/2025 1 1 Encounter Details Date Type Department Care Team (Late st Contact Info) Description 11/08/2023 Community [facility] [address] [place] [address] Geoffrey Hickman DO [address] [place] [address] Rotator cuff tear arthropathy, left (Primary Dx) Social History Tobacco Use Types Packs/Day Years Used Date Smoking Tobacco: Every Day Cigarettes 0.5 32.9 Started: 1992 Smokeless Tobacco: Never Alcohol Use [...] documented as of this encounter Care Teams Pilot Supervisor Relationship Specialty Start Date End Date Eugene Richards MD [address] [place] [address] PCP - General 01/27/21 12/03/23 Tiffany Pressley PA [address] [place], [place] [id number] PCP - General 12/04/23 Tesfaye Calvillo MD [address] [facility] [address] [place] [address] Consulting Physician Urology 11/11/23 documented as of this encounter
--- OUTSIDE RECORDS SUMMARY | 2025-07-27 07:55 | XMS_ITS | Clinical Summary ---
Author Organization [facility] Address [address] [facility] [address] [place] [address] Phone Care Team Providers Care Global Account Director Name Role Phone Mita Long Unavailable Unavailable Conditions or Problems Problem Name Problem Code Onset Date Status Entry Date Provider Comment Standard Description Annotate Acquired absence of right great toe Z89.411 (ICD-10-CM ) 11/04 Active 11/04 Analia Benjamin Acquired absence of right great toe Skin tissue necrosis 58072419 (SNOMED CT) 11/04 Active 11/04 Analia Benjamin Skin necrosis Nausea and vomiting 13977582 (SNOMED CT) 11/04 Active 11/04 Analia Benjamin Nausea and vomiting MSSA infection 118003188 (SNOMED CT) 10/24 Active 10/24 Analia Benjamin Infection by methicillin sensitive Staphylococcus aureus DM chronic ulcer of left foot, plantar surface, 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.621) L97.522 (ICD-10-CM ) 10/24 Active 10/24 Analia Benjamin Non-pressure chronic ulcer of other part of left foot with fat layer exposed Cellulitis, foot, left 315319364 (SNOMED CT) 10/24 Active 10/24 Analia Benjamin Cellulitis of foot Hypokalemia 33038613 (SNOMED CT) 10/24 Active 10/24 Analia Benjamin Hypokalemia Obesity, class 1, BMI 30 to <35 E66.811 (ICD-10-CM ) 10/24 Active 10/24 Analia Benjamin Obesity, class 1 Nicotine dependence, cigarettes F17.210 (ICD-10-CM ) 10/24 Active 10/24 Analia Alexander Nicotine dependence, cigarettes, uncomplicated COPD 71694920 (SNOMED CT) 10/24 Active 10/24 Analia Alexander Chronic obstructive pulmonary disease DM II with diabetic polyneuropathy E11.42 (ICD-10-CM ) 10/24 Active 10/24 Analia Alexander Type 2 diabetes mellitus with diabetic polyneuropathy Benign Essential Hypertension 55334586 (SNOMED CT) 10/24 Active 10/24 Analia Alexander Benign hypertension Medications Medication Instructions Start Date Stop Date Generic Name NDC Provider CEFUROXIME AXETIL 500 MG TABS 1 tablet by mouth twice a day 10/26 cefuroxime axetil 72397520163 Anthony Polanco METHADONE HCL 5 MG TABS Take 1 tablet by mouth every eight hours 10/26 methadone 18133104158 Anthony Polanco ceftriaxone jocelin lindsay Rocephin 2G IV [id number] 09/22 ceftriaxone jocelin Cordova RN CEFUROXIME AXETIL 500 MG TABS 1 tablet by mouth twice a day 10/26 cefuroxime axetil 86463538625 Denys Elizabeth MD METFORMIN HCL 1000 MG TABS Take 1 tablet by mouth twice a day metformin 52108699752 Yg Joao insulin NPH-insulin regular (humuLIN 70/30,novoLIN 70/30) (7 Inject 70 unit subcutaneously twice a day as directed humuLIN 70/30,novoLIN 70/30 Yg Jaoo DEXCOM G7 SENSOR Use blood-gl ucose sensor 34903524472 Yg Joao METRONIDAZOLE 500 MG TABS Take 1 tablet by mouth every twelve hours 11/03 metronidazole 36656435647 Yg Joao LOVASTATIN 10 MG TABS Take 1 tablet by mouth every night lovastatin 37766365567 Yg Joao LISINOPRIL-HYDRO CHLOROTHIAZIDE 20-25 MG TABS Take 2 tablet by mouth once a day lisinopril-hydroc hlorothiazide 26889418252 [facility] VITAMIN D3 50 MCG (1999) TABS Take 1 tablet by mouth once a day cholecalciferol (vitamin d3) 75497096637 [facility] SACCHAROMYCES BOULARDII 250 MG CAPS Take 1 capsule by mouth twice a day saccharomyces boulardii 25068069844 [facility] METHADONE HCL 5 MG TABS Take 1 tablet by mouth every eight hours 10/26 methadone 68816304913 [facility] GABAPENTIN 800 MG TABS Take 1 tablet by mouth three times a day gabapentin 28376618869 [facility] empagliflozin (JARDIANCE) 10 MG tablet tablet Take 1 tablet by mouth once a day JARDIANCE [facility] NICOTINE 14 MG/24HR PT24 Place 1 patch to skin once a day as directed nicotine 75925119331 [facility] METOPROLOL SUCCINATE ER 100 MG [id number] Take 1 tablet by mouth once a day metoprolol succinate 84185990453 [facility] SACCHAROMYCES BOULARDII 250 MG CAPS Take 1 capsule by mouth 2 (Two) Times a Day. 11/02 saccharomyces boulardii 88213917934 [facility] OXYCODONE HCL 10 MG TABS Take 1 tablet by mouth Every 4 (Four) Hours As Needed for Moderate Pain for up to 3 days. 10/23 oxycodone 26631414071 [facility] NICOTINE 14 MG/24HR PT24 Place 1 patch on the skin as directed by provider Daily. 11/02 nicotine 13621244937 [facility] METRONIDAZOLE 500 MG TABS Take 1 tablet by mouth Every 12 (Twelve) Hours for 14 days. 11/03 metronidazole 57640091044 [facility] METOPROLOL SUCCINATE ER 100 MG [id number] Take 1 tablet by mouth Daily. 11/02 metoprolol succinate 58669461367 [facility] METHADONE HCL 5 MG TABS Take 1 tablet by mouth Every 8 (Eight) Hours. 11/02 methadone 09071075906 [facility] METFORMIN HCL 1000 MG TABS Take 1 tablet by mouth 2 (Two) Times a Day With Meals. 11/02 metformin 70423920591 [facility] LOVASTATIN 10 MG TABS Take 1 tablet by mouth Every Night. 11/02 lovastatin 49417986703 [facility] LISINOPRIL-HYDRO CHLOROTHIAZIDE 20-25 MG TABS Take 2 tablets by mouth Daily. 11/02 lisinopril-hydroc hlorothiazide 00639572006 [facility] insulin NPH-insulin regular (humuLIN 70/30,novoLIN 70/30) (7 Inject 70 Units under the skin into the appropriate area as directed 2 (Two) Times a Day With Meals. 11/02 humuLIN 70/30,novoLIN 70/30 [facility] GABAPENTIN 800 MG TABS Take 1 tablet by mouth 3 (Three) Times a Day. 11/02 gabapentin 32940596603 [facility] empagliflozin (JARDIANCE) 10 MG tablet tablet Take 1 tablet by mouth Daily. 11/02 JARDIANCE [facility] DEXCOM G7 SENSOR Use. 11/02 blood-glucose sensor 96701505074 [facility] VITAMIN D3 50 MCG (2000 UT) TABS Take 1 tablet by mouth Daily. 11/02 cholecalciferol (vitamin d3) 14342752880 [facility] ceftriaxone jocelin lindsay Rocephin 2G IV [id number] 09/22 ceftriaxone jocelin Cordova RN Medications Administered [...]
--- OUTSIDE RECORDS SUMMARY | 2025-07-27 07:55 | XMS_ITS | Data Portability ---
Author Organization [facility] [place] [facility] Address [address] [place] [address] Care Team Providers Care Coal Cager Name Role Phone RAYRAY ORDONEZ Primary Care Provider Unavailabl e Assessment No assessment recorded. Plan of Treatment Reminders Order Date Submit Date Provider Last Modified By Organization Details Last Modified Time Details Appointments None recorded. Lab None recorded. Referral None recorded. Procedures None recorded. Surgeries None recorded. Imaging None recorded. Medication Orders tadalafil 20 mg tablet 2022 023 [id number], [address] , [place], [place], [id number], 3 14:45:31 Patient TargetsNo targets recorded. Patient InstructionsNo instructions recorded. Reason for Referral None Reported. Problems Name Problem SNOMED Code Status Onset Date Resolution Date Notes Provider Name and Address Organization Details Recorded Time Heart disease 82319386 Active 2022 Selma mcmillan, [facility] [place] [facility] [place] 3 13:42:47 Hypertensive disorder 61811761 Active 2022 Selma mcmillan, [facility] [place] [facility] [place] 3 13:43:01 Diabetes mellitus 07010438 Active 2022 Selma mcmillan, [facility] - [facility] [place] & [place] 3 13:43:30 Anxiety 51260129 Active 2022 eSlma mcmillan, [facility] - [facility] [place] & [place] 3 13:43:39 Chronic obstructive pulmonary disease 51152020 Active 2022 Selma mcmillan, [facility] - [facility] [place] & [place] 3 13:43:46 Problem Notes None recorded. Medical Equipment None Reported. Allergies No known drug allergies Medications Name Sig Start Date Stop Date Status Note LastModified by Organization Details LastModified Time albuterol sulfate 0.63 mg/3 mL solution for nebulization active Not Available Not Available Not Available bupropion HCl SR 150 mg tablet,12 hr sustained-rele ase active Not Available Not Available Not Available metoprolol tartrate 100 mg tablet active Not Available Not Available No t Available lisinopril 20 mg tablet active Not Available Not Available No t Available ondansetron HCl 4 mg tablet active Not Available Not Available Not Available metoprolol succinate ER 100 mg tablet,extende d release 24 hr active Not Available Not Available Not Available amlodipine 5 mg tablet active Not Available Not Available No t Available sulfamethoxazo le 800 mg-trimethopri m 160 mg tablet active Not Available Not Available Not Available lovastatin 10 mg tablet active Not Available Not Available No t Available aspirin 81 mg tablet,delayed release active Not Available Not Available Not Available meloxicam 7.5 mg tablet active Not Available Not Available No t Available gabapentin 800 mg tablet active Not Available Not Available No t Available OneTouch Ultra Test strips USE TO TEST BLOOD SUGAR TWICE DAILY OR DIRECTED active Not Available Not Available No t Available amlodipine 10 mg tablet active Not Available Not Available No t Available metformin 1,000 mg tablet active Not Available Not Available Not Available Humulin 70/30 U-100 Insulin 100 unit/mL subcutaneous suspension active Not Available Not Available N ot Available bupropion HCl 75 mg tablet active Not Available Not Available Not Available lisinopril 20 mg-hydrochloro thiazide 25 mg tablet active Not Available Not Available Not Available diclofenac sodium 75 mg tablet,delayed release TAKE 1 TABLET BY MOUTH EVERY 12 HOURS active Not Available Not Available No t Available hydrochlorothi azide 25 mg tablet active Not Available Not Available Not Available albuterol sulfate HFA 90 mcg/actuation aerosol inhaler active Not Available Not Available Not Available methadone 5 mg tablet active Not Available Not Available Not Available oxycodone 5 mg tablet active Not Available Not Available Not Available tadalafil 20 mg tablet TAKE 1 TABLET BY MOUTH NEEDED DIRECTED active Not Available Not Available No t Available BD Ultra-Fine Mini Pen Needle 31 gauge x 3/16 active Not Available Not Availabl e Not Available Symbicort 160 mcg-4.5 mcg/actuation HFA aerosol inhaler active Not Available Not Available Not Available Symbicort 80 mcg-4.5 mcg/actuation HFA aerosol inhaler active Not Available Not Available Not Available cholecalcifero l (vitamin D3) 50 mcg (2,000 unit) tablet active Not Available Not Available Not Available Stool Softener 100 mg tablet active Not Available Not Availabl e Not Available BD Insulin Syringe Ultra-Fine 1 mL 31 gauge x 5/16 active Not Available Not Available Not Available Dexcom G7 Purchasing Officer active Not Available Not Available Not Available Dexcom G7 Sensor device active Not Available Not Availabl e Not Available Ozempic 0.25 mg or 0.5 mg (2 mg/3 mL) subcutaneous pen injector active Not Available Not Available Not Available Vitals Date Recorded Body height Body mass index (BMI) Body weight Body temperature Provider Name and Address Organization Details Last Updated DateTime 03/13/2023 185.42 cm 31.7 kg/m2 479147.17 g 97.7 [degF] Selma Oh [facility] & [place] 03/13/2023 13:42:11 Social History Question Answer Notes LastModified by Organizat ion Details LastModified Time Tobacco Smoking Status Never Smoker Selma Oh [facility] & [place] 03/13/2023 13:44:09 What Is Your Level Of Caffeine Consumption? None [email or web address] Information not available 03/13/2023 Sex: Unknown Functional Status Question Answer Note LastModified by Organization D etails LastModified Time What is your level of alcohol consumption? None [email or web address] Information not available 03/13/2023 Mental Status None recorded. Family History Relationship Description Onset Age of this Age Resolved Age Notes LastModified by Organization Details LastModified Time Father No current problems or disability [email or web address] Not available 02/15 13:43:58 Mother No current problems or disability [email or web address] Not available 02/15 13:43:58 Medical History No medical history recorded. Past Encounters Encounter ID Performer Location Encounter Start Date Encounter Closed Date Diagnosis/Indication Diagnosis SNOMED-CT Code Diagnosis ICD10 Code Diagnosis IMO Codes Diagnosis Note [id number] Mckinley Ley Jr, MD [facility] [address] [address] 03/13/2023 13:41:15 03/13/2023 13:59:00 Erectile dysfunction 980243939 F52.21 patient with erectile dysfunctio n which is refractory to oral medication s as well has intracorpo real injections . States he has discussed penile implant with Dr. Vega. States he was to see Dr. Barrett regarding an implant but never heard from their office. Told the patient that I do not perform implants and try to get him in to see Dr. Simpson. He would like to try the Cialis 20 mg again. Health Concerns Section Related Observation LastModified by Organization Detai ls LastModified Time None Recorded Concern Status LastModified by Organization Details LastModified Time None Recorded Advance Directives Directive None Recorded Payers Insurance Date Sequence Insurance Name Policy Number Policy Peña Covered Member ID Peña Member ID Guarantor Name 04/20/2024 1 [facility] (MEDICAID HMO) Elia Kelley [id number] Elia Kelley Notes Date Note Type Note Provider Name and Address Organization Details Recorded Time 03/13/2023 text/html patient is a 53-year-old white male with a history of erectile dysfunction and penile condylomas. He returns today for erectile dysfunction issues. He has been treated in the past with oral medications as well as TriMix without results. He states no improvement at all with up to 40 units of the TriMix. He states that he had seen Dr. Scar Vega and had discussed penile implant and Dr. Vega is going to refer him to Dr. Simpson but he would not heard back from Dr. Simpson office. Mckinley Ley Jr, MD [address] [place] [address], [address], [place], [address], [place] [facility] [place] 03/13/2023 14:44:51
--- OUTSIDE RECORDS SUMMARY | 2025-07-27 07:55 | XMS_ITS | Clinical Summary ---
Author Organization [facility] Address [address] [place] [address] Care Team Providers Care Revenue Audit Clerk Name Role Phone J Carlos Hi MD Primary Care Provider [phone] Allergies No known active allergies Medications Continuous [...] sprayIndications :Opioid Overdose Call 911. Don't prime. Clements in 1 nostril for overdose. Repeat in [...] Date Smoking Tobacco: Every Day Cigarettes 0.5 26.9 Started: 1998 Smokeless Tobacco: Never Tobacco Cessation:Ready [...] materials from doctor or pharmacy Never 10/15/2024 [facility] Utilities Answer Date Recorded In the past 12 months has th e [employer], gas, oil, or water [employer] threatened to shut off services in [...] housing, medical care, and heating? Hard 08/17/2024 [facility] [place] [facility] Occupat ional Health - Occupational Stress [...] GED or equivalent No 08/27/2024 Preferred Language Mauritian 08/27/2024 PHQ-2 Answer Date Recorded Patient Health [...] VACCINE 04/16/2025 Medical Devices Implanted Type Area Timber Treating Tank Operator Device Identifier Shelf Expiration Date Model / Serial / Lot Erectile Dysfunction Implant [place] [employer] Procedures Procedure Name Priority Date/Time Associated Diagnosis Comments HEMOGLOBIN A1C Add-On 08/14/2024 9:37 PM EST from Last 3 Months or Most Recently Relevant to Health Maintenance Results * (ABNORMAL) Hemoglobin A1c (08/14/2024 9:37 PM EST) Hemoglobin A1C 8.70(H) 4.80 - 5.60 % 08/15/2024 2:05 AM EST [facility] Blood Venipuncture / Unknown 08/14/2024 9:37 PM EST 08/14/2024 9:44 PM EST Narrative [facility] - 08/15/2024 2:05 AM EST Hemoglobin A1C Ranges: Increased Risk for Diabetes 5.7% to 6.4% Diabetes >= 6.5% Diabetic Goal < 7.0% Bahman Romo MD LAB BLOOD ORDERABLES Final Re sult [facility]
[address] [place] [address], from Last 3 Months or Most Recently Relevant to Health [place] [address] [place] [id number] [facility] Advance Directives * CPR (Attempt to [...] or is breathing): Full Support Care Teams Revenue Audit Clerk Relationship Specialty Start Date End Date J Carlos Hi MD [address] [place] [address] (work) PCP - General Family Medicine 08/17/24
--- NOTE | 2025-07-27 08:00 | US_ITS ---
FINAL REPORT TECHNIQUE: Multiple transverse and longitudinal images CLINICAL HISTORY: Cirrhosis/elevated AFP FINDINGS: The liver is hyperechoic with coarsened echotexture. The contour is mildly nodular. The appearance is compatible with reported cirrhosis. No mass is identified. There is no biliary ductal dilatation. The gallbladder is normal. No free fluid is identified. IMPRESSION: Findings compatible with cirrhosis without evidence of ascites or liver lesion. Reviewed, Interpreted and Dictated by Lauren Awad MD Transcribed by Judy Mendoza Authenticated and . [facility]
[2025-07-27 08:54] LABS: Ammonia 11 umol/L (9-30)
[2025-07-27 09:31] LABS: Alanine Aminotransferase 23 U/L (12-78); Albumin Level 4.2 g/dl (3.5-5.0); Albumin/Globulin Ratio 1.3 (1.1-1.8); Alkaline Phosphatase 233 U/L (38-126); Anion Gap 10.2 mEq/L (5-15); Aspartate Amino Transferase 29 U/L (17-59); Bilirubin,Total 0.6 mg/dl (0.2-1.3); Blood Urea Nitrogen 27 mg/dl (9-20); Calcium 9.3 mg/dl (8.4-10.2); Carbon Dioxide 32 mmol/L (22.0-30.0); Chloride 94 mmol/L (98-107); Creatinine,Serum 1.10 mg/dl (0.66-1.25); Estimated Glomerular Filt Rate 69 ml/min (>60); GFR (African American) 84 ML/MIN (>60); Globulin 3.3 g/dL (1.3-3.2); Glucose 172 mg/dl (74-100); Potassium 3.2 mmoL/L (3.5-5.1); Sodium 133 mmol/L (136-145); Total Protein,Serum 7.5 g/dl (6.3-8.2)
[2025-07-28 15:12] LABS: Deamidated Gliadin Abs, IgA 13 units (0-19); Deamidated Gliadin Abs, IgG 4 units (0-19)
[2025-07-30 02:13] LABS: ALT (SGPT) P5P 19 IU/L (0-55); AST (SGOT) P5P 30 IU/L (0-40); Alpha 2-Macroglobulins, Qn 348 mg/dL (110-276); Bilirubin, Total 0.3 mg/dL (0.0-1.2); Cholesterol, Total 123 mg/dL (100-199); GGT 100 IU/L (0-65); Glucose 182 mg/dL (70-99); Triglycerides 168 mg/dL (0-149)
== END 2025-07-27 23:59 | disposition home or self-care (01) ==
LOC: RAD 07:53
PROVIDERS: PCP Family Medicine; Visit Provider Nurse Practitioner Family
DX: K74.60 Unspecified cirrhosis of liver (principal)
CPT/HCPCS: 36415; 76705; 80053; 82105; 82140; 82172; 82247; 82390; 82465; 82947; 82977; 83010; 83521; 84450; 84460; 84478; 86231; 86258; 86364

== ENCOUNTER 2025-08-10 14:43 | Outpatient (CLI) | payer OTHER, SELFPAY ==
--- OUTSIDE RECORDS SUMMARY | 2025-08-10 14:49 | XMS_ITS | Clinical Summary ---
Author Organization [facility] Address [address] [place] [address] Phone Care Team Providers Care Site Project Manager Name Role Phone Mita Long Unavailable Unavailable Conditions or Problems Problem Name Problem Code Onset Date Status Entry Date Provider Comment Standard Description Annotate Acquired absence of right great toe Z89.411 (ICD-10-CM ) 11/04 Active 11/04 Analia Benjamin Acquired absence of right great toe Skin tissue necrosis 06567226 (SNOMED CT) 11/04 Active 11/04 Analia Benjamin Skin necrosis Nausea and vomiting 08864227 (SNOMED CT) 11/04 Active 11/04 Analia Benjamin Nausea and vomiting MSSA infection 760439381 (SNOMED CT) 10/24 Active 10/24 Analia Benjamin Infection by methicillin sensitive Staphylococcus aureus DM chronic ulcer of left foot, plantar surface, 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.621) L97.522 (ICD-10-CM ) 10/24 Active 10/24 Analia Benjamin Non-pressure chronic ulcer of other part of left foot with fat layer exposed Cellulitis, foot, left 685755864 (SNOMED CT) 10/24 Active 10/24 Analia Benjamin Cellulitis of foot Hypokalemia 00573978 (SNOMED CT) 10/24 Active 10/24 Analia Benjamin Hypokalemia Obesity, class 1, BMI 30 to <35 E66.811 (ICD-10-CM ) 10/24 Active 10/24 Analia Benjamin Obesity, class 1 Nicotine dependence, cigarettes F17.210 (ICD-10-CM ) 10/24 Active 10/24 Analia Alexander Nicotine dependence, cigarettes, uncomplicated COPD 52942906 (SNOMED CT) 10/24 Active 10/24 Analia Alexander Chronic obstructive pulmonary disease DM II with diabetic polyneuropathy E11.42 (ICD-10-CM ) 10/24 Active 10/24 Analia Alexander Type 2 diabetes mellitus with diabetic polyneuropathy Benign Essential Hypertension 68225689 (SNOMED CT) 10/24 Active 10/24 Analia Alexander Benign hypertension Medications Medication Instructions Start Date Stop Date Generic Name NDC Provider CEFUROXIME AXETIL 500 MG TABS 1 tablet by mouth twice a day 10/26 cefuroxime axetil [id number] Anthony Polanco METHADONE HCL 5 MG TABS Take 1 tablet by mouth every eight hours 10/26 methadone 04716254004 Anthony Polanco ceftriaxone jocelin lindsay Rocephin 2G IV [id number] 09/22 ceftriaxone jocelin Cordova RN CEFUROXIME AXETIL 500 MG TABS 1 tablet by mouth twice a day 10/26 cefuroxime axetil 24971285493 Denys Elizabeth MD METFORMIN HCL 1000 MG TABS Take 1 tablet by mouth twice a day metformin 92114833887 Yg Joao insulin NPH-insulin regular (humuLIN 70/30,novoLIN 70/30) (7 Inject 70 unit subcutaneously twice a day as directed humuLIN 70/30,novoLIN 70/30 Yg Joao DEXCOM G7 SENSOR Use blood-gl ucose sensor 97740773738 Yg Joao METRONIDAZOLE 500 MG TABS Take 1 tablet by mouth every twelve hours 11/03 metronidazole 60759553399 Yg Joao LOVASTATIN 10 MG TABS Take 1 tablet by mouth every night lovastatin 70189242697 Yg Joao LISINOPRIL-HYDRO CHLOROTHIAZIDE 20-25 MG TABS Take 2 tablet by mouth once a day lisinopril-hydroc hlorothiazide 74340773512 [facility] VITAMIN D3 50 MCG (1999) TABS Take 1 tablet by mouth once a day cholecalciferol (vitamin d3) 30709672090 [facility] SACCHAROMYCES BOULARDII 250 MG CAPS Take 1 capsule by mouth twice a day saccharomyces boulardii 56232791655 [facility] METHADONE HCL 5 MG TABS Take 1 tablet by mouth every eight hours 10/26 methadone 76297190784 [facility] GABAPENTIN 800 MG TABS Take 1 tablet by mouth three times a day gabapentin 98913580971 [facility] empagliflozin (JARDIANCE) 10 MG tablet tablet Take 1 tablet by mouth once a day JARDIANCE [facility] NICOTINE 14 MG/24HR PT24 Place 1 patch to skin once a day as directed nicotine 29944951525 [facility] METOPROLOL SUCCINATE ER 100 MG CE38O-FIW Take 1 tablet by mouth once a day metoprolol succinate 50923782015 [facility] SACCHAROMYCES BOULARDII 250 MG CAPS Take 1 capsule by mouth 2 (Two) Times a Day. 11/02 saccharomyces boulardii 13595130187 [facility] OXYCODONE HCL 10 MG TABS Take 1 tablet by mouth Every 4 (Four) Hours As Needed for Moderate Pain for up to 3 days. 10/23 oxycodone 89673349063 [facility] NICOTINE 14 MG/24HR PT24 Place 1 patch on the skin as directed by provider Daily. 11/02 nicotine 26911807323 [facility] METRONIDAZOLE 500 MG TABS Take 1 tablet by mouth Every 12 (Twelve) Hours for 14 days. 11/03 metronidazole 08302796729 [facility] METOPROLOL SUCCINATE ER 100 MG HD36O-SKE Take 1 tablet by mouth Daily. 11/02 metoprolol succinate 33430201762 [facility] METHADONE HCL 5 MG TABS Take 1 tablet by mouth Every 8 (Eight) Hours. 11/02 methadone 06142908398 [facility] METFORMIN HCL 1000 MG TABS Take 1 tablet by mouth 2 (Two) Times a Day With Meals. 11/02 metformin 88602774956 [facility] LOVASTATIN 10 MG TABS Take 1 tablet by mouth Every Night. 11/02 lovastatin 56061805744 [facility] LISINOPRIL-HYDRO CHLOROTHIAZIDE 20-25 MG TABS Take 2 tablets by mouth Daily. 11/02 lisinopril-hydroc hlorothiazide 30640386346 [facility] insulin NPH-insulin regular (humuLIN 70/30,novoLIN 70/30) (7 Inject 70 Units under the skin into the appropriate area as directed 2 (Two) Times a Day With Meals. 11/02 humuLIN 70/30,novoLIN 70/30 [facility] GABAPENTIN 800 MG TABS Take 1 tablet by mouth 3 (Three) Times a Day. 11/02 gabapentin 52607767899 [facility] empagliflozin (JARDIANCE) 10 MG tablet tablet Take 1 tablet by mouth Daily. 11/02 JARDIANCE [facility] DEXCOM G7 SENSOR Use. 11/02 blood-glucose sensor 86905212872 [facility] VITAMIN D3 50 MCG (2000 UT) TABS Take 1 tablet by mouth Daily. 11/02 cholecalciferol (vitamin d3) 10021788364 [facility] ceftriaxone jocelin lindsay Rocephin 2G IV [id number] 09/22 ceftriaxone jocelin Cordova RN Medications Administered [...]
--- OUTSIDE RECORDS SUMMARY | 2025-08-10 14:50 | XMS_ITS | Clinical Summary ---
Author Organization [facility] Address [address] [place] [address] Care Team Providers Care Log Preparer Name Role Phone Tesfaye Calvillo MD Unavailable [phone] Tiffany Pressley Primary Care Provider [phone] Allergies Active Allergy Reactions Criticality Noted Date [...] 2) 02/10/2020 [facility]-Depression Screening 11/11/2024 024, 06/17/2023 [facility]-VWKOB-15 Vaccine ( season) 2025 [facility]-Influenza Vaccine (#1) 2025 [facility]-Hepatitis C Screening Completed 2018, 02/23/2019 [facility]-Diabetes: Hemoglobin A1C Discontinued , 07/12/2023, 03/30/2019 [facility]-Obesity Intervention Completed 024, 06/17/2023 HPV Vaccines Aged Out No longer [...] this topic Medical Devices Implanted Type Area Technician Anatomic Pathology Device Identifier Shelf Expiration Date Model / Serial / Lot Retractor Male Sling - [id number] Implanted:Qty : 1 on 09/25/2023 by Tesfaye Calvillo MD at [facility] Implant N/A: Penis [employer]-351 744 05/27/2028 [id number] / / [id number] Kit Ams 700 Accessory - [id number] Implanted:Qty : 1 on 09/25/2023 by Tesfaye Calvillo MD at [facility] Implant N/A: Penis [employer]-351 744 05/29/2028 [id number] / / [id number] Conceal Iz - [id number] Implanted:Qty : 1 on 09/25/2023 by Tesfaye Calvillo MD at [facility] Implant N/A: Penis [employer]-351 744 06/18/2025 [id number] / / [id number] Cx Preconnect Ms 21cm Ps Iz - [id number] Implanted:Qty : 1 on 09/25/2023 by Tesfaye Calvillo MD at [facility] Implant N/A: Penis [employer]-351 744 07/31/2025 [id number] / / [id number] Prosthesis Penile Movie Projectionist Rte Snapcone - [id number] Implanted:Qty : 1 on 09/25/2023 by Tesfaye Calvillo MD at [facility] Implant N/A: Penis [employer]-351 744 08/31/2028 [id number] / / [id number] Spinal Cord Stimulator Spinal Cord Stimulator Right: [...] Adults <6.0% Children and Adolescents <7.5% Source: [place] [employer]. Standards of medical care in diabetes,2017. Diabetes Care.2017:40 (suppl 1):S1-S135. HbA1c assay performed by an ion-exchange chromatography method that is certified traceable to the DCCT. us Tesfaye Calvillo MD LAB BLOOD ORDERABLES Final Result [facility] [address] [place] [address] * Vincent Hepatitis C Antibody (03/29/2019 11:41 PM EDT) Vincent Hepatitis C Ab NEGATIVE Reference Range: Negative SUNQUEST 03/29/2019 11:4 1 PM EDT 03/29/2019 11:56 PM EDT Jake Reyes MD LAB BLOOD ORDERABLES F inal Result SUNQUEST from Last 3 Months or Most Recently Relevant to Health Maintenance Insurance [employer] [facility] MEDICAID Care Teams Log Preparer Relationship Specialty Start Date End Date Tiffany Pressley PA [address] [place] [address] PCP - General 12/04/23 Tesfaye Calvillo MD [address] [place] [address] Consulting Physician Urology 11/11/23
--- OUTSIDE RECORDS SUMMARY | 2025-08-10 14:50 | XMS_ITS | Clinical Summary ---
Author Organization [facility] Address [address] [place] [address] Care Team Providers Care Nib Inspector Name Role Phone J Carlos Hi MD Primary Care Provider [phone] Allergies No known active allergies Medications Continuous [...] sprayIndications :Opioid Overdose Call 911. Don't prime. Stark in 1 nostril for overdose. Repeat in [...] materials from doctor or pharmacy Never 10/15/2024 [facility] Utilities Answer Date Recorded In the past 12 months has th e [employer], gas, oil, or water [employer] threatened to shut off services in your [...] housing, medical care, and heating? Hard 08/17/2024 [facility] [place] of Occupat ional Health - Occupational Stress [...] none 08/27/2024 Family and Community Support Answer Maroks e Recorded If for any reason you [...] GED or equivalent No 08/27/2024 Preferred Language Lao 08/27/2024 PHQ-2 Answer Date Recorded Patient Health [...] VACCINE 04/16/2025 Medical Devices Implanted Type Area Special Education Teaching Assistant Device Identifier Shelf Expiration Date Model / Serial / Lot Erectile Dysfunction Implant [employer] Procedures Procedure Name Priority Date/Time Associated Diagnosis Comments HEMOGLOBIN A1C Add-On 08/14/2024 9:37 PM EST from Last 3 Months or Most Recently Relevant to Health Maintenance Results * (ABNORMAL) Hemoglobin A1c (08/14/2024 9:37 PM EST) Hemoglobin A1C 8.70(H) 4.80 - 5.60 % 08/15/2024 2:05 AM EST [facility] Blood Venipuncture / Unknown 08/14/2024 9:37 PM EST 08/14/2024 9:44 PM EST Narrative [facility] - 08/15/2024 2:05 AM EST Hemoglobin A1C Ranges: Increased Risk for Diabetes 5.7% to 6.4% Diabetes >= 6.5% Diabetic Goal < 7.0% Bahman Romo MD LAB BLOOD ORDERABLES Final Re sult [facility]
[address] [place] [address], from Last 3 Months or Most Recently Relevant to Health [place] [address] [place] [address] [facility] Advance Directives * CPR (Attempt to Resuscitate) [...] or is breathing): Full Support Care Teams Nib Inspector Relationship Specialty Start Date End Date J Carlos Hi MD [address] [place] [address] (work) PCP - General Family Medicine 08/17/24
--- OUTSIDE RECORDS SUMMARY | 2025-08-10 14:50 | XMS_ITS | Encounter Summary ---
Author Organization [facility] Address [address] [place] [address] Care Team Providers Care Compounding Scaler Name Role Phone Eugene Richards MD Primary Care Provider [phone] Tesfaye Calvillo MD Unavailable [phone] Tiffany Pressley Primary Care Provider [phone] Reason for Referral * Consultation (Routine) - Closed Specialty Diagnoses / Procedures Referred By Cristiano gonzalez Referred To Contact Orthopaedic Surgery Diagnoses Rotator cuff tear arthropathy, left Geoffrey Hickman DO [address] [place] [address] [place] [address] Phone: tel: fax: Andres Segura MD [address] [facility] [address] [place] [address] Phone: tel: fax: Referral ID Status Reason Start Date Expiration Date V isits Requested Visits Authorized [id number] Closed Specialty Services Required 11/08/2023 05/09/2025 1 1 Encounter Details Date Type Department Care Team (Late st Contact Info) Description 11/08/2023 Community [facility] [address] [place] [address] Geoffrey Hickman DO [address] [place] [address] [place] [address] Rotator cuff tear arthropathy, left (Primary Dx) [...] documented as of this encounter Care Teams Compounding Scaler Relationship Specialty Start Date End Date Eugene Richards MD [address] [place] [address] PCP - General 01/27/21 12/03/23 Tiffany Pressley PA [address] [place], [place] [id number] PCP - General 12/04/23 Tesfaye Calvillo MD [address] [facility] [address] [place] [address] Consulting Physician Urology 11/11/23 documented as of this encounter
[2025-08-10 15:20] LABS: Hematocrit 39.1 % (42.0-52.0); Hemoglobin 13.7 g/dL (14.1-18.0); Immature Granulocytes % 0.2 %; Mean Corpuscular HGB Conc 35.0 g/dL (31.8-35.4); Mean Corpuscular Hemoglobin 30.8 pg (27.0-31.2); Mean Corpuscular Volume 87.9 fl (80-94); Nucleated Red Blood Cells % 0 %; Platelet Count 110 K/mm3 (142-424); Red Blood Count 4.45 M/mm3 (4.60-6.20); Red Cell Distribution Width-SD 38.6 fL; White Blood Count 6.6 K/mm3 (4.8-10.8)
[2025-08-10 15:55] LABS: Anion Gap 10.5 mEq/L (5-15); Blood Urea Nitrogen 15 mg/dl (9-20); Calcium 9.4 mg/dl (8.4-10.2); Carbon Dioxide 28 mmol/L (22.0-30.0); Chloride 93 mmol/L (98-107); Creatinine,Serum 0.80 mg/dl (0.66-1.25); Estimated Glomerular Filt Rate 100 ml/min (>60); GFR (African American) 121 ML/MIN (>60); Glucose 267 mg/dl (74-100); Potassium 3.5 mmoL/L (3.5-5.1); Sodium 128 mmol/L (136-145)
== END 2025-08-10 23:59 | disposition home or self-care (01) ==
LOC: LAB 14:44
PROVIDERS: PCP Family Medicine; Visit Provider Nurse Practitioner
DX: I73.9 Peripheral vascular disease, unspecified (principal); R94.31 Abnormal electrocardiogram [ECG] [EKG]; R06.09 Other forms of dyspnea; Z72.0 Tobacco use; I10 Essential (primary) hypertension; E11.42 Type 2 diabetes mellitus with diabetic polyneuropathy; D69.6 Thrombocytopenia, unspecified
CPT/HCPCS: 36415; 80048; 85025

== ENCOUNTER 2025-08-23 08:20 | Day surgery (SDC) | payer OTHER, SELFPAY ==
[2025-08-23] VITALS (11 sets, daily range): BP systolic 118–141; BP diastolic 79–85; PULSE 65–75; RESP 18–20; TEMP 36.7; O2SAT 96–97; BMI 32.5
--- NOTE | 2025-08-23 07:30 | IR_ITS ---
APPROVED REPORT Patient Location: Outpatient PROCEDURES Left heart catheterization Left ventriculogram Selective coronary angiogram Drug-eluting stent deployment to the posterior lateral ventricular branch off the large dominant right coronary artery Drug-eluting stent deployment to the mid LAD Intravascular ultrasound of the LAD INDICATION Coronary artery disease, Abnormal CCTA, Angina pectoris, Complex angiography/intervention requiring IVUS for guidance Informed consent was obtained prior to the procedure. COMPLICATIONS none Estimated Blood Loss: less than 10ml TECHNIQUE One percent lidocaine used to anesthetize the right anterior aspect of the wrist. The right radial artery was accessed via the Seldinger technique. A 6 Polish sheath was placed in the right radial artery. 2.5 mg of Verapamil, 800 mcg of nitroglycerin, 1mg Lidocaine and 5000 U Heparin were given through the arterial sheath. The JL3 catheter was also used to perform left heart catheterization, left ventriculogram and selective coronary angiogram. At the end of the diagnostic angiogram therapeutic heparin was administered giving a therapeutic ACT and the guide catheter was placed in the right coronary followed by Choice PT extra-support wire placed distally. A telescope guide liner was advanced into the distal right coronary artery and the wire was used to traverse the stenosis in the posterior lateral branch. A 2.5 x 26 mm [place] frontier stent was deployed at 16 camron reducing the severe stenosis to 0%. YOLANDA-3 flow was present before and after the procedure. Following this the guide catheter was placed into the left main artery followed by Choice PT extra-support wire placed distally in the LAD. A 3 mm x 15 mm [place] frontier stent was deployed at 18 camron reducing the severe stenosis to 0%. Following this intravascular ultrasound probe was advanced which demonstrated there was moderate calcification in the proximal LAD which did not meet angiographic criteria for stenting followed by a widely patent stent in the mid LAD. Distally there was atheromatous plaque distal to the transition however this extended throughout the course of the LAD therefore no additional stents were placed. YOLANDA II flow was present at the beginning of the procedure in the LAD with YOLANDA-3 flow at the end of the procedure. 800 mcg of intracoronary nitroglycerin was administered. At the end of the procedure the apparatus was removed the sheath was removed and hemostasis was achieved using TR banding patient was transferred to the postop boarding in stable condition ANGIOGRAPHIC RESULTS The left main artery Has a smooth ostial 20% stenosis The left anterior descending artery Has proximal calcified 30% stenosis with a calcified mid vessel 70 to 80% stenosis with additional 60% stenosis throughout the mid LAD and distally The circumflex artery Nondominant and has proximal 10 to 20% stenosis with a mid vessel 30% stenosis The right coronary artery Massively large and dominant which is highly tortuous and gives rise to a large posterior descending artery which is widely patent with mild atheromatous 10% plaque with a large posterior lateral branch which has a proximal to mid vessel focal 80 to 90% stenosis The CISNEROS ventriculogram reveals Slightly hyperdynamic at 70% The left ventricular end-diastolic pressure 22 mmHg IMPRESSION Severe two-vessel coronary disease as described above Successful stenting of the large posterior lateral branch off the dominant right coronary artery severe disease reduced to 0% with 1 drug-eluting stent Successful stenting of the mid LAD severe disease reduced to 0% with 1 drug-eluting stent Persistent moderate to severe mid to distal LAD disease as described above with additional mild to moderate proximal calcification in the LAD as described above Hyperdynamic ventricle Mildly elevated LVEDP PLAN 1. Effient and aspirin 2. LDL less than 55 to be achieved with high intensity statin 3. Avoidance of tobacco products 4. Risk factor modification 5. Cardiac rehabilitation 6. Recommend sleep study Electronically signed by : Jayro Knapp MD 08/23/2025 12:12:11
[2025-08-23 08:48] LABS: Hematocrit 41.2 % (42.0-52.0); Hemoglobin 14.4 g/dL (14.1-18.0); Immature Granulocytes % 0.3 %; Mean Corpuscular HGB Conc 35.0 g/dL (31.8-35.4); Mean Corpuscular Hemoglobin 31.3 pg (27.0-31.2); Mean Corpuscular Volume 89.6 fl (80-94); Nucleated Red Blood Cells % 0 %; Platelet Count 135 K/mm3 (142-424); Red Blood Count 4.60 M/mm3 (4.60-6.20); Red Cell Distribution Width-SD 40.2 fL; White Blood Count 7.4 K/mm3 (4.8-10.8)
[2025-08-23 08:53] LABS: Chloride 92 mmol/L (98-107)
[2025-08-23 08:54] LABS: Potassium 3.7 mmoL/L (3.5-5.1); Sodium 136 mmol/L (136-145)
[2025-08-23 08:56] LABS: Blood Urea Nitrogen 15 mg/dl (9-20); Creatinine Clearance Estimated 147 mL/min (50-200); Creatinine,Serum 0.90 mg/dl (0.66-1.25); Estimated Glomerular Filt Rate 88 ml/min (>60); GFR (African American) 106 ML/MIN (>60)
[2025-08-23 08:57] LABS: Anion Gap 13.7 mEq/L (5-15); Calcium 9.2 mg/dl (8.4-10.2); Carbon Dioxide 34 mmol/L (22.0-30.0); Glucose 255 mg/dl (74-100)
[2025-08-23] MEDS: HEPARIN 1,000 UNITS/500ML NS (CATH LAB) 3000 UNIT IV (11:29)
[2025-08-23] MEDS: VERAPAMIL 2.5MG/ML 2ML VIAL 2.5 MG IV (11:29)
[2025-08-23] MEDS: LIDOCAINE 1% 10ML MDV 10 ML IJ (11:29)
[2025-08-23] MEDS: HEPARIN 1,000 UNITS/ML 10ML VIAL (CATH LAB) 5000 UNIT IV (11:29)
[2025-08-23] MEDS: MIDAZOLAM HCL 1MG/ML 5ML VIAL 1 MG IV (11:30)
[2025-08-23] MEDS: NITROGLYCERIN 800MCG/8ML SYR (CATH LAB) 800 MCG IA (11:30)
[2025-08-23] MEDS: 0.9 % SODIUM CHLORIDE 500 ML 25 ML IV (11:30)
[2025-08-23] MEDS: FENTANYL 100MCG/2ML VIAL 50 MCG IV (11:31)
[2025-08-23] MEDS: PRASUGREL 10MG TAB 60 MG PO (12:15)
[2025-08-23] MEDS: IOPAMIDOL-370 (76%);100ML BOTTLE 120 ML IV (14:11)
[2025-08-23 17:29] LABS: CATHL Activated Clotting Time > 400 SEC (74-125)
--- NOTE | 2025-09-28 14:25 | PC.NURSE ---
09/28/2025 pt was scheduled for cardiac rehab eval on 09/07/2025. Pt didn't show and no contact.
== END 2025-08-23 15:23 | disposition home or self-care (01) ==
LOC: CATHLAB 08:21
PROVIDERS: PCP Family Medicine; Visit Provider Internal Medicine
PROC: 4A023N7 Measurement of Cardiac Sampling and Pressure, Left Heart, Percutaneous Approach (ICD-10-PCS; CPT 93452; principal; 2025-08-23 09:30)
DX: I25.119 Atherosclerotic heart disease of native coronary artery with unspecified angina pectoris (principal); R94.31 Abnormal electrocardiogram [ECG] [EKG]; R93.1 Abnormal findings on diagnostic imaging of heart and coronary circulation; R06.09 Other forms of dyspnea; I10 Essential (primary) hypertension; E11.42 Type 2 diabetes mellitus with diabetic polyneuropathy; E78.5 Hyperlipidemia, unspecified; D69.6 Thrombocytopenia, unspecified; K21.9 Gastro-esophageal reflux disease without esophagitis; I73.9 Peripheral vascular disease, unspecified; F17.210 Nicotine dependence, cigarettes, uncomplicated; Z79.84 Long term (current) use of oral hypoglycemic drugs; Z79.02 Long term (current) use of antithrombotics/antiplatelets; Z79.85 Long-term (current) use of injectable non-insulin antidiabetic drugs; Z79.4 Long term (current) use of insulin; Z79.51 Long term (current) use of inhaled steroids; Z79.899 Other long term (current) drug therapy
CPT/HCPCS: 80048; 85025; 85347; 92928; 92978; 93458; 99152; 99153; C1725; C1760; C1769; C1874; C1887; C9600; J1200; J1644; J2003; J3010; J7040; Q9967